=== PATIENT | male | born 1950 | race Caucasian/White ===

== ENCOUNTER → 2017-04-08 | Outpatient (CLI) | payer BC ==
[2017-04-08 08:18] LABS: BASOPHILS ABSOLUTE AUTO 0.04 K/mm3 (0.00-0.23); BASOPHILS PERCENT AUTO 0 % (0-2); EOSINOPHILS ABSOLUTE AUTO 0.07 K/mm3 (0.00-0.68); EOSINOPHILS PERCENT AUTO 1 % (0-6); Hemoglobin 13.7 g/dL (13.5-17.5); IMMATURE GRAN ABSOLUTE AUTO 0.04 K/mm3 (0.00-0.10); IMMATURE GRAN PERCENT AUTO 0 % (0-1); LYMPHOCYTES ABSOLUTE AUTO 0.78 K/mm3 (0.84-5.20); LYMPHOCYTES PERCENT AUTO 8 % (21-46); MONOCYTES ABSOLUTE AUTO 0.72 K/mm3 (0.16-1.47); MONOCYTES PERCENT AUTO 7 % (4-13); Mean Corpuscular HGB 30.7 pg (26.0-34.0); Mean Corpuscular HGB Conc 34.3 g/dL (31.5-36.5); Mean Corpuscular Volume 90 fL (80-100); NEUTROPHILS PERCENT AUTO 84 % (41-73); Platelet Count 211 K/mm3 (150-400); RDW Standard Deviation 39.1 fL (35.1-46.3); Red Blood Cell Count 4.46 M/mm3 (4.30-5.90); White Blood Cell Count 10.45 K/mm3 (4.00-11.30)
[2017-04-08 11:11] LABS: Alanine Aminotransfer (ALT/SGP 20 U/L (12-78); Albumin, Blood 3.8 g/dL (3.4-5.0); Alk Phos 73 U/L (50-136); Anion Gap 6 mmol/L (6-16); Aspartate Aminotrans (AST/SGOT 14 U/L (12-37); Bilirubin, Total 0.6 mg/dL (0.1-1.0); Blood Urea Nitrogen 22 mg/dL (8-24); Bun/Creatinine Ratio 24.7 (12.0-20.0); CO2, Blood 28 mmol/L (21-32); Calcium, Blood 9.4 mg/dL (8.5-10.1); Chloride, Blood 103 mmol/L (98-108); Creatinine, Blood 0.89 mg/dL (0.60-1.20); Globulin, Blood 3.7 g/dL (2.2-4.0); Glomerular Filtration Rate >60 (60-); Glucose, Blood 306 mg/dL (70-99); Potassium, Blood 4.4 mmol/L (3.5-5.5); Sodium, Blood 137 mmol/L (136-145); Total Protein, Blood 7.5 g/dL (6.4-8.2)
== END | disposition home or self-care (01) ==
LOC: LAB EV 08:13
PROVIDERS: Physician Assistant
DX: E11.9 Type 2 diabetes mellitus without complications (principal); M19.90 Unspecified osteoarthritis, unspecified site; R53.83 Other fatigue
CPT/HCPCS: 80053; 83036; 84443; 85025; 85651

== ENCOUNTER → 2017-10-16 | Outpatient (CLI) | payer BC ==
[2017-10-16 09:35] LABS: Microalb/Creat Ratio UR, Rand 3.681 mg/g (0.000-30.000); Microalbumin, Random Urine 6.7 mg/L (0.000-20.000)
== END | disposition home or self-care (01) ==
LOC: LAB EV 05:30
PROVIDERS: Internal Medicine Endocrinology, Diabetes & Metabolism
DX: E10.65 Type 1 diabetes mellitus with hyperglycemia (principal)
CPT/HCPCS: 82043; 82570

== ENCOUNTER → 2018-10-13 | Outpatient (CLI) | payer BC ==
[2018-10-13 11:19] LABS: Microalb/Creat Ratio UR, Rand 4.906 mg/g (0.000-30.000); Microalbumin, Random Urine 10.4 mg/L (0.000-20.000)
== END | disposition home or self-care (01) ==
LOC: LAB EV 05:15
PROVIDERS: Internal Medicine Endocrinology, Diabetes & Metabolism
DX: E10.65 Type 1 diabetes mellitus with hyperglycemia (principal)
CPT/HCPCS: 82043; 82570

== ENCOUNTER 2021-02-20 18:03 | Inpatient (IN) | payer BC, MEDICARE ==
[~2021-02-20] VITALS: Ht 175.3 cm; Wt 91.5 kg
[2021-02-20] MEDS ORDERED: ASPI81CH PO (18:45)
[2021-02-20] MEDS ORDERED: ATOR20 PO (18:46)
[2021-02-20] MEDS ORDERED: DICL75ER PO (18:46)
[2021-02-20] MEDS ORDERED: HUMALOG KW100 UNIT/1 SC (18:47)
[2021-02-20] MEDS ORDERED: GVOKE HYPO0.5 MG/0.2 SQ (18:47)
[2021-02-20] MEDS ORDERED: EUTHYROX50 MCG PO (18:48)
[2021-02-20] MEDS ORDERED: TOUJEO SOL300 UNIT/2 SC (18:49)
[2021-02-20 19:26] LABS: BASOPHILS ABSOLUTE AUTO 0.04 K/mm3 (0.00-0.23); BASOPHILS PERCENT AUTO 0 % (0-2); EOSINOPHILS ABSOLUTE AUTO 0.03 K/mm3 (0.00-0.68); EOSINOPHILS PERCENT AUTO 0 % (0-6); Hematocrit 45.4 % (37.0-53.0); Hemoglobin 15.1 g/dL (13.5-17.5); IMMATURE GRAN ABSOLUTE AUTO 0.03 K/mm3 (0.00-0.10); IMMATURE GRAN PERCENT AUTO 0 % (0-1); LYMPHOCYTES ABSOLUTE AUTO 0.59 K/mm3 (0.84-5.20); LYMPHOCYTES PERCENT AUTO 6 % (21-46); MONOCYTES ABSOLUTE AUTO 0.36 K/mm3 (0.16-1.47); MONOCYTES PERCENT AUTO 4 % (4-13); Mean Corpuscular HGB 31.1 pg (26.0-34.0); Mean Corpuscular HGB Conc 33.3 g/dL (31.5-36.5); Mean Corpuscular Volume 94 fL (80-100); Mean Platelet Volume 9.1 fL (9.1-12.4); NEUTROPHILS ABSOLUTE AUTO 9.08 K/mm3 (1.96-9.15); NEUTROPHILS PERCENT AUTO 90 % (41-73); Platelet Count 261 K/mm3 (150-400); RDW Coefficient Variation 12.7 % (11.7-14.2); RDW Standard Deviation 43.9 fL (35.1-46.3); Red Blood Cell Count 4.85 M/mm3 (4.30-5.90); White Blood Cell Count 10.13 K/mm3 (4.00-11.30)
[2021-02-20 19:48] LABS: Troponin I <0.015 ng/mL (0.000-0.040)
[2021-02-20 20:01] LABS: Alanine Aminotransfer (ALT/SGP 21 U/L (12-78); Albumin, Blood 1.1 g/dL (3.4-5.0); Albumin/Globulin Ratio 0.3 (0.8-1.8); Alk Phos 87 U/L (50-136); Anion Gap 11 mmol/L (6-16); Aspartate Aminotrans (AST/SGOT 26 U/L (12-37); Bilirubin, Total 0.3 mg/dL (0.1-1.0); Blood Urea Nitrogen 142 mg/dL (8-24); Bun/Creatinine Ratio 26.4 (12.0-20.0); CO2, Blood 14 mmol/L (21-32); Calcium, Blood 7.9 mg/dL (8.5-10.1); Chloride, Blood 111 mmol/L (98-108); Creatinine, Blood 5.37 mg/dL (0.60-1.20); Globulin, Blood 3.4 g/dL (2.2-4.0); Glomerular Filtration Rate 11 (60-); Glucose, Blood 275 mg/dL (70-99); Sodium, Blood 136 mmol/L (136-145); Total Protein, Blood 4.5 g/dL (6.4-8.2)
[2021-02-20 21:55] LABS: Influenza A, PCR NEGATIVE (NEGATIVE); Influenza B, PCR NEGATIVE (NEGATIVE); Resp Syncytial Virus, PCR NEGATIVE (NEGATIVE); SARS-Cov-2 (COVID-19) PCR, MMC NEGATIVE (NEGATIVE)
[2021-02-20 22:18] LABS: Magnesium, Blood 3.1 mg/dL (1.6-2.4)
[2021-02-20 22:19] LABS: Albumin, Blood 1.2 g/dL (3.4-5.0); Albumin/Globulin Ratio 0.3 (0.8-1.8); Bilirubin, Total 0.2 mg/dL (0.1-1.0); Bun/Creatinine Ratio 26.6 (12.0-20.0); Calcium, Blood 8.6 mg/dL (8.5-10.1); Creatinine, Blood 5.34 mg/dL (0.60-1.20); Potassium, Blood 5.5 mmol/L (3.5-5.5); Total Protein, Blood 5.2 g/dL (6.4-8.2)
[2021-02-20 23:35] LABS: Source, Urine Clean Catch
[2021-02-20 23:37] LABS: Bilirubin, Urine Neg (Neg); Blood, Urine 3+ (Neg); Glucose Qualitative, Urine 3+ (Neg); Ketones, Urine 1+ (Neg); Leukocyte Esterase, Urine Neg (Neg); Nitrite, Urine Pos (Neg); Protein, Urine 4+ (Neg); Specific Gravity, Urine 1.015 (1.003-1.022); Urobilinogen, Urine NORM (Normal)
[2021-02-20 23:46] LABS: Appearance, Urine Hazy (Clear); Color, Urine Yellow (P-Yellow)
[2021-02-20 23:47] LABS: Amorphous Heavy (0-Heavy); Bacteria Mod /hpf; Red Blood Cells, Urine 0-2 /hpf (0-2); Squamous Epithelial Cells Few /hpf (Few); Transitional Epithelial Cells Few /hpf (0-Rare)
[2021-02-20 23:52] LABS: Albumin, Blood 1.2 g/dL (3.4-5.0); Anion Gap 10 mmol/L (6-16); Blood Urea Nitrogen 144 mg/dL (8-24); Bun/Creatinine Ratio 26.8 (12.0-20.0); CO2, Blood 18 mmol/L (21-32); Calcium, Blood 8.3 mg/dL (8.5-10.1); Chloride, Blood 110 mmol/L (98-108); Creatinine, Blood 5.37 mg/dL (0.60-1.20); Glomerular Filtration Rate 11 (60-); Glucose, Blood 292 mg/dL (70-99); Phosphorus, Blood 6.7 mg/dL (2.5-4.9); Potassium, Blood 5.4 mmol/L (3.5-5.5); Sodium, Blood 138 mmol/L (136-145)
[2021-02-21 05:27] LABS: BASOPHILS ABSOLUTE AUTO 0.04 K/mm3 (0.00-0.23); BASOPHILS PERCENT AUTO 1 % (0-2); EOSINOPHILS ABSOLUTE AUTO 0.26 K/mm3 (0.00-0.68); EOSINOPHILS PERCENT AUTO 3 % (0-6); Hematocrit 41.2 % (37.0-53.0); Hemoglobin 13.9 g/dL (13.5-17.5); IMMATURE GRAN ABSOLUTE AUTO 0.02 K/mm3 (0.00-0.10); IMMATURE GRAN PERCENT AUTO 0 % (0-1); LYMPHOCYTES ABSOLUTE AUTO 1.06 K/mm3 (0.84-5.20); LYMPHOCYTES PERCENT AUTO 12 % (21-46); MONOCYTES ABSOLUTE AUTO 0.58 K/mm3 (0.16-1.47); MONOCYTES PERCENT AUTO 7 % (4-13); Mean Corpuscular HGB 31.1 pg (26.0-34.0); Mean Corpuscular HGB Conc 33.7 g/dL (31.5-36.5); Mean Corpuscular Volume 92 fL (80-100); Mean Platelet Volume 9.3 fL (9.1-12.4); NEUTROPHILS ABSOLUTE AUTO 6.56 K/mm3 (1.96-9.15); NEUTROPHILS PERCENT AUTO 77 % (41-73); Platelet Count 281 K/mm3 (150-400); RDW Coefficient Variation 12.5 % (11.7-14.2); RDW Standard Deviation 42.4 fL (35.1-46.3); Red Blood Cell Count 4.47 M/mm3 (4.30-5.90); White Blood Cell Count 8.52 K/mm3 (4.00-11.30)
[2021-02-21 06:44] LABS: Albumin, Blood 1.1 g/dL (3.4-5.0); Albumin/Globulin Ratio 0.4 (0.8-1.8); Bilirubin, Total 0.2 mg/dL (0.1-1.0); Bun/Creatinine Ratio 26.3 (12.0-20.0); Calcium, Blood 7.8 mg/dL (8.5-10.1); Creatinine, Blood 5.66 mg/dL (0.60-1.20); Potassium, Blood 6.4 mmol/L (3.5-5.5); Total Protein, Blood 4.1 g/dL (6.4-8.2)
--- NOTE | 2021-02-21 07:09 | NUR ---
0700 CRITICAL K+ CALLED TO DR UMANZOR, STATES SHE WILL ORDER A NEPHROLOGY CONSULT AND TO CALL TEACHER OF THE HANDICAPPED WITH LAB RESULTS. PER ERROL BRONSON, SHE WILL CALL CONSULT IN TODAY WELL CRITICAL AND OTHER LAB RESULTS. JENNA MARSHALL
[2021-02-21 07:53] LABS: Uric Acid, Blood 8.2 mg/dL (3.5-7.2)
[2021-02-21 07:54] LABS: CPK Creatine Kinase 218 U/L (39-308)
[2021-02-21 07:55] LABS: Alanine Aminotransfer (ALT/SGP 24 U/L (12-78); Albumin, Blood 1.1 g/dL (3.4-5.0); Albumin/Globulin Ratio 0.4 (0.8-1.8); Alk Phos 83 U/L (50-136); Aspartate Aminotrans (AST/SGOT 19 U/L (12-37); Bilirubin, Direct <0.1 mg/dL (0.0-0.3); Bilirubin, Indirect Unable to Calculate mg/dL (0.1-0.7); Bilirubin, Total 0.2 mg/dL (0.1-1.0); Globulin, Blood 2.9 g/dL (2.2-4.0)
--- NOTE | 2021-02-21 09:30 | NUR ---
Primary RN attempting to place 16 wolof sanders and resistance met. I attempted with a 14 Sierra [place]an [place], but too much resistance and noted miniscule spot of blood on tip after removal. Pt reports surgery 40 years ago after falling while walking on a fence. Third attempt was made with 10 Sierra Leonean, and no resistance was felt, pt said it was much less painful, and easily made access and clear yellow urine evacuated, draining into collection bag. Reported to primary RN Meaghan.
--- NOTE | 2021-02-21 10:02 | NUR ---
K WAS 6.4 THIS AM RIGHT AT CHANGE OF SHIFT. NEW CONSULT FOR NEPHROLOGY WAS PLACED AND DR. JAY ROUNDED ON PT. ADDED SODIUM BICARB AND PO MED FOR HIGH POTASSIUM. BUMEX ALSO ORDERED AND GIVEN THIS AM. PT WAS UNABLE TO VOID THIS AM, BLADDER SCAN >500. DR. JAY NOTIFIED, AND ORDERED NOEL, PSA AND FLOMAX. WE HAD A DIFFICULT TIME PLACING NOEL AND ENDED UP HAVING TO PLACE PEDIATRIC NOEL CATH DUE TO RESISTANCE. NOEL IS NOW DRAINING WELL.
[2021-02-21 10:10] LABS: Source, Urine Catheter
[2021-02-21 10:18] LABS: Appearance, Urine Clear (Clear); Bilirubin, Urine Neg (Neg); Blood, Urine 2+ (Neg); Color, Urine Yellow (P-Yellow); Glucose Qualitative, Urine 3+ (Neg); Ketones, Urine Neg (Neg); Leukocyte Esterase, Urine Neg (Neg); Nitrite, Urine Neg (Neg); Protein, Urine 4+ (Neg); Specific Gravity, Urine 1.015 (1.003-1.022); Urobilinogen, Urine NORM (Normal)
[2021-02-21 10:32] LABS: White Blood Cells, Urine 0-2 /hpf (0-5)
[2021-02-21 10:33] LABS: Squamous Epithelial Cells Few /hpf (Few)
[2021-02-21 10:34] LABS: Bacteria Few /hpf
[2021-02-21 10:35] LABS: Amorphous Mod (0-Heavy)
--- NOTE | 2021-02-21 16:19 | NUR ---
I went to visit patient in his [facility] room PCU 12. His , Rosamaria Lala was there with him. Patient was alert and pleasant. Vipul is primarily independent in the home, still drives, manages his own medications and does not need very much help or if any with his ADLs. If home health is ordered, patient does not have a preference and has never received home health services before. Patient and his prefer he does not go to a SNF, if recommended. They live in a single story home. Patient is not a and does not receive benefits. Patient uses a CPAP at home and DM supplies.
--- NOTE | 2021-02-21 18:41 | NUR ---
Pt A&Ox4, pleasant with cares and can be forgetful at times. VSS on RA, BP was slighly elevated in AM, but trending down. PRN bp medication parameters were not met. Sodium bicarb running 50ml/hr throughout the day. Lokelma given in AM. K 6.4 in AM and was 5.8 at 1100 recheck. CBG 200-300s, sliding scale used as well as 10units lispro with each meal. Dixon was placed in AM and was difficult to place, a 10 japanese catheter was placed and draining well.
--- NOTE | 2021-02-21 21:46 | NUR ---
ASSUMED CARE OF PATIENT AT [facility] 1900 FROM IONA Matrinez RN. PATIENT ALERT AND ORIENTED X4; FORGETFUL AT TIMES. PATIENT LOOKED AT WATCH FOR DATE. PATIENT DENIES NUMBNESS, TINGLING, DIZZINESS AND NAUSEA. NSR ON TELE; OXYGEN SATURATION ABOVE 90% ON ROOM AIR. BICARB GTT. URINARY CATH DRAINING TO GRAVITY; FLUID RESTRICTION.
[2021-02-22 06:04] LABS: Hematocrit 38.2 % (37.0-53.0); Hemoglobin 13.1 g/dL (13.5-17.5)
--- NOTE | 2021-02-22 06:14 | NUR ---
PATIENT SLEPT ABOUT SEVEN HOURS; NO ACUTE CHANGES TO REPORT.
[2021-02-22 06:29] LABS: Anion Gap 9 mmol/L (6-16); Blood Urea Nitrogen 144 mg/dL (8-24); Bun/Creatinine Ratio 25.6 (12.0-20.0); CO2, Blood 19 mmol/L (21-32); Calcium, Blood 8.1 mg/dL (8.5-10.1); Chloride, Blood 111 mmol/L (98-108); Creatinine, Blood 5.62 mg/dL (0.60-1.20); Glomerular Filtration Rate 10 (60-); Glucose, Blood 199 mg/dL (70-99); Magnesium, Blood 3.1 mg/dL (1.6-2.4); PSA, %Free 37.7 %; PSA, Free 0.221 ng/mL; Phosphorus, Blood 6.6 mg/dL (2.5-4.9); Potassium, Blood 4.6 mmol/L (3.5-5.5); Prostate Specific Antigen 0.586 ng/mL (0.000-4.000); Sodium, Blood 139 mmol/L (136-145)
--- NOTE | 2021-02-22 18:13 | NUR ---
SHIFT SUMMARY PT HAS BEEN SLEEPING OFF AND ON IN BED. PT EXPRESSED A DESIRE FOR THE DOCTOR TO ROUND ONCE A FAMILY MEMBER WAS PRESENT, THE DOCTOR AGREED. PT HAD SOME QUESTIONS ABOUT CARE AND LAB RESULTS WHICH WERE DISCUSSED WITH THE PT. VSS, NO CHANGES TO CURRENT CONDITION.
[2021-02-23 04:41] LABS: Hematocrit 38.5 % (37.0-53.0); Hemoglobin 13.2 g/dL (13.5-17.5)
[2021-02-23 05:25] LABS: Anion Gap 7 mmol/L (6-16); Blood Urea Nitrogen 144 mg/dL (8-24); Bun/Creatinine Ratio 26.5 (12.0-20.0); CO2, Blood 23 mmol/L (21-32); Calcium, Blood 7.6 mg/dL (8.5-10.1); Chloride, Blood 112 mmol/L (98-108); Creatinine, Blood 5.44 mg/dL (0.60-1.20); Glomerular Filtration Rate 11 (60-); Glucose, Blood 119 mg/dL (70-99); Magnesium, Blood 3.1 mg/dL (1.6-2.4); Phosphorus, Blood 7.2 mg/dL (2.5-4.9); Potassium, Blood 4.8 mmol/L (3.5-5.5); Sodium, Blood 142 mmol/L (136-145)
--- NOTE | 2021-02-23 05:26 | NUR ---
SHIFT SUMMARY PT A&OX4. SP02>90% ON RA. TELEMETRY READS NSR, HR 60S. RADIOLOGY CALLED TO NOTIFY OF THROMBUS SURROUNDING PT'S CURRENT IV. IV THEN REMOVED AND POWERGLIDE PLACED IN OPPOSITE (RIGHT) UPPER ARM. INFUSING BICARB PER EMAR. PT HAS OWN GLUCOSE MONTIOR. AT APPROX 2100, MONITOR READ GLUCOSE LEVEL OF 60. PT GIVEN JUICE, CHEESE, AND CRACKERS. SUGAR RECHECKED W/ CBG MACHINE TO READ 100. PT ADHERED TO CURRENT FLUID RESTRICTION. NOEL CATHETER DRAINING YELLOW URINE TO GRAVITY. NO BM THIS SHIFT. PT SLEPT OFF AND ON DURING NIGHT. CALL LIGHT IN REACH. WILL GIVE REPORT TO ONCOMING NURSE.
--- NOTE | 2021-02-23 17:01 | NUR ---
SHIFT SUMMARY PT HAS BEEN RESTING IN BED TODAY, THEY TOOK A MIDDAY NAP. PT HAS VOICED NO C/O PAIN OR DISCOMFORT AND HAS REPOSITIONED SELF FREQUENTLY FOR COMFORT. PT AND FAMILY MEMBER HAD QUESTIONS ABOUT CURRENT CONDITION AND PLAN OF CARE. PT STATED THAT ALL QUESTIONS WERE ANSWERED SATISFACTORILY. VSS, NO ACUTE CHANGES.
[2021-02-24 04:30] LABS: Hematocrit 39.5 % (37.0-53.0); Hemoglobin 13.6 g/dL (13.5-17.5)
--- NOTE | 2021-02-24 05:08 | NUR ---
SHIFT SUMMARY PT A+OX4. ON RA WHILE AWAKE AND HOME CPAP WHILE ASLEEP. 1L FLUID RESTRICTION. NOEL IN PLACE DRAINING YELOW URINE TO GRAVITY. HR SR 70'S-90'S. BP ELEVATED. RELIEVED WITH LABATELOL. HYDRALAZINE INEFFECTIVE. IN BED SLEEPING WITH CALL ALARM AT SIDE. WILL CONTINUE TO MONITOR UNTIL REPORT GIVEN
[2021-02-24 05:29] LABS: Anion Gap 11 mmol/L (6-16); Blood Urea Nitrogen 137 mg/dL (8-24); Bun/Creatinine Ratio 23.8 (12.0-20.0); CO2, Blood 22 mmol/L (21-32); Calcium, Blood 7.7 mg/dL (8.5-10.1); Chloride, Blood 110 mmol/L (98-108); Creatinine, Blood 5.75 mg/dL (0.60-1.20); Glomerular Filtration Rate 10 (60-); Glucose, Blood 111 mg/dL (70-99); Magnesium, Blood 2.9 mg/dL (1.6-2.4); Sodium, Blood 143 mmol/L (136-145)
--- NOTE | 2021-02-24 15:40 | NUR ---
THIS RN CONTACTED DR JAY AT 1540 TO INFORM HIM THAT THE PT NOEL HAS PUT OUT ROUGHLY 250ML OF URINE AND THAT THE PT PHOSPHORUS LEVEL WAS AT 7.0. DR JAY INSTRUCTED THIS RN TO MAINTAIN THE BUMEX DOSE OF 4MG BID.
--- NOTE | 2021-02-24 17:58 | NUR ---
SHIFT SUMMARY PT A/O X4 AND COOPERATIVE OF CARE. PT SBP REMAINED IN THE 150'S T/O SHIFT, OTHER VSS T/O SHIFT WITH O2 SATS >94 ON RA. PT HAS BUE AND BLE EDEMA, DR JAY INCREASED BUMEX TO 4MG BID. PT HAS NOEL DRAINING TO GRAVITY, CLOUDY YELLOW URINE. NO REPORTS OF SHEST PAIN/PRESSURE T/O SHIFT. NO REPORTS OF DYSPNEA T/O SHIFT. PT WAS UP IN ROOM AND AMBULATED TO TOILET FOR BOWEL MOVEMENT TODAY WITH SBA OF STAFF, TOLERATED WELL. PT HAS BICARB RUNNING PER EMAR.
--- NOTE | 2021-02-24 21:45 | NUR ---
NADIA NOEL CHARGE ATTENDANTWINDOW TRIMMER APPRENTICE ORIENTATION RN AND I CHECKED CBG FOR HS INSULIN ORDER, PATIENT WAS 47 LAST RECIEVING INSULIN AT 1536 WHERE CBG WAS 75, APPLE JUICE WAS AT BEDSIDE AND PATIENT ONLY POSSIBLE SYMPTOM WAS HAVING DIFFICULTY WITH COMPLEX DECISIONS. 2 X APPLE JUICE GIVEN AND INCREASING BLOOD GLUCOSE FROM CBGS OF 67 AT 2125, AND 87 AT 2145. CALL WAS PLACED TO NIGHT , DR BOWEN CONTACTED CONTINUE TO MONITOR AND PRN CBGS FOR S/S OF HYPOGLYCEMIA. WILL CHECK AGAIN WITH 0000 VITALS.
[2021-02-25 04:35] LABS: Hematocrit 37.7 % (37.0-53.0); Hemoglobin 12.5 g/dL (13.5-17.5)
[2021-02-25 04:41] LABS: Anion Gap 8 mmol/L (6-16); Blood Urea Nitrogen 139 mg/dL (8-24); Bun/Creatinine Ratio 23.4 (12.0-20.0); CO2, Blood 24 mmol/L (21-32); Chloride, Blood 110 mmol/L (98-108); Creatinine, Blood 5.93 mg/dL (0.60-1.20); Glomerular Filtration Rate 10 (60-); Glucose, Blood 79 mg/dL (70-99); Magnesium, Blood 2.9 mg/dL (1.6-2.4); Phosphorus, Blood 7.1 mg/dL (2.5-4.9); Potassium, Blood 4.9 mmol/L (3.5-5.5); Sodium, Blood 142 mmol/L (136-145)
--- NOTE | 2021-02-25 06:30 | NUR ---
END OF SHIFT SUMMARY: PATIENT HAS BEEN RESTING THROUGHOUT THE NIGHT ON HOME CPAP, SPO2 96%, RA WHEN AWAKE. OF NOTE HAS BEEN HYPOGLYCEMIC ON HS CHECK WHICH WAS 49, GAVE JUICE AND HAS BEEN TRANDING UPWARD, MORNING LABS SHOWED 79 HELD LONG ACTING INSULIN. MORE JUICE GIVEN. ELECTROLYTE K+5 PHOS 7.0 Mg 2.9. PATIENT CAN HAVE DIFFICULTY WITH COMPLEX DECISION MAKING, BUT WITH RETEACHING HAS UNDERSTANDING OF SITUATION. IS HARD OF HEARING AT TIMES. SR 60-80'S HOWEVER ONCOMING TO SHIFT WAS HYPERTENSIVE SYS >160 PRN LOBATOLOL GIVEN. HAS BEEN 140-150'S. BICARB RUNNING AT 50. NOEL THAT IS DRAINING TO GRAVITY ONLY HAD ~ 375 OUTPUT THAT WAS YELLOW CLEAR AND FREE OF ODOR. DENIES CHEST PAIN WILL CONTINUE TO MONITOR AT THIS TIME.
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
--- NOTE | 2021-02-26 04:13 | NUR ---
SHIFT SUMMARY PT IS A 70 Y/O MALE, ADMITTED FOR HYPERKALEMIA. HE IS A&O X 3, FORGETFUL AT TIMES. SBA TO THE BATHROOM. NO C/O ACUTE PAIN, NAUSEA OR SOB. VITAL SIGNS STABLE. NOEL IN PLACE, PATENT AND DRAINING. NO OTHER ACUTE CHANGES IN PT CONDITION NOTED DURING THE NIGHT. WILL CONTINUE TO MONITOR AND TREAT PER EMAR UNTIL HAND OFF TO DAY SHIFT RN.
[2021-02-26 05:31] LABS: Hematocrit 35.5 % (37.0-53.0); Hemoglobin 12.1 g/dL (13.5-17.5)
[2021-02-26 05:52] LABS: Albumin, Blood 0.8 g/dL (3.4-5.0); Anion Gap 7 mmol/L (6-16); Blood Urea Nitrogen 140 mg/dL (8-24); Bun/Creatinine Ratio 24.6 (12.0-20.0); CO2, Blood 22 mmol/L (21-32); Calcium, Blood 7.3 mg/dL (8.5-10.1); Chloride, Blood 111 mmol/L (98-108); Glomerular Filtration Rate 10 (60-); Glucose, Blood 211 mg/dL (70-99); Magnesium, Blood 2.6 mg/dL (1.6-2.4); Phosphorus, Blood 6.5 mg/dL (2.5-4.9); Potassium, Blood 5.3 mmol/L (3.5-5.5); Sodium, Blood 140 mmol/L (136-145)
--- NOTE | 2021-02-26 13:15 | NUR ---
echocardiogram complete
--- NOTE | 2021-02-26 18:20 | NUR ---
SHIFT SUMMARY: PT CONTINUES A&Ox3, FORGETFUL AT TIMES, [place] W/HEARING AIDS PRESENT. PT DENIES CHEST PAIN/SOB T/OUT SHIFT. PT DOES COMPLAIN OF DISCOMFORT AT HEAD OF PENIS, CATHETER APPEARS TO BE TOO SHORT AND PUSHING INTO HEAD OF PENIS. DR HOSKINS NOTIFIED, CATHETER DC'D W/OUT DIFFICULTY, PT ABLE TO VOID 460 ML SINCE REMOVAL. FLUID RESTRICTION AND DIURESIS CONTINUES PER ORDERS. BICARB INFUSION AT 50 ML/HR. ECHO COMPLETED TODAY. AT THIS TIME, PT IS RESTING QUIETLY IN ROOM WITH TV ON AND CALL LIGHT WITHIN REACH. WILL CONTINUE TO MONITOR AND TREAT ACCORDINGLY UNTIL CHANGE OF SHIFT.
--- NOTE | 2021-02-26 23:12 | NUR ---
REVIEWEING CHART SEEN TAHT PATIENT ALMBUMIN HAS DECREASED FROM 1.0 TO .8 WHICH IS THE LOWERST IS HAS BEEN SINCE BEING ADMITTED. SPOKE TO CARRIAGE DOGGER PROVIDER, SHE ORDERED ALBUMIN INTERFACED INTO CHART WILL AWAIT MED FROM PHARMACY TO ADMINISTER.
[2021-02-27 04:38] LABS: Hematocrit 32.8 % (37.0-53.0)
[2021-02-27 05:07] LABS: Albumin, Blood 1.3 g/dL (3.4-5.0); Anion Gap 11 mmol/L (6-16); Blood Urea Nitrogen 144 mg/dL (8-24); Bun/Creatinine Ratio 24.1 (12.0-20.0); CO2, Blood 24 mmol/L (21-32); Calcium, Blood 7.5 mg/dL (8.5-10.1); Chloride, Blood 105 mmol/L (98-108); Creatinine, Blood 5.98 mg/dL (0.60-1.20); Glomerular Filtration Rate 9 (60-); Glucose, Blood 262 mg/dL (70-99); Magnesium, Blood 2.6 mg/dL (1.6-2.4); Phosphorus, Blood 6.9 mg/dL (2.5-4.9); Potassium, Blood 4.8 mmol/L (3.5-5.5); Sodium, Blood 140 mmol/L (136-145)
--- NOTE | 2021-02-27 06:14 | NUR ---
END OF SHIFT SUMMARY: PATIENT RECIEVED ALBUMIN DURING SHIFT. BICARB STILL RUNNING LABS HAVE SLIGHTLY DECLINED, MENTATION HAS IMPROVED, AND SWELLING IS DOWN, ESPECIALLY IN REGAURDS TO THE SCROTAL SWELLING. PATIENT DENIES SCROTAL OR CHEST PAIN, BLOOD PRESSURE HAS BEEN BORDERLINE ELEVATED, RESTING FOR MOST OF THE NIGHT HELD HS INSULIN AND GAVE AB LANTUS. PIERRE FOLLOWING PATIENT. PATIENT HAS BEEN VOIDING EVEN AFTER DC'D OF THE NOEL DURING DAY SHIFT. PATIENT USING HOME CPAP WITH NO ISSUES, SWELLING IN BUE AND BLE AND SCROTUM DECREASED MINIMALLY FROM BEGGING OF SHIFT TO NOW. WILL CONTINUE TO MONITOR
--- NOTE | 2021-02-27 18:26 | NUR ---
SHIFT SUMMARY: NO ACUTE CHANGES T/OUT SHIFT. PT ALERT T/OUT SHIFT, MILD CONFUSION, COOPERATIVE WITH CARE. PT MAINTAINS O2 SATS >92% ON RA, USES CPAP AT NOC. EDEMA TO BUE AND SCROTUM HAVE IMPROVED SLIGHTLY, PT DENIES PAIN TO SCROTUM/PENIS. PT CONTINUES TO VOID T/OUT THE DAY W/OUT DIFFICULTY. ACHS BLOOD SUGAR CHECKS AND COVERAGE CONTINUE T/OUT SHIFT. NO SIGNIFICANT IMPROVEMENT TO LABS TODAY. DR JAY CONTINUES TO FOLLOW PT. AT THIS TIME, PT RESTING QUIETLY IN ROOM WITH CALL LIGHT WITHIN REACH. WILL CONTINUE TO MONITOR AND TREAT ACCORDINGLY UNTIL CHANGE OF SHIFT.
--- NOTE | 2021-02-27 22:52 | NUR ---
ASSUMED CARE OF PATIENT AT 1900. PLEASANTLY CONFUSED, WITH A/O TO SELF, PLACE, AND SITUATION, BUT UNABLE TO REMEMBER BIRTHDATE AND OTHER HAPPENINGS. MAINTAINS ABOVE 95% USING CPAP (HS), DENIES SOB. LS CLEAR ON TOP AND DIM AT BASES. SR ON MONITOR. STRONG +2 RADIAL PULSES AND +1 PEDALS. BUE AND BLE 2+ PITTING EDEMA WITH DEPENDENT SCROTAL EDEMA. PATIENT IS DIURESING, WILL CONTINUE TO MONITOR FOR RETENTION. WILL UPDATE CHANGES OCCUR.
[2021-02-28 05:20] LABS: BASOPHILS ABSOLUTE AUTO 0.03 K/mm3 (0.00-0.23); BASOPHILS PERCENT AUTO 0 % (0-2); EOSINOPHILS ABSOLUTE AUTO 0.37 K/mm3 (0.00-0.68); EOSINOPHILS PERCENT AUTO 4 % (0-6); Hematocrit 32.8 % (37.0-53.0); Hemoglobin 11.1 g/dL (13.5-17.5); IMMATURE GRAN ABSOLUTE AUTO 0.01 K/mm3 (0.00-0.10); IMMATURE GRAN PERCENT AUTO 0 % (0-1); LYMPHOCYTES ABSOLUTE AUTO 0.87 K/mm3 (0.84-5.20); LYMPHOCYTES PERCENT AUTO 9 % (21-46); MONOCYTES ABSOLUTE AUTO 0.77 K/mm3 (0.16-1.47); MONOCYTES PERCENT AUTO 8 % (4-13); Mean Corpuscular HGB 31.4 pg (26.0-34.0); Mean Corpuscular HGB Conc 33.8 g/dL (31.5-36.5); Mean Corpuscular Volume 93 fL (80-100); Mean Platelet Volume 9.8 fL (9.1-12.4); NEUTROPHILS ABSOLUTE AUTO 7.68 K/mm3 (1.96-9.15); NEUTROPHILS PERCENT AUTO 79 % (41-73); Platelet Count 163 K/mm3 (150-400); RDW Coefficient Variation 12.4 % (11.7-14.2); RDW Standard Deviation 42.4 fL (35.1-46.3); Red Blood Cell Count 3.53 M/mm3 (4.30-5.90); White Blood Cell Count 9.73 K/mm3 (4.00-11.30)
[2021-02-28 06:15] LABS: Alanine Aminotransfer (ALT/SGP 17 U/L (12-78); Albumin, Blood 1.4 g/dL (3.4-5.0); Albumin/Globulin Ratio 0.6 (0.8-1.8); Alk Phos 59 U/L (50-136); Anion Gap 11 mmol/L (6-16); Aspartate Aminotrans (AST/SGOT 19 U/L (12-37); Bilirubin, Total 0.3 mg/dL (0.1-1.0); Blood Urea Nitrogen 143 mg/dL (8-24); Bun/Creatinine Ratio 24.4 (12.0-20.0); CO2, Blood 25 mmol/L (21-32); Calcium, Blood 7.5 mg/dL (8.5-10.1); Chloride, Blood 105 mmol/L (98-108); Creatinine, Blood 5.87 mg/dL (0.60-1.20); Globulin, Blood 2.3 g/dL (2.2-4.0); Glomerular Filtration Rate 10 (60-); Glucose, Blood 238 mg/dL (70-99); Magnesium, Blood 2.7 mg/dL (1.6-2.4); Phosphorus, Blood 6.9 mg/dL (2.5-4.9); Potassium, Blood 4.3 mmol/L (3.5-5.5); Sodium, Blood 141 mmol/L (136-145); Total Protein, Blood 3.7 g/dL (6.4-8.2)
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
--- NOTE | 2021-02-28 18:28 | NUR ---
SHIFT SUMMARY PT CONTINUES TO BE MEDICAL NO TELE STATUS IN PCU. PT A&O X4. [place]. VSS. SPO2 > 92% ON RA. PT ANSHUL SWOLLEN & RED, PT REPORTS ARM RED FOR SOME TIME. ARM MEASURED & MARKED FOR MONITORING. PT W/ EDEMA TO BUE, BLE & SCROTUM. PT REPORTS VOIDING T/O DAY, NOT USING URINAL FOR MEASUREMENTS. NO EVENTS OVER DAY. WILL CONTINUE TO MONITOR UNTIL REPORT OFF TO DEATH CLAIM EXAMINER RN.
[2021-03-01 05:00] LABS: Hematocrit 32.4 % (37.0-53.0); Hemoglobin 11.1 g/dL (13.5-17.5)
[2021-03-01 05:18] LABS: Albumin, Blood 1.7 g/dL (3.4-5.0); Anion Gap 10 mmol/L (6-16); Blood Urea Nitrogen 149 mg/dL (8-24); Bun/Creatinine Ratio 26.7 (12.0-20.0); CO2, Blood 26 mmol/L (21-32); Calcium, Blood 8.2 mg/dL (8.5-10.1); Chloride, Blood 106 mmol/L (98-108); Creatinine, Blood 5.59 mg/dL (0.60-1.20); Glomerular Filtration Rate 10 (60-); Glucose, Blood 157 mg/dL (70-99); Magnesium, Blood 2.7 mg/dL (1.6-2.4); Phosphorus, Blood 7.4 mg/dL (2.5-4.9); Sodium, Blood 142 mmol/L (136-145)
--- NOTE | 2021-03-01 05:50 | NUR ---
SHIFT SUMMARY PT ALERT AND ORIENTED X3. BP STABLE. ON RA WHILE AWAKE AND CPAP WHILE ASLEEP MAINTAINING SATS OVER 95%. LUNG SOUNDS CLEAR. BLE SWELLING +1. VOIDING INDEPENDENTLY WITH URINAL. ANSHUL PG SALINE LOCKED, DRAWS BLOOD. NO C/O PAIN THIS EVENING. PT SLEEPING WITH CALL ALARM AT SIDE. WILL CONTINUE TO MONITOR UNTIL REPORT GIVEN
--- NOTE | 2021-03-01 15:59 | NUR ---
TRANSFER SURGICAL PT MEDICAL NO TELE STATUS, TRANSFERED TO RM 208 BY WHEELCHAIR @ APPROX 1600. PT A&O X4. VSS. SPO2 > 92% ON RA. CPAP FOR NOC USE. PT DENIES DIFFICULTY URINATING. PT SCROTUM SWELLING IMPROVING. ANSHUL REDNESS/SWELLING IMPROVED. NO EVENTS T/O DAY. REPORT GIVEN TO ACCEPTING RN PRIOR TO PT TRANSFER.
--- NOTE | 2021-03-01 18:17 | NUR ---
Pt transferred from PCU around 1600. VSS on RA, BP elevated and scheduled bp meds given. Albumin given per orders. Powerglide flushing well in right arm. Swelling present in all extremeties.
--- NOTE | 2021-03-01 21:40 | NUR ---
PT IN BED AND IS RESTING WELL, CONDITION IS STABLE. AAO, NO PAIN. EDEMA NOTED IN THE ANKLES, MEDICATED WIT DIURETIC INDICATED, ENCOURAGED LEG ELEVATION FOR COMFORT / RELIEF. OTHER ASSISTANCE WITH CARE AND ADL PROVIDED, ASSISTED WITH BATHROOM AND TOILETING NEEDS. HIS CALL LIGHT WAS GIVEN TO HIM AND WAS ENCOURAGED TO CALL FOR HELP WHEN ASSISTANCE IS NEEDED.
[2021-03-02 06:05] LABS: Hematocrit 35.4 % (37.0-53.0); Hemoglobin 11.8 g/dL (13.5-17.5)
[2021-03-02 06:56] LABS: Albumin, Blood 1.9 g/dL (3.4-5.0); Anion Gap 15 mmol/L (6-16); Blood Urea Nitrogen 145 mg/dL (8-24); Bun/Creatinine Ratio 26.3 (12.0-20.0); CO2, Blood 21 mmol/L (21-32); Calcium, Blood 7.9 mg/dL (8.5-10.1); Chloride, Blood 104 mmol/L (98-108); Creatinine, Blood 5.51 mg/dL (0.60-1.20); Glomerular Filtration Rate 10 (60-); Glucose, Blood 317 mg/dL (70-99); Magnesium, Blood 2.9 mg/dL (1.6-2.4); Phosphorus, Blood 7.4 mg/dL (2.5-4.9); Potassium, Blood 4.6 mmol/L (3.5-5.5); Sodium, Blood 140 mmol/L (136-145)
--- NOTE | 2021-03-02 15:20 | NUR ---
Brief supportive visit this afternoon. Pt resting in bed upon arrival. Pt is A&O and denies pain at this time. Pt denies dyspnea and anxiety. Engaged in therapeutic listening as Pt reports be and has 2 adult children. Pt reports family is supportive of any needs he may have. 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 Discussed considering completing an advanced directive with Pt expressing no interest at this time. Pt reports his family knows his wishes. Continued therapeutic listening then ended visit to allow Pt to rest. Pt reports no concerns at this time. Palliative Care will remain available.
--- NOTE | 2021-03-03 05:23 | NUR ---
Pt in bed at this time where he remains much of the night and is resting comfortably in stable condition. AAO, denies pain and discomfort. Assisted with care and adls, medicated as ordered. Assisted with toileting and bathroom needs, assistaing with position change in efforts to enhance comfort. His call light was placed near him and was encouraged to call for help when assistance is needed as he is monitored.
[2021-03-03 08:03] LABS: Albumin, Blood 2.4 g/dL (3.4-5.0); Anion Gap 15 mmol/L (6-16); Blood Urea Nitrogen 144 mg/dL (8-24); CO2, Blood 22 mmol/L (21-32); Calcium, Blood 8.2 mg/dL (8.5-10.1); Chloride, Blood 104 mmol/L (98-108); Creatinine, Blood 6.01 mg/dL (0.60-1.20); Glomerular Filtration Rate 9 (60-); Glucose, Blood 169 mg/dL (70-99); Magnesium, Blood 2.7 mg/dL (1.6-2.4); Phosphorus, Blood 6.9 mg/dL (2.5-4.9); Potassium, Blood 3.8 mmol/L (3.5-5.5); Sodium, Blood 141 mmol/L (136-145)
--- NOTE | 2021-03-03 15:00 | NUR ---
ASSUMPTION OF CARE. NO CHANGES NOTED FROM AM ASSESSMENT. PT IN NO APPARENT DISTRESS AT THIS TIME. WILL CONTINUE TO MONITOR.
--- NOTE | 2021-03-03 15:11 | NUR ---
PATIENT SUMMARY; PATIENT UP AND SHOWER TODAY. IN ROOM AT THIS TIME. NEW ORDERS RECIEVED FOR NPO P MN, DID TALK WITH DR. JAY, PLAN: PERMACATH PLACEMENT 03/04. PATIENT WITH NO COMPLAINTS, REMAINS ON FLUID RESTRICTION.
--- NOTE | 2021-03-04 01:18 | NUR ---
PTS BED ALARM GOING OFF WHEN I ENTERED ROOM I FOUND PT SITTING ON EDGE OF BED CONFUSED.RAMBLING ABOUT WORK AND STATES HE KNOWS WHERE HE IS AT, BUT IS POINTING TO CEILING AND TALKING OF WELDING A PIPE ONTO THE FIRE SPRINKLER AND WAS TALKING OF SOMETHING COMING THROUGH CEILING PT CALLED AND CONTINUED CONFUSED.DROP HAMMER MECHANIC DANNY HERNANDEZ SPOKE WITH ON PHONE AND STATED THAT PT HAS HAD ISSUES AT HOME UPON WAKING WITH CONFUSION AND VISUAL HALLUCINATIONS.ON ADMIT REPORTED EARLY ONSET DEMENTIA,I CALLED DR MORRISSEY AND RECEIVED ORDERS.
--- NOTE | 2021-03-04 03:39 | NUR ---
PT HAD HALDOL PER ORDER AND IS CALM AND RETING WITH CPAP IN PLACE AT THIS TIME.
[2021-03-04 04:42] LABS: Hematocrit 31.8 % (37.0-53.0); Hemoglobin 10.7 g/dL (13.5-17.5)
[2021-03-04 05:12] LABS: Albumin, Blood 2.3 g/dL (3.4-5.0); Anion Gap 16 mmol/L (6-16); Blood Urea Nitrogen 147 mg/dL (8-24); Bun/Creatinine Ratio 23.9 (12.0-20.0); CO2, Blood 21 mmol/L (21-32); Chloride, Blood 102 mmol/L (98-108); Creatinine, Blood 6.14 mg/dL (0.60-1.20); Glomerular Filtration Rate 9 (60-); Glucose, Blood 302 mg/dL (70-99); Magnesium, Blood 2.7 mg/dL (1.6-2.4); Phosphorus, Blood 6.8 mg/dL (2.5-4.9); Potassium, Blood 4.2 mmol/L (3.5-5.5); Sodium, Blood 139 mmol/L (136-145)
--- NOTE | 2021-03-04 08:07 | NUR ---
SUMMARY PT RESTING QUIETLY AT SHIFT CHANGE. NPO PENDING POSSIBLE PLACEMENT OF DIALYSIS CATH TODAY.
--- NOTE | 2021-03-04 08:33 | NUR ---
0800 PRIMARY RN NOTIFIED OF PATIENT'S V/S ESPECIALLY HR & TEMP.
--- NOTE | 2021-03-04 09:01 | NUR ---
0800 NOTIFIED PRIMARY RN OF CBG RESULT OF 340.
[2021-03-04 10:49] LABS: Influenza A, PCR NEGATIVE (NEGATIVE); Influenza B, PCR NEGATIVE (NEGATIVE); Resp Syncytial Virus, PCR NEGATIVE (NEGATIVE); SARS-Cov-2 (COVID-19) PCR, MMC NEGATIVE (NEGATIVE)
--- NOTE | 2021-03-04 10:55 | NUR ---
SPOKE WITH DR. LATIF AND BLANK, NURSING SUPERVISIOR AT THIS TIME. PT WILL BE GOING TO SURGERY FOR DIALYSIS CATH PLACEMENT. PT , TRISH NOTIFIED. PT NPO
--- NOTE | 2021-03-04 12:22 | NUR ---
PT TO OR AT 1200
--- NOTE | 2021-03-04 15:26 | NUR ---
POST OP: REPORT RECEIVED FROM YARD JOCKEY. PT TO UNIT AT 1345. UPON ASSESSMENT PT IS IN NO VISABLE DISTRESS, A/O, VSS, SURGICAL SITE WNL, DRESSING AT R CHEST CDI. PT BLADDER SCANED WITH 372ML OF URINE FOUND. PT ENCOURAGED TO VOID AND PT ABLE TO VOID 100ML AFTER SOME TIME OF TRYING. POST VOID RESIDUAL SHOWED 301ML. WILL CTM
--- NOTE | 2021-03-04 18:39 | NUR ---
SUMMARY: PT UNABLE TO VOID TONIGHT, BLADDER SCAN SHOWED OVER 390ML. PT STRAIGHT CATHED AND 390ML DRAINED. WILL CTM. OTHERWISE NO CHANGE, VSS, R CHEST DRESSING CDI. PT A/O, A LITTLE FORGETFUL BUT APPROPRIATE. WILL REPORT TO [facility].
[2021-03-05 04:57] LABS: Hematocrit 28.9 % (37.0-53.0); Hemoglobin 9.8 g/dL (13.5-17.5)
[2021-03-05 05:32] LABS: Magnesium, Blood 2.8 mg/dL (1.6-2.4)
[2021-03-05 05:37] LABS: Albumin, Blood 2.6 g/dL (3.4-5.0); Anion Gap 20 mmol/L (6-16); Blood Urea Nitrogen 156 mg/dL (8-24); Bun/Creatinine Ratio 20.9 (12.0-20.0); CO2, Blood 18 mmol/L (21-32); Calcium, Blood 8.1 mg/dL (8.5-10.1); Chloride, Blood 100 mmol/L (98-108); Creatinine, Blood 7.46 mg/dL (0.60-1.20); Glomerular Filtration Rate 7 (60-); Glucose, Blood 350 mg/dL (70-99); Phosphorus, Blood 7.9 mg/dL (2.5-4.9); Potassium, Blood 4.4 mmol/L (3.5-5.5); Sodium, Blood 138 mmol/L (136-145)
--- NOTE | 2021-03-05 06:14 | NUR ---
UPON WAKING THIS AM,PT UNABLE TO VOID AND HAS NO URGE TO VOID.PT HAS BEEN CATHED X1 PER DAYSHIFT AND HAS PENILE SWELLING AND HAS NEW PERMACATH PLACED PENDING DIALYSIS NEED.BLADDER SCAN [address] MORRISSEY AND RECEIVED ORDERS FOR NOEL.
--- NOTE | 2021-03-05 07:15 | NUR ---
SUMMARY DURING TIME I CALLED REGARDING NOEL,PT WAS ABLE TO VOID [address] AVILA HERE AND AWARE AND TEMPORARILY HOLDING NOEL TO DETERMINE IF VOIDING WILL CONTINUE. U/A ONLY FORDERED PER POLICY IF NOEL PLACED.
--- NOTE | 2021-03-05 10:14 | NUR ---
PT TO DIALYSIS AT ABOUT 0945
[2021-03-05 15:36] LABS: Source, Urine Catheter
[2021-03-05 15:46] LABS: Appearance, Urine Hazy (Clear); Bilirubin, Urine Neg (Neg); Blood, Urine 4+ (Neg); Color, Urine Yellow (P-Yellow); Glucose Qualitative, Urine 4+ (Neg); Ketones, Urine 2+ (Neg); Leukocyte Esterase, Urine 1+ (Neg); Nitrite, Urine Neg (Neg); Protein, Urine 4+ (Neg); Specific Gravity, Urine 1.015 (1.003-1.022); Urobilinogen, Urine NORM (Normal)
[2021-03-05 16:04] LABS: Amorphous Light (0-Heavy); Bacteria Mod /hpf; Squamous Epithelial Cells Not Seen /hpf (Few)
[2021-03-05 16:05] LABS: Renal Epithelial Few /hpf (0-Rare)
--- NOTE | 2021-03-05 16:10 | NUR ---
PT CBG [address] HOSKINS ASKED IF 7 UNITS OF HUMALOG SHOULD STILL BE GIVEN WITH MEAL..NO CHANGE IN ORDER. WILL CTM
[2021-03-06 05:33] LABS: Hematocrit 27.5 % (37.0-53.0); Hemoglobin 9.2 g/dL (13.5-17.5)
[2021-03-06 06:02] LABS: Albumin, Blood 2.4 g/dL (3.4-5.0); Anion Gap 15 mmol/L (6-16); Blood Urea Nitrogen 110 mg/dL (8-24); Bun/Creatinine Ratio 18.5 (12.0-20.0); CO2, Blood 24 mmol/L (21-32); Calcium, Blood 7.9 mg/dL (8.5-10.1); Chloride, Blood 102 mmol/L (98-108); Creatinine, Blood 5.95 mg/dL (0.60-1.20); Glomerular Filtration Rate 9 (60-); Glucose, Blood 226 mg/dL (70-99); Magnesium, Blood 2.4 mg/dL (1.6-2.4); Phosphorus, Blood 5.7 mg/dL (2.5-4.9); Potassium, Blood 3.7 mmol/L (3.5-5.5); Sodium, Blood 141 mmol/L (136-145)
[2021-03-06 07:07] LABS: HBSAG SCREEN Negative (Negative); HEP A AB, IGM Negative (Negative); HEP B CORE AB, IGM Negative (Negative); HEP C VIRUS AB <0.1 (0.0-0.9)
--- NOTE | 2021-03-06 07:07 | NUR ---
SUMMARY CBG AT HS 77 Gave juice and snack.later bianka and was 88. gave complex carbs and juice. f/u cbgs stable
--- NOTE | 2021-03-06 11:55 | NUR ---
[address] Otis HOSKINS RE: PT'S CBG OF 412, TELEPHONE ORDER RECEIVED TO GIVE LONG ACTING INSULIN/LANTUS 10 U NOW, 10 U OF REGULAR INSULIN COVERAGE & 5 U OF QUICK PEN/SHORT ACTING INSULIN, TORB.
--- NOTE | 2021-03-06 12:22 | NUR ---
0800 PT. HAS A DOUBLE LUMEN PICC LINE TO RIGHT ARM,INFUSING WELL,NO INFORMATION ENTERED ABOUT THIS ACCESS IN THE VASCULAR AREA.
--- NOTE | 2021-03-06 13:38 | NUR ---
NOTICED THAT THE KWIL PEN 10 U, REGULAR INSULIN 5 U & SEMGLEE /LONG ACTING INSULIN 10 U DID NOT GO THROUGH I SIGNED THEM AT 1150 WHEN I GAVE THEM, PHARMACY DEPT. NOTIFIED THROUGH PHONE.
--- NOTE | 2021-03-06 14:25 | NUR ---
PT ASKED THIS RN TO ASSESS PT DUE TO CHANGE IN MENTATION AND ELEVATED BLOOD GLUCOSE. PT IS A/O TO SELF/HOSPITAL/PRESIDENT, UNABLE TO VERBALIZE WHY HE IS HERE. DOES REPORT SEEING "PEOPLE BRINGING GROCERYS IN TO OTHERS". BLOOD GLUCOSE DOWN FROM PREVIOUS READING. MD NOTIFIED, HE WILL COME AND ASSESS.
--- NOTE | 2021-03-06 18:17 | NUR ---
1700 DR. Otis HOSKINS NOTIFIED OF PATIENT'S CBG OF 375, PHONE ORDER RECEIVED TO GIVE 10 U OF INSULIN COVERAGE, 5 U OF REGULAR INSULIN & 10 U OF LONG ACTING INSULIN ORDERED.
--- NOTE | 2021-03-07 00:15 | NUR ---
PT IN BED AT THIS TIME WHERE HE REMAINS MUCH OF THE NIGHT AND IS RESTING COMFORTABLY WITH EYES CLOSED, CONDITION IS STABLE. HE DENIES PAIN AND DISCOMFORT, MEDICATED ORDERED. HE IS ASSISTED WITH HIS CARE AND ADLS, ASSISTED BATHROOM AND TOILETING NEEDS, ASSISTED WITH POSITION CHANGE TO PROMOTE COMFORT. HIS CALL LIGHT PLACED NEAR HIM AND REMINDED TO CALL FOR HELP WHEN ASSISTANCE IS NEEDED HE IS MONITORED.
--- NOTE | 2021-03-07 08:52 | NUR ---
03/07/21 0852 Roselyn Larson VERIFICATIONS: EDIT CHART.
--- NOTE | 2021-03-07 10:23 | NUR ---
[address] Otis HOSKINS ON PT'S CBG RESULT, VERBAL ORDER RECEIVED TO GIVE INSULIN ORDERED IN EMAR.
--- NOTE | 2021-03-07 10:24 | NUR ---
0930 TAKEN PT. TO DIALYSIS VIS THE BED.
--- NOTE | 2021-03-07 12:23 | NUR ---
I called both [facility] and [facility] in [place] to start referral for HD placement and request patient be added to [facility]'s waiting list. I gave [facility] the patient's name, , Provider names and HD start date. I gave [facility] the patient's information via phone call and have faxed over the [facility] Referral form, patient face sheet, patient summary, patient demographcs, H&P, Heb B labs (antigen, surface, core antibody) dating 03/05/2021, negative covid history dating 03/04/2021, abd nist recebt chest xray dating 03/04/2021, operative report for permacath placement, Dr. Ricardo Nieves progress notes and eval, and HD flowsheets and evaluations from 03/05/2021 and 03/07/2021.
--- NOTE | 2021-03-07 15:54 | NUR ---
1215 PICKED UP PT. FROM HD & BROUGHT BACK TO HIS ROOM, 2 L OF FLUID REMOVED, NO NEW UNSUALITIES NOTED.
--- NOTE | 2021-03-07 16:03 | NUR ---
1530 HD ACCESS DRESSING CHANGED IT WAS NOTED WITH MINIMAL AMOUNT OF CLOTTED BLOOD AROUND THE AREA.
--- NOTE | 2021-03-07 16:10 | NUR ---
SHIFT SUMMARY: RECEIVED PT. TODAY CONFUSED RELATED TO HX OF EARLY DIMENTIA, AMBULATED TO THE BATHROOM A LOT, ADVISED TO CALL FOR ANYTHING HE NEEDS & NOT FALL, CLWR,PT. FORGETS INFORMATION GIVEN TO HIM & GOES TO THE BATHROOM BY HIMSELF WITHOUT CALLING.HD ACCESS DRESSING CHANGED RELATED TO MINIMAL AMOUNT OF CLOTTED BLOOD AROUND IT, SECURED WELL WITH STERILE TEGADERM & WINDOW DRESSING, PORTS COVERED WITH COBAN WRAP. PT'S SPOUSE CAME AT 2 PM & STAYED WITH PT. THIS AFTERNOON. NO NEW UNUSUALITIES NOTED.WILL CONTINUE TO MONITOR.
--- NOTE | 2021-03-07 17:32 | NUR ---
SHIFT SUMMARY SURGICAL TRANSFER AT DINNER TIME. AT BEDSIDE. PATIENT SETTLED INTO ROOM. DENIES PAIN, NAUSEA, AND SHORTNESS OF BREATH. BED ALARAM ON FOR SAFETY. PATIENT ADVISED TO CALL BEFORE GETTING UP.
--- NOTE | 2021-03-07 18:14 | NUR ---
1715 TRANSFERRED PT. TO RM. 324, RECEIVED BY ROSAURA WEST, THOROUGH REPORT GIVEN, MEDICATIONS FROM THE PT'S DRAWER & CHART WERE HANDED TO TO ROSAURA WEST.
[2021-03-08 05:13] LABS: Hematocrit 28.5 % (37.0-53.0); Hemoglobin 9.7 g/dL (13.5-17.5)
[2021-03-08 05:51] LABS: Albumin, Blood 2.5 g/dL (3.4-5.0); Anion Gap 8 mmol/L (6-16); Blood Urea Nitrogen 76 mg/dL (8-24); Bun/Creatinine Ratio 13.8 (12.0-20.0); CO2, Blood 29 mmol/L (21-32); Calcium, Blood 8.1 mg/dL (8.5-10.1); Chloride, Blood 106 mmol/L (98-108); Glomerular Filtration Rate 10 (60-); Glucose, Blood 100 mg/dL (70-99); Magnesium, Blood 2.2 mg/dL (1.6-2.4); Phosphorus, Blood 4.5 mg/dL (2.5-4.9); Potassium, Blood 3.1 mmol/L (3.5-5.5); Sodium, Blood 143 mmol/L (136-145)
--- NOTE | 2021-03-08 06:52 | NUR ---
SHIFT SUMMARY ASSUMED CARE TO 1900. PT WAS VERY CONFUSED LAST NIGHT, AAOX1-2, TO SELF BUT WAS PLEASANT AND COOPERATIVE WITH CARE. PT WAS UNABLE TO ANSWER QUESTIONS APPROPRIATELY, WAS UNABLE TO STATE HIS DATE OF . THIS MORNING, HOWEVER, PT IS AAOX2-3 BUT REMAINS WITH PERIODS OF CONFUSION ESPECIALLY REGARDING NOEL CATHETER. PT USED CPAP LAST NIGHT. RUE POWERGLIDE SITE BENIGN. NOEL CATHETER PATENT, DRAINING URINE VIA GRAVITY. PT REMAINS WITH PENILE/SCROTAL AND BLE EDEMA. CBG LAST NIGHT WAS 124 MG/DL. R PERMACATH SITE UNCHANGED. BILATERAL HEARING AIDS AT BEDSIDE. NO ACUTE EVENTS OVERNMIGHT. BED REMAINS IN LOW POSITION WITH THE CALL LIGHT WITHIN EASY REACH. BED ALARM REMAINS ACTIVATED. WILL CONTINUE TO MONITOR.
--- NOTE | 2021-03-08 16:53 | NUR ---
SHIFT SUMMARY PT UP TO CHAIR FOR MEALS. MINIMAL ASSIST. NOEL CATH STILL IN PLACE AT THIS TIME. DRAINING WELL. PT MAINTAINING HIS FLUID RESTRICTION WELL SO FAR THIS SHIFT. PG DRESSING CHANGED TODAY. PT IN TO VISIT AT THIS TIME. BOWEL CARE ADDED TO EMAR AFTER RELAYING TO DR. HOSKINS THAT THE PT IS FEELING CONSTIPATED. NO OTHER ACURE CHANGES IN ASSESSMENT AT THIS TIME. VS REVIEWED. LYING IN BED AT THIS TIME.
[2021-03-09 05:37] LABS: Hematocrit 29.7 % (37.0-53.0); Hemoglobin 9.8 g/dL (13.5-17.5)
--- NOTE | 2021-03-09 06:32 | NUR ---
SHIFT SUMMARY ASSUMED CARE AT 1900. NO ACUTE EVENTS OVERNIGHT. PT WAS MORE CONFUSED LAST NIGHT IN COMPARISON TO THIS MORNING. LAST NIGHT PT COULD NOT RECITE HIS BIRTHDAY BUT KNEW HE WAS 70 YEARS OLD. PT'S CBG LAST NIGHT WAS 75MG/DL; BEDTIME SNACK WAS PROVIDED. SCHEDULED MEDICATIONS ADMINISTERED. RUE POWERGLIDE BENIGN, HAS +BLOOD RETURN. NOEL CATHETER PATENT, URINE DRAINING VIA GRAVITY. RIGHT CHEST PERMACATH DRESSING INTACT. ECCHYMOTIC AREA NEAR SUTURE LINE REMAINS. PT WITH GENERALIZED EDEMA BUT MORE NOTED TO BLEs AND RUE. PULSES PALPABLE. USED CPAP LAST NIGHT WITH CONTINUOUS PULSE OXIMETER SHOWING O2 SATS 98-100%. BED IN LOWEST POSITION WITH THE CALL LIGHT WITHIN EASY REACH AND BED ALARM ACTIVATED. FLUID RESTRICTION EDUCATION REINFORCED. WILL CONTINUE TO MONITOR.
[2021-03-09 06:33] LABS: Albumin, Blood 2.3 g/dL (3.4-5.0); Anion Gap 11 mmol/L (6-16); Blood Urea Nitrogen 79 mg/dL (8-24); Bun/Creatinine Ratio 12.5 (12.0-20.0); CO2, Blood 28 mmol/L (21-32); Calcium, Blood 7.7 mg/dL (8.5-10.1); Chloride, Blood 104 mmol/L (98-108); Creatinine, Blood 6.32 mg/dL (0.60-1.20); Glomerular Filtration Rate 9 (60-); Glucose, Blood 123 mg/dL (70-99); Magnesium, Blood 2.3 mg/dL (1.6-2.4); Phosphorus, Blood 4.7 mg/dL (2.5-4.9); Potassium, Blood 3.3 mmol/L (3.5-5.5); Sodium, Blood 143 mmol/L (136-145)
--- NOTE | 2021-03-09 18:45 | NUR ---
pt had dialysis today, removed 1600mls fluid, doing well, no complaints. call light in reach.
[2021-03-10 05:01] LABS: Hematocrit 29.1 % (37.0-53.0); Hemoglobin 9.5 g/dL (13.5-17.5)
--- NOTE | 2021-03-10 05:57 | NUR ---
SHIFT SUMMARY ASSUMED CARE AT 1900. PT AAOX2 WITH PERIODS OF INCREASED CONFUSION AND FORGETFULNESS. PT REMAINS IMPULSIVE. PT ON CPAP OVERNIGHT WITH CONTINUOUS PULSE OXIMETRY, SATS 95% AND ABOVE. CBG LAST NIGHT WAS 58, PT ASYMPTOMATIC. PT GIVEN SNACK. RUE POWERGLIDE DRESSING INTACT, SITE BENIGN. NOEL CATHETER REMAINS IN PLACE, DRAINING URINE VIA GRAVITY. BED IN LOW POSITION WITH CALL LIGHT WITHIN EASY REACH. BED ALARM ACTIVATED.
[2021-03-10 06:22] LABS: Albumin, Blood 2.2 g/dL (3.4-5.0); Anion Gap 7 mmol/L (6-16); Blood Urea Nitrogen 60 mg/dL (8-24); Bun/Creatinine Ratio 10.5 (12.0-20.0); CO2, Blood 31 mmol/L (21-32); Calcium, Blood 8.5 mg/dL (8.5-10.1); Chloride, Blood 108 mmol/L (98-108); Creatinine, Blood 5.73 mg/dL (0.60-1.20); Glomerular Filtration Rate 10 (60-); Glucose, Blood 64 mg/dL (70-99); Magnesium, Blood 2.3 mg/dL (1.6-2.4); Phosphorus, Blood 4.1 mg/dL (2.5-4.9); Potassium, Blood 3.6 mmol/L (3.5-5.5); Sodium, Blood 146 mmol/L (136-145)
--- NOTE | 2021-03-10 07:17 | NUR ---
ONCOMING NURSE UPDATED REGARDING THE NEED FOR 24 HR URINE COLLECTION TO BE STARTED, NOEL CATHETER DRAINAGE BAG WAS EMPTIED AT 0610. EMPTY BAG PLACED IN ICE-FILLED BASIN AND RED 24 HOUR URINE COLLECTION CONTAINER ASLO PLACED IN AN ICE-FILLED BASIN.
--- NOTE | 2021-03-10 17:19 | NUR ---
SHIFT SUMMARY 70 Y MALE ADMITTED WITH HYPERKALEMIA AND HEMODIALYSIS. PT IS A&O AT TIMES BUT HAS MOMENTS OF CONFUSION. PT HAS BEEN PLEASANT AND COOPERATIVE WITH CARE. 24 HOUR URINE COLLECTION IN PROCESS. PTS IN AT BEDSIDE DURING VISITING HOURS, NO OTHER CHANGES TO REPROT THIS SHIFT.
[2021-03-11 05:57] LABS: Hematocrit 30.2 % (37.0-53.0)
[2021-03-11 06:10] LABS: COMPLEMENT C3, SERUM 105 mg/dL (82-167); COMPLEMENT C4, SERUM 25 mg/dL (12-38)
--- NOTE | 2021-03-11 06:43 | NUR ---
SHIFT SUMMARY ASSUMED CARE TO 1900. PT MOSTLY AAOX1 LAST NIGHT. PT DID NOT GET MUCH SLEEP DUE TO BEING CONFUSED AND RESTLESS. PT REPEATEDLY GETTING OUT OF BED, TUGGING AT NOEL CATHETER AND FRUSTRATED BECAUSE HE WAS SO CONFUSED. PT CALLED TO SEE IF SHE COULD EXPLAIN WHERE HE WAS AND WHY HE WAS NOT HOME BUT IT PROVIDED NO SOLICE. PT RESTED FOR ABOUT 2 HOURS WITH CPAP IN PLACE. RIGHT CHEST PERMACATH AND RUE POWERGLIDE REMAIN IN PLACE WITH DRESSINGS INTACT. NOEL CATHETER STAT LOCK REPLACED. 24 HOUR URINE COLLECTION WAS RESTARTED AT 1900 DUE TO NO URINE BEING COLLECTED, OUTPUT DOCUMENTED ACCORDINGLY AND NOEL BAG/RED URINE CONTAINER IS SITTING IN CONTAINER WITH ICE. BED ALARM ACTIVATED, BED IS IN LOW POSITION WITH THE CALL LIGHT WITHIN REACH. PT IS A RISK FOR FALLS AND A RISK FOR INJURY.
[2021-03-11 06:53] LABS: Magnesium, Blood 2.4 mg/dL (1.6-2.4)
[2021-03-11 06:54] LABS: Albumin, Blood 2.1 g/dL (3.4-5.0); Anion Gap 9 mmol/L (6-16); Blood Urea Nitrogen 69 mg/dL (8-24); CO2, Blood 28 mmol/L (21-32); Calcium, Blood 8.3 mg/dL (8.5-10.1); Chloride, Blood 107 mmol/L (98-108); Glomerular Filtration Rate 8 (60-); Glucose, Blood 142 mg/dL (70-99); Phosphorus, Blood 4.1 mg/dL (2.5-4.9); Potassium, Blood 3.9 mmol/L (3.5-5.5); Sodium, Blood 144 mmol/L (136-145)
[2021-03-11 14:10] LABS: ANTI-DSDNA ANTIBODIES <1 IU/mL (0-9)
--- NOTE | 2021-03-11 17:57 | NUR ---
SHIFT SUMMARY 70 Y MALE ADMITTED FOR HYPERKALEMIA AND HEMODIALYSIS. PT IS ALERT, PLEASANT AND COOPERATIVE WITH CARE BUT DOES HAVE MOMENTS OF CONFUSION. PT IS REPORTED TO HAVE INCREASED CONFUSION AND AGGITATION AT NIGHT TIME, DISCUSSED THIS WITH MD AND NEW ORDERS FOR PRN TRAZADONE OBTAINED FOR HS USE. PT IS SCHEDULED FOR HD IN AM. NO OTHER CHANGES TO REPORT THIS SHIFT.
[2021-03-11 20:00] LABS: Protein, Urine Quantitative >2500.0 mg/dL (0.0-11.9)
--- NOTE | 2021-03-12 06:41 | NUR ---
SHIFT SUMMARY ASSUMED CARE AT 1900. NO ACUTE EVENTS OVERNIGHT. PT RESTED WELL MOST OF THE NIGHT WITH ONLY A FEW EPISODES OF AWAKENING CONFUSED AND WAS EASILY REDIRECTED. SCHEDULED MEDICATIONS ADMINISTERED. CBG LAST NIGHT WAS 96 MG/DL. RUE POWERGLIDE FLUSHES WITH EASE, + BLOOD RETURN AND DRESSING REMAINS INTACT. RIGHT CHEST PERMACATH DRESSING INTACT. THE PLAN IS FOR THE PT TO HAVE HD TODAY, PER SHIFT REPORT LAST NIGHT. NOEL CATHETER PATENT, DRAINING URINE VIA GRAVITY. BED IS IN LOW POSITION WITH THE CALL LIGHT WITHIN EASY REACH AND BED ALARM ACTIVATED. WILL CONTINUE TO MONITOR.
--- NOTE | 2021-03-12 16:05 | NUR ---
70 YEAR OLD MALE, COOPERATIVE WITH CARE. SON VISITED WITH PT AT BEDSIDE TODAY. BILATERAL HEARING AIDS WORN. NOEL IN PLACE, PATENT AND DRAINING BY GRAVITY. PT WAS ABLE TO GET A SHOWER TODAY WITH STANDBY ASSIST. [facility]. WAITING PLACEMENT FOR DIALYSIS CHAIR OUTPATIENT. CALL LIGHT WITHIN REACH OF PT.
--- NOTE | 2021-03-13 04:22 | NUR ---
SHIFT SUMMARY: PATIENT A&OX2-3, FORGETFUL, NO [facility] HEART SOUNDS, TRACE EDEMA BLE, LCTA, CPAP AT HS. NOEL CATH WITH CLEAR YELLOW OUTPUT, REDNESS TO SCROTUM. RIGHT CHEST PERMACATH.
[2021-03-13 05:26] LABS: Hemoglobin 9.3 g/dL (13.5-17.5)
[2021-03-13 06:11] LABS: Magnesium, Blood 2.3 mg/dL (1.6-2.4)
[2021-03-13 06:14] LABS: Albumin, Blood 1.7 g/dL (3.4-5.0); Anion Gap 10 mmol/L (6-16); Blood Urea Nitrogen 84 mg/dL (8-24); Bun/Creatinine Ratio 9.7 (12.0-20.0); CO2, Blood 27 mmol/L (21-32); Calcium, Blood 7.6 mg/dL (8.5-10.1); Chloride, Blood 107 mmol/L (98-108); Creatinine, Blood 8.65 mg/dL (0.60-1.20); Glomerular Filtration Rate 6 (60-); Glucose, Blood 161 mg/dL (70-99); Phosphorus, Blood 4.6 mg/dL (2.5-4.9); Potassium, Blood 4.1 mmol/L (3.5-5.5); Sodium, Blood 144 mmol/L (136-145)
[2021-03-13 14:10] LABS: A/G RATIO 1.4 (0.7-1.7); ALBUMIN 2.4 g/dL (2.9-4.4); ALPHA-1-GLOBULIN 0.2 g/dL (0.0-0.4); ALPHA-2-GLOBULIN 0.7 g/dL (0.4-1.0); BETA GLOBULIN 0.5 g/dL (0.7-1.3); GAMMA GLOBULIN 0.4 g/dL (0.4-1.8); GLOBULIN, TOTAL 1.8 g/dL (2.2-3.9); IMMUNOGLOBULIN A, QN, SERUM 56 mg/dL (61-437); IMMUNOGLOBULIN G, QN, SERUM 364 mg/dL (603-1613); IMMUNOGLOBULIN M, QN, SERUM 25 mg/dL (20-172); M-SPIKE Not Observed g/dL (Not Observed); PROTEIN, TOTAL, SERUM 4.2 g/dL (6.0-8.5)
--- NOTE | 2021-03-13 18:42 | NUR ---
SHIFT SUMMARY: PT HAD DIALYSIS TODAY AND TOLERATED WELL. PT EATING WELL, BUT MAKING HEALTHY CHOICES. HELD SS AND SCHED NOVOLOG AT LUNCH AND DINNER TIME. PT STEADY ON FEET, PLEASANT AND COOPERATIVE. CONFUSED AT TIMES.
--- NOTE | 2021-03-14 03:25 | NUR ---
SHIFT SUMMARY: STARTED THE NIGHT A&OX3, WOKE UP APPROX 2300 CONFUSED, MULTIPLE BED EXITS, TUGGING ON NOEL. PRN TRAZODONE GIVEN. +1 PITTING EDEMA BLE. LCTA, E/U RESP, CPAP HS. NOEL IN PLACE CLEAR YELLOW OUTPUT. REDNESS TO SCROTUM. SCATTERED ECCYMOSIS T/O BODY. FREQUENT REORIENTATION, AND REASSURANCE ON NOC.
[2021-03-14 05:43] LABS: BASOPHILS ABSOLUTE AUTO 0.04 K/mm3 (0.00-0.23); BASOPHILS PERCENT AUTO 1 % (0-2); EOSINOPHILS ABSOLUTE AUTO 0.17 K/mm3 (0.00-0.68); EOSINOPHILS PERCENT AUTO 3 % (0-6); Hematocrit 27.5 % (37.0-53.0); Hemoglobin 9.1 g/dL (13.5-17.5); IMMATURE GRAN ABSOLUTE AUTO 0.02 K/mm3 (0.00-0.10); IMMATURE GRAN PERCENT AUTO 0 % (0-1); LYMPHOCYTES ABSOLUTE AUTO 0.83 K/mm3 (0.84-5.20); LYMPHOCYTES PERCENT AUTO 14 % (21-46); MONOCYTES ABSOLUTE AUTO 0.92 K/mm3 (0.16-1.47); MONOCYTES PERCENT AUTO 15 % (4-13); Mean Corpuscular HGB 31.5 pg (26.0-34.0); Mean Corpuscular HGB Conc 33.1 g/dL (31.5-36.5); Mean Corpuscular Volume 95 fL (80-100); Mean Platelet Volume 9.4 fL (9.1-12.4); NEUTROPHILS ABSOLUTE AUTO 4.11 K/mm3 (1.96-9.15); NEUTROPHILS PERCENT AUTO 68 % (41-73); Platelet Count 151 K/mm3 (150-400); RDW Standard Deviation 41.9 fL (35.1-46.3); Red Blood Cell Count 2.89 M/mm3 (4.30-5.90); White Blood Cell Count 6.09 K/mm3 (4.00-11.30)
[2021-03-14 06:29] LABS: Albumin, Blood 1.7 g/dL (3.4-5.0); Anion Gap 9 mmol/L (6-16); Blood Urea Nitrogen 59 mg/dL (8-24); CO2, Blood 27 mmol/L (21-32); Calcium, Blood 8.5 mg/dL (8.5-10.1); Chloride, Blood 108 mmol/L (98-108); Creatinine, Blood 7.35 mg/dL (0.60-1.20); Glomerular Filtration Rate 7 (60-); Glucose, Blood 209 mg/dL (70-99); Magnesium, Blood 2.1 mg/dL (1.6-2.4); Phosphorus, Blood 3.9 mg/dL (2.5-4.9); Sodium, Blood 144 mmol/L (136-145)
--- NOTE | 2021-03-14 17:32 | NUR ---
SHIFT SUMMARY PT AxOx2-3. PLEASANT AND COOPERATIVE WITH CARE. REDIRECTABLE WHEN CONFUSED. DC'D NOEL CATHETER TODAY. CAPRI RESTRAINT DC'D TODAY. BED ALARM ON. PT ON FLUID RESTRICTION 1000ML. PT IN FOR VISIT, UPDATED ON PLAN OF CARE. NO DIALYSIS TODAY. PATIENT GOT CXR TODAY. PATIENT CURRENTLY RESTING IN BED WITH CALL LIGHT IN REACH. DENIES ANY NEEDS AT THIS TIME.
--- NOTE | 2021-03-14 22:12 | NUR ---
PER COY, IRENE, PT VOIDED 175ML DURING SHIFT CHANGE WHILE SHE AND THE DAYSHIFT DARREL BONILLA WERE ASSISTING HIM TO THE BATHROOM (POST NOEL CATHETER REMOVAL).
--- NOTE | 2021-03-15 06:01 | NUR ---
SHIFT SUMMARY ASSUMED CARE AT 1900. PT WAS VERY CONFUSED, RESTLESS, DELIRIOUS AND AGITATED IN THE BEGINNING OF THE SHIFT. HE WAS VERY FRUSTRATED AND VERY DIFFICULT TO REDIRECT. PT WAS MEDICATED WITH PRN TRAZODONE INITIALLY AND THEN GIVEN PRN DOSE OF SEROQUEL. PT FINALLY FELL ASLEEP AFTER MIDNIGHT W/ CPAP, SLEPT FOR 4 HOURS. HE WAS AWAKENED FOR LAB DRAW AT ABOUT 0430 AND WAS RESTLESS, CONFUSED AND DELIRIOUS. PT WAS UP IN HIS ROOM ANXIOUSLY SEARCHING THROUGH HIS DUFFLE BAG AND CHANGING CLOTHES. PT FINALLY WAS REMINDED THAT HIS DISCHARGE WAS ON HOLD DUE TO NO OUTPATIENT DIALYSIS CHAIR AVAILABILITY AND HE SEEMED TO REMEMBER AND CALM DOWN. HE REMAINS ON ROOM AIR. RIGHT CHEST PERMACATH DRESSING INTACT BUT PT HAS TO BE REMINDED NOT TO PICK AT IT. RUE POWERGLIDE DRESSING INTACT, FLUSHES EASILY BUT NO BLOOD RETURN. PT VOIDED AT THE BEGINNING OF THE SHIFT AT 1910 S/P NOEL CATHETER REMOVAL AT 1000. PT IS LAYING IN BED QUIETLY. BED IS IN LOW POSITION WITH THE CALL LIGHT WITHIN EASY REACH. WILL CONTINUE TO MONITOR.
[2021-03-15 06:02] LABS: Magnesium, Blood 2.3 mg/dL (1.6-2.4)
[2021-03-15 06:09] LABS: Albumin, Blood 1.8 g/dL (3.4-5.0); Anion Gap 8 mmol/L (6-16); Blood Urea Nitrogen 71 mg/dL (8-24); Bun/Creatinine Ratio 8.4 (12.0-20.0); CO2, Blood 29 mmol/L (21-32); Calcium, Blood 8.4 mg/dL (8.5-10.1); Chloride, Blood 109 mmol/L (98-108); Creatinine, Blood 8.49 mg/dL (0.60-1.20); Glomerular Filtration Rate 6 (60-); Glucose, Blood 65 mg/dL (70-99); Phosphorus, Blood 4.2 mg/dL (2.5-4.9); Potassium, Blood 3.6 mmol/L (3.5-5.5); Sodium, Blood 146 mmol/L (136-145)
--- NOTE | 2021-03-15 06:37 | NUR ---
DR. JAY ON FLOOR, ROUNDING. NOTIFIED OF PT'S CRITICAL CREATININE LEVEL OF 8.490. NO NEW ORDERS.
[2021-03-15 07:09] LABS: ANTIGLOMERULAR BM AB 3 units (0-20)
[2021-03-15 11:09] LABS: M-SPIKE, % Not Observed % (Not Observed); PROTEIN,TOTAL,URINE 4140.6 mg/dL (Not Estab.)
[2021-03-15 13:09] LABS: ANA DIRECT Negative (Negative); ANTIMYELOPEROXIDASE (MPO) ABS <9.0 U/mL (0.0-9.0); ANTIPROTEINASE 3 (PR-3) ABS <3.5 U/mL (0.0-3.5); ATYPICAL PANCA <1:20 titer (Neg:<1:20); CYTOPLASMIC (C-ANCA) <1:20 titer (Neg:<1:20); PERINUCLEAR (P-ANCA) <1:20 titer (Neg:<1:20)
--- NOTE | 2021-03-15 20:05 | NUR ---
SUMMARY- PT UP IN THE CHAIR MOST OF THE DAY. VERY DISORIENTED THIS AM, ALERT TO SELF ONLY. CLEARED UP IN THE AFTERNOON AFTER DIALYSIS. ABLE TO STATE THE MONTH AND YEAR, STATES THAT HE IS IN A "[place]ISON", ASKED OF PRESIDENT AND STATED "OH, I WISH I DIDN'T KNOW". TOLERATING ALL FOOD AND FOLLOWING FLUID RESIRICTION. VOIDED ONCE TODAY AROUND 1500 200ML. DIALYSIS TOOK OFF 2L TODAY. CAME IN TO VISIT AT 1500, STATES PT IS VERY DISORIENTED. BECAME MORE DISORIENTED TOWARDS EVENING. REPORTED TO NOC RN.
--- NOTE | 2021-03-16 05:49 | NUR ---
SHIFT SUMMARY ASSUMED CARE AT 1900. AT THE BEGINNING OF SHIFT, PT VERY CONFUSED, RESTLESS, AGITATED AND DIFFICULT TO REDIRECT. PT MEDICATED WITH SCHEDULED MEDICATIONS, ALONG WITH PRN SEROQUEL AND TRAZODONE. PT BEHAVIOR REMAINED UNCHANGED UNTIL AFTER MIDNIGHT WHEN HE FINALLY WENT TO SLEEP. PT DID REFUSE TO WEAR CPAP LAST NIGHT. THIS MORNING PT OS CALM BUT REMAINS CONFUSED AND IS EASILY REDIRECTED. RIGHT CHEST PERMACATH DRESSING INTACT. RUE POWERGLIDE. NO COMPLAINTS VOICED THIS MORNING. PT IN BED, AWAKE AND QUIET, WATCHING TELEVISION. BED IN LOW POSITION WITH THE CALL LIGHT WITHIN EASY REACH, BED ALARM ACTIVATED. WILL CONTINUE TO MONITOR.
[2021-03-16 09:52] LABS: BASOPHILS ABSOLUTE AUTO 0.04 K/mm3 (0.00-0.23); BASOPHILS PERCENT AUTO 1 % (0-2); EOSINOPHILS PERCENT AUTO 2 % (0-6); Hematocrit 28.6 % (37.0-53.0); Hemoglobin 9.3 g/dL (13.5-17.5); IMMATURE GRAN ABSOLUTE AUTO 0.03 K/mm3 (0.00-0.10); IMMATURE GRAN PERCENT AUTO 1 % (0-1); LYMPHOCYTES ABSOLUTE AUTO 0.82 K/mm3 (0.84-5.20); LYMPHOCYTES PERCENT AUTO 13 % (21-46); MONOCYTES ABSOLUTE AUTO 0.53 K/mm3 (0.16-1.47); MONOCYTES PERCENT AUTO 9 % (4-13); Mean Corpuscular HGB 31.1 pg (26.0-34.0); Mean Corpuscular HGB Conc 32.5 g/dL (31.5-36.5); Mean Corpuscular Volume 96 fL (80-100); Mean Platelet Volume 9.8 fL (9.1-12.4); NEUTROPHILS ABSOLUTE AUTO 4.73 K/mm3 (1.96-9.15); NEUTROPHILS PERCENT AUTO 76 % (41-73); Platelet Count 111 K/mm3 (150-400); RDW Coefficient Variation 11.9 % (11.7-14.2); RDW Standard Deviation 41.4 fL (35.1-46.3); Red Blood Cell Count 2.99 M/mm3 (4.30-5.90); White Blood Cell Count 6.25 K/mm3 (4.00-11.30)
[2021-03-16 10:38] LABS: Albumin, Blood 1.7 g/dL (3.4-5.0); Anion Gap 12 mmol/L (6-16); Blood Urea Nitrogen 56 mg/dL (8-24); Bun/Creatinine Ratio 7.9 (12.0-20.0); CO2, Blood 27 mmol/L (21-32); Chloride, Blood 104 mmol/L (98-108); Creatinine, Blood 7.07 mg/dL (0.60-1.20); Glomerular Filtration Rate 8 (60-); Glucose, Blood 267 mg/dL (70-99); Phosphorus, Blood 3.6 mg/dL (2.5-4.9); Potassium, Blood 3.9 mmol/L (3.5-5.5); Sodium, Blood 143 mmol/L (136-145)
--- NOTE | 2021-03-16 16:52 | NUR ---
DAY SHIFT SUMMARY PLEASANTLY CONFUSED PT. FORGETFUL, EXPERIENCES CONFUSION WITH FINDING WORDS. PT IS ABLE TO AMBULATE SELF IN ROOM WITH SUPERVISION. BLE EDEMA PRESENT. DIALYSIS WAS PROVIDED TODAY WITHOUT REPORTED ISSUE. SON AT BEDSIDE TO VISIT DURING VISITING HOURS. PT IS AWAITING PLACEMENT FOR DIALYSIS CHAIR TIME OUTPATIENT. CALL LIGHT WITHIN REACH OF PT WITH FREQUENT ROUNDIND DUE TO CONFUSION.
--- NOTE | 2021-03-16 20:48 | NUR ---
BLOOD GLUCOSE 47MG/DL, 52 MG/DL ON RECHECK. PT GIVEN SNACK. PT ASYMPTOMATIC. CONTINUE TO MONITOR.
--- NOTE | 2021-03-17 02:00 | NUR ---
PT WOKE UP CONFUSED AND AGGRESSIVE, DIFFICULT TO REDIRECT AND REORIENT. PT YANKED CALL LIGHT FROM ITS CONNECTION TO THE WALL AND WAS DELIRIOUS. PT REFUSED TO LISTEN TO ANY DIRECTIONS OR REORIENTATION ATTEMPTS. I WAS FINALLY ABLE TO CALM THE PT DOWN AND NOTED BLOOD ON HIS BRIGHT NEON YELLOW RIGHT UPPER SLEEVE. PT HAD PULLED OUT HIS RUE POWERGLIDE W/ CATH TIP INTACT. RIGHT CHEST PERMACATH STILL INTACT AND TAPED DOWN AN EFFORT TO DETER PT FROM PULLING IT OUT WELL. I CALMLY AND SLOWLY EXPLAINED TO THE PT WHY HE IS IN THE HOSPITAL, WHY HE SHOULD NOT TOUCH THE PERMACATH AND WHAT IT WAS USED FOR. PT REMAINS CONFUSED BUT VOICED HIS UNDERSTANDING ABOUT NOT TOUCHING OR PULLING OUT THE PERMACATH. PT ASSISTED BACK TO BED. BED IN LOW POSITION WITH THE CALL LIGHT WITHIN EASY REACH. BED ALARM ACTIVATED. DRY DRESSING IN PLACE TO RUE WHERE POWERGLIDE INSERTION SITE WAS. HOSPITALIST WILL BE MADE AWARE OF EVENTS, WELL CHARGE NURSE. WILL CONTINUE TO MONITOR.
--- NOTE | 2021-03-17 06:50 | NUR ---
SHIFT SUMMARY ASSUMED CARE AT 1900. PT WAS CONFUSED, RESTLESS AND AGITATED. MEDICATED WITH SCHEDULED AND PRN MEDICATIONS ACCORDINGLY. PT HAD AN EPISODE OF DELIRIUM THIS MORNING WHERE HE PULLED OUT HIS RUE POWERGLIDE. CHARGE NURSE AND HOSPITALIST NOTIFIED. R CHEST PERMACATH IN PLACE. EMPHASIZED TO PT NOT TO TOUCH OR PULL OUT PERMACATH. PT HAD AN EPISODE OF ASYMPTOMATIC HYPOGLYCEMIA, GIVEN A SNACK AND BLOOD GLUCOSE IMPROVED TO 92 MG/DL. BED IS IN LOW POSITION WITH THE CALL LIGHT WITHIN EASY REACH. BED ALARM ACTIVATED. WILL CONTINUE TO MONITOR.
[2021-03-17 08:23] LABS: BASOPHILS ABSOLUTE AUTO 0.06 K/mm3 (0.00-0.23); BASOPHILS PERCENT AUTO 1 % (0-2); EOSINOPHILS ABSOLUTE AUTO 0.18 K/mm3 (0.00-0.68); EOSINOPHILS PERCENT AUTO 3 % (0-6); IMMATURE GRAN ABSOLUTE AUTO 0.02 K/mm3 (0.00-0.10); IMMATURE GRAN PERCENT AUTO 0 % (0-1); LYMPHOCYTES ABSOLUTE AUTO 1.25 K/mm3 (0.84-5.20); LYMPHOCYTES PERCENT AUTO 18 % (21-46); MONOCYTES ABSOLUTE AUTO 0.64 K/mm3 (0.16-1.47); MONOCYTES PERCENT AUTO 9 % (4-13); Mean Corpuscular HGB 31.2 pg (26.0-34.0); Mean Corpuscular HGB Conc 33.3 g/dL (31.5-36.5); Mean Corpuscular Volume 94 fL (80-100); Mean Platelet Volume 9.2 fL (9.1-12.4); NEUTROPHILS ABSOLUTE AUTO 4.73 K/mm3 (1.96-9.15); NEUTROPHILS PERCENT AUTO 69 % (41-73); Platelet Count 125 K/mm3 (150-400); RDW Coefficient Variation 11.8 % (11.7-14.2); RDW Standard Deviation 40.4 fL (35.1-46.3); Red Blood Cell Count 3.21 M/mm3 (4.30-5.90); White Blood Cell Count 6.88 K/mm3 (4.00-11.30)
[2021-03-17 09:05] LABS: Albumin, Blood 1.9 g/dL (3.4-5.0); Anion Gap 12 mmol/L (6-16); Blood Urea Nitrogen 45 mg/dL (8-24); Bun/Creatinine Ratio 6.7 (12.0-20.0); CO2, Blood 27 mmol/L (21-32); Calcium, Blood 7.7 mg/dL (8.5-10.1); Chloride, Blood 102 mmol/L (98-108); Creatinine, Blood 6.69 mg/dL (0.60-1.20); Glomerular Filtration Rate 8 (60-); Glucose, Blood 262 mg/dL (70-99); Magnesium, Blood 2.2 mg/dL (1.6-2.4); Phosphorus, Blood 3.4 mg/dL (2.5-4.9); Sodium, Blood 141 mmol/L (136-145)
--- NOTE | 2021-03-17 17:20 | NUR ---
DAY SHIFT SUMMARY PLEASANT, CONFUSED 70 YR OLD MALE. WAITING FOR PLACEMENT WITH OUTPATIENT DIALYSIS. PT ON RA. CBG HAS BEEN HIGH TODAY. DR JOSEPH OF [place] HAS BEEN NOTIFIED AND HAD ROUNDED ON PT TODAY. CHANGES ARE BEING MADE TO THE INSULIN COVERAGE ORDERES BY DR JOSEPH. PT WAS ABLE TO GET A SHOWER, VISITING TODAY DURING VISITING HOURS. PT HAS BEEN MORE CONFUSED TODAY THAN PREVIOUSLY SEEN ON THE DAY SHIFT. TALKING/MUMBLING TO SELF, PACKING BAGS TO LEAVE, TALKING ABOUT THINGS WITH THAT SHE STATES MAKE NO SENSE TO HER. CALL LIGHT IS WITHIN REACH OF PT AND HE DOES CALL APPROPRIATLY. PT CAN BE DIFFICULT TO REDIRECT BUT IS ABLE TO FOLLOW SIMPLE INSTRUCTIONS.
--- NOTE | 2021-03-18 06:24 | NUR ---
SHIFT SUMMARY ASSUMED CARE AT 1900. PT WITH PROGRESSIVELY INCREASING CONFUSION, AGITATION AND RESTLESS. VERY DIFFICULT TO REDIRECT, ON [place] VERY OF GETTING AGGRESSIVE WITH STAFF. BY THIS TIME PT ALREADY RECEIVED SCHEDULED MEDICATIONS AND PRN TRAZODONE. PT TOO AGITATED TO TAKE PRN SEROQUEL 50MG PO. HOSPITALIST WAS NOTIFIED, NEW ORDERS RECEIVED FOR RESTRAINTS AND PRN HALDOL IM. CONCERN FOR PT SAFTEY, STAFF SAFETY AND RISK FOR PT PULLING OUT RIGHT CHEST PERMACATH-LIKE HE DID THE RUE POWERGLIDE THE PREVIOUS NIGHT. PT FINALLY DID TAKE THE PRN SEROQUEL PO, THEREFORE DID NOT RECEIVE ANY PRN IM HALDOL. BED IS IN LOW POSITION WITH THE CALL LIGHT WITHIN EASY REACH.
--- NOTE | 2021-03-18 06:31 | NUR ---
CALL RECEIVED FROM ALIREZA BOWEN FROM CT DEPT STATING THAT RENAL BIOPSIES ARE NOT ROUTINELY DONE ON THE WEEKENDS AND WOULD BE DONE ON SATURDAY. DR. JAY NOTIFIED WHILE HE WAS ROUNDING, VERBALIZED HIS UNDERSTANDING.
--- NOTE | 2021-03-18 08:00 | NUR ---
pt sitting up in chair for breakfast, restraints were removed so he could eat, did not seem as aggitated as he was last night, he is definately confused, and talking to himself, picking at the air, but is redirectable, he was assisted back to bed after he ate as we will be taking him to dialysis, lungs are clear, dim in bases, on r/a, resp even and unlabored, no cough noted, hrr, edema noted to b/l le, ppp+1, cap refill <3sec, vs stable, afebrile, no iv site, btx4, abd round soft nontender, voids small amounts, skin c/w/d, maew, anselmo, call light in reach.
[2021-03-18 10:08] LABS: Hematocrit 25.6 % (37.0-53.0); Hemoglobin 8.6 g/dL (13.5-17.5); Mean Corpuscular HGB 31.3 pg (26.0-34.0); Mean Corpuscular HGB Conc 33.6 g/dL (31.5-36.5); Mean Corpuscular Volume 93 fL (80-100); Mean Platelet Volume 9.6 fL (9.1-12.4); Platelet Count 126 K/mm3 (150-400); RDW Coefficient Variation 11.6 % (11.7-14.2); RDW Standard Deviation 39.6 fL (35.1-46.3); Red Blood Cell Count 2.75 M/mm3 (4.30-5.90); White Blood Cell Count 5.79 K/mm3 (4.00-11.30)
[2021-03-18 10:24] LABS: Prothrombin Time Results 10.5 Sec (9.7-11.5)
[2021-03-18 10:29] LABS: BAND PERCENT MAN 1 % (0-8); BASOPHILS ABSOLUTE MAN 0.11 K/mm3 (0.00-0.23); BASOPHILS PERCENT MAN 2 % (0-2); EOSINOPHILS ABSOLUTE MAN 0.11 K/mm3 (0.00-0.68); EOSINOPHILS PERCENT MAN 2 % (0-6); LYMPHOCYTES ABSOLUTE MAN 0.92 K/mm3 (0.84-5.20); LYMPHOCYTES PERCENT MAN 16 % (21-46); MONOCYTES ABSOLUTE MAN 0.34 K/mm3 (0.16-1.47); MONOCYTES PERCENT MAN 6 % (4-13); NEUTROPHILS ABSOLUTE MAN 4.28 K/mm3 (1.96-9.15); SEG NEUTROPHILS PERCENT MAN 73 % (41-73); TOTAL CELLS COUNTED 100
[2021-03-18 10:36] LABS: Magnesium, Blood 2.3 mg/dL (1.6-2.4)
[2021-03-18 10:41] LABS: Albumin, Blood 1.7 g/dL (3.4-5.0); Anion Gap 10 mmol/L (6-16); Blood Urea Nitrogen 61 mg/dL (8-24); Bun/Creatinine Ratio 7.5 (12.0-20.0); CO2, Blood 28 mmol/L (21-32); Calcium, Blood 7.6 mg/dL (8.5-10.1); Chloride, Blood 100 mmol/L (98-108); Creatinine, Blood 8.17 mg/dL (0.60-1.20); Glomerular Filtration Rate 7 (60-); Glucose, Blood 404 mg/dL (70-99); Phosphorus, Blood 4.2 mg/dL (2.5-4.9); Potassium, Blood 3.9 mmol/L (3.5-5.5); Sodium, Blood 138 mmol/L (136-145)
--- NOTE | 2021-03-18 18:30 | NUR ---
pt had dialysis today, removed 600mls, he got a bit agitated this late afternoon, but was redirectable, his in to visit, Dr. Vann came to speak to her, ordered a ct of head, he is down having that done now, glucose was 82 at 1600 check, but spouce checked via phone, was in the 50's, got him a snack as it was 45 mins before dinner, she checked regularly and went to 42, then came back up, checked with out monitor after dinner, was at 82 again. no further changes this shift. call light remains in reach when in room.
--- NOTE | 2021-03-18 20:40 | NUR ---
PT OFF THE FLOOR FROM [phone] HEAD W/O CONTRAST DONE.
--- NOTE | 2021-03-19 05:54 | NUR ---
SHIFT SUMMARY ASSUMED CARE AT 1900. PT WAS CONFUSED SINCE THE SHIFT STARTED BUT WAS REDIRECTABLE AFTER SEVERAL MINUTES. PT PROGRESSIVELY BECAME MORE RESTLESS AND AGITATED. PT WAS PHYSICALLY AGGRESSIVE WITH ME, WAS VERBALLY ABUSIVE AND MADE THREATENED TO HIT ME WITH THE CALL LIGHT. SECURITY WAS CALLED FOR ASSISTANCE. HOSPITALIST WAS NOTIFIED AND RESTRAINT ORDERS RECEIVED. PT RECEIVED IM ZYREXA 10MG AT THAT TIME WELL. HE HAD ALREADY RECEIVED HIS SCHEDULED MEDICATIONS WELL A PRN DOSE OF SEROQUEL. PT REMAINED AGITATED AND RESTLESS; HE TRIED UNTYING THE CAPRI VEST WHEN IT WAS INITIALLY APPLIED SO HOSPITALIST WAS CALLED AGAIN FOR BILATERAL SOFT WRIST RESTRAINT ORDERS. PT REMAINED RESTLESS AND AGITATED FOR MAJORITY OF THE NIGHT, SOMEHOW GETTING OUT OF THE BILATERAL SOFT WRIST RESTRAINTS MULTIPLE TIMES. AT ABOUT 0200, PT APPEARED TO BE EXPERIENCING AUDITORY HALLUCINATIONS AND DELUSIONS. BY ABOUT 0400, PT HAD A FEW MOMENTS WHEN HE WAS QUIET AND WOULD FALL ASLEEP. AT 0500, PT APPEARED A BIT CALMER, ACCEPTED PO HYDRATION WHEN OFFERED AND TOOK HIS SYNTHROID. AT THIS TIME, THE PT IS BACK TO BEING RESTLESS AND AGITATED. BED IS IN LOW POSITION WITH THE CALL LIGHT WITHIN EASY REACH. BED ALARM IS ACTIVATED. WILL CONTINUE TO MONITOR.
--- NOTE | 2021-03-19 18:19 | NUR ---
SHIFT SUMMARY 70 Y MALE ADMITTED WITH HYPERKALEMIA AND NEED FOR HEMODIALYSIS. PT REMAINED VERY CONFUSED, RESTLESS AND AGGITATED MOST OF THE DAY. PT IN CAPRI VEST RESTRAINT AND SOFT WRIST RESTRAINTS FOR SAFETY. PT CONT TO GET OUT OF HIS WRIST RESTAINTS T/O THE DAY. IN FOR VISITING HOURS AND TRIALED PT OUT OF RESTRAINTS BUT AGREED THAT HE WAS TO UNPREDICTABLE AND CONFUSED AND VERY DIFFICULT TO DIRECT AND RESTRAINTS WERE REAPPLIED. PT MEDICATED PER EMAR FOR AGGITATION T/O DAY. RENAL BIOPSY SCHEDULED FOR TOMORROW. DR. TOURE INCREASED PT'S HS SEROQUEL DOSE. NO OTHER CHANGES THIS SHIFT.
[2021-03-20 04:57] LABS: Hematocrit 26.6 % (37.0-53.0); Hemoglobin 8.8 g/dL (13.5-17.5)
[2021-03-20 06:17] LABS: Albumin, Blood 1.7 g/dL (3.4-5.0); Anion Gap 9 mmol/L (6-16); Blood Urea Nitrogen 50 mg/dL (8-24); Bun/Creatinine Ratio 6.8 (12.0-20.0); CHOL/HDL RATIO 2.2; CO2, Blood 30 mmol/L (21-32); Calcium, Blood 7.7 mg/dL (8.5-10.1); Chloride, Blood 104 mmol/L (98-108); Cholesterol 177 mg/dL (50-200); Glomerular Filtration Rate 7 (60-); Glucose, Blood 128 mg/dL (70-99); HDL Cholesterol 80 mg/dL (>39); LDL/HDL RATIO 0.9; Low Density Lipoprotein Chol 72 mg/dL (0-110); Magnesium, Blood 2.2 mg/dL (1.6-2.4); Phosphorus, Blood 4.1 mg/dL (2.5-4.9); Potassium, Blood 3.8 mmol/L (3.5-5.5); Sodium, Blood 143 mmol/L (136-145); Triglycerides 124 mg/dL (30-160); Very Low Density Lipoprot Chol 24 mg/dL (6-32)
--- NOTE | 2021-03-20 08:22 | NUR ---
PT CONTINUED SAFE, SLIPPING WRISTS OUT. CATEGORY MANAGER PLACED CALL WITH NEW ORDERS OBTAINED
[2021-03-20 11:23] LABS: International Normalized Ratio 0.99; Prothrombin Time Results 10.4 Sec (9.7-11.5)
--- NOTE | 2021-03-20 16:52 | NUR ---
TRANSFER TO RM 347 PT TRANSFERED TO RM 347. REPORT GIVEN TO TAYLER WEST. PT @ BEDSIDE. PT CONFUSED, AGITATED, AND AGRESSIVE @ TIMES. TUFF CUFF, VEST, AND 4 GAURD RAILS UP @ TIME OF TRANSFER FOR PT SAFETY. NOEL IN PLACE AND DRAINING FERNANDO URINE TO GRAVITY. FEVER OF 101.0 MEDICATED PER EMAR. CALL LIGHT W/IN REACH IN NEW ROOM.
--- NOTE | 2021-03-20 18:22 | NUR ---
PT TRANSFERED FROM MAIN ISSA TO BACK ISSA, SAME FLOOR. REPORT TAKEN. PT CONFUSED AND IN RESTRAINTS UPON ARRIVAL. RESTRAINTS ASSESSED DINNER OFFERED, DRINK OFFERED, NOEL INTACT/PATENT AND DRAINING BY GRAVITY. PER REPORT DIALYSIS TX RECEIVED TODAY. RT CHEST PERMACATH INTACT. EDEMA TO BLE, KIDNEY BIOPSY SCHEDULED FOR TOMORROW, BLOOD THINNERS TO BE HELD PER MD ORDER. FREQUENT ROUNDING, D/T RESTRAINTS. AT BEDSIDE.
[2021-03-20 23:22] LABS: Source, Urine Foley catheter
[2021-03-20 23:24] LABS: Bilirubin, Urine Neg (Neg); Blood, Urine 5+ (Neg); Glucose Qualitative, Urine 4+ (Neg); Ketones, Urine 1+ (Neg); Leukocyte Esterase, Urine 1+ (Neg); Nitrite, Urine Neg (Neg); Protein, Urine 4+ (Neg); Urobilinogen, Urine NORM (Normal)
[2021-03-20 23:29] LABS: Appearance, Urine Clear (Clear); Color, Urine Amber (P-Yellow)
[2021-03-20 23:31] LABS: Amorphous Light (0-Heavy); Bacteria Few /hpf; Granular Casts 0-2 /lpf (0); Red Blood Cells, Urine TNTC /hpf (0-2); Squamous Epithelial Cells Not Seen /hpf (Few)
[2021-03-21 05:20] LABS: BASOPHILS ABSOLUTE AUTO 0.07 K/mm3 (0.00-0.23); BASOPHILS PERCENT AUTO 1 % (0-2); EOSINOPHILS ABSOLUTE AUTO 0.18 K/mm3 (0.00-0.68); EOSINOPHILS PERCENT AUTO 3 % (0-6); Hemoglobin 8.8 g/dL (13.5-17.5); IMMATURE GRAN ABSOLUTE AUTO 0.02 K/mm3 (0.00-0.10); IMMATURE GRAN PERCENT AUTO 0 % (0-1); LYMPHOCYTES ABSOLUTE AUTO 1.22 K/mm3 (0.84-5.20); LYMPHOCYTES PERCENT AUTO 20 % (21-46); MONOCYTES ABSOLUTE AUTO 0.73 K/mm3 (0.16-1.47); MONOCYTES PERCENT AUTO 12 % (4-13); Mean Corpuscular HGB 30.8 pg (26.0-34.0); Mean Corpuscular HGB Conc 32.6 g/dL (31.5-36.5); Mean Corpuscular Volume 94 fL (80-100); Mean Platelet Volume 9.5 fL (9.1-12.4); NEUTROPHILS ABSOLUTE AUTO 3.93 K/mm3 (1.96-9.15); NEUTROPHILS PERCENT AUTO 64 % (41-73); Platelet Count 146 K/mm3 (150-400); RDW Coefficient Variation 11.8 % (11.7-14.2); RDW Standard Deviation 40.3 fL (35.1-46.3); Red Blood Cell Count 2.86 M/mm3 (4.30-5.90); White Blood Cell Count 6.15 K/mm3 (4.00-11.30)
[2021-03-21 05:36] LABS: Albumin, Blood 1.6 g/dL (3.4-5.0); Anion Gap 5 mmol/L (6-16); Blood Urea Nitrogen 37 mg/dL (8-24); Bun/Creatinine Ratio 5.9 (12.0-20.0); CO2, Blood 33 mmol/L (21-32); Calcium, Blood 7.7 mg/dL (8.5-10.1); Chloride, Blood 105 mmol/L (98-108); Creatinine, Blood 6.31 mg/dL (0.60-1.20); Glomerular Filtration Rate 9 (60-); Glucose, Blood 69 mg/dL (70-99); Magnesium, Blood 2.1 mg/dL (1.6-2.4); Phosphorus, Blood 3.4 mg/dL (2.5-4.9); Potassium, Blood 3.4 mmol/L (3.5-5.5); Sodium, Blood 143 mmol/L (136-145)
--- NOTE | 2021-03-21 05:47 | NUR ---
SHIFT SUMMARY: THE PT IS A/O XSELF. HIS SPEECH IS UNINTELLIGIBLE; HE DOES FOLLOW SOME BASIC COMMANDS. A UA WAS SENT TO LAB DURING NOC SHIFT. TUFF CUFF/CAPRI REMAIN IN PLACE. NEW ORDER NEEDS TO BE PUT IN BY 2104. NOEL CATH IS PATENT, BUT HE DOES HAVE SOME HEMATURIA. BED IS IN LOWEST POSITION AND ALARM IS SET.
--- NOTE | 2021-03-21 14:09 | NUR ---
PT ADMITTED TO ICU AT 1317 FROM MED FLOOR FOR AMS. PT ARRIVED IN 4 PT TOUGH CUFFS. PT PULLING HARD ON ALL 4 RESTRAINTS, PT DOES NOT OPEN EYES OR FOLLOW COMMANDS. PT ON NRB MASK AT 10L, RESP LABORED, PT DIAPHORETIC. PRECEDEX STARTED AT 0.2MCG. CPAP AT BEDSIDE PLACED. WITHIN 30MIN OF ADMITM, PT CALM AND SLEEPING. RESP EVEN AND UNLABORED. VSS. DR MEYER STOPPED BY TO CHECK ON PT, CRITICAL CARE CONSULT TO BE DC'D. RT NOTIFIED THAT BIPAP ORDERED, PT STABLE AT THIS TIME.
--- NOTE | 2021-03-21 14:35 | NUR ---
PT BECAME INCREASINGLY MORE AGITATED MORNING WENT ON. BEGAN TO BREATHE IRREGULARLY/IRRATICALLY. CALLED CHARGE NURSE IN TO CONSULT. PT THRASHING AROUND IN BED. TOUGH CUFFS ON WRIST, 4 RAILS UP, CAPRI VEST ON. PT KICKING LEGS OUT, SWEATING, WHEEZING, HEAVY BREATHING. UNABLE TO GET VITALS DUE TO THRASHING, ALSO UNABLE TO GET MANUAL PULSE COUNT. DR MEYER CONTACTED, SHE STATED SHE WAS UNABLE TO COME IN TO SEE PT AT THE MOMENT SHE WAS IN CLINIC. DR VALENZUELA WAS BROUGHT IN TO SEE PT. 2 MG IM ATIVAN GIVEN PER DR ORDER AT BEDSIDE. ONCE PT BEGAN TO CALM SOME, AN IV WAS ABLE TO BE PLACED. 5 MG DIAZAPAM GIVEN THROUGH IV LINE PER MD ORDER AT BEDSIDE. PT AT THIS TIME HAD AN ELEVATED TEMP. PT TRANSFERED TO ICU VIA BED ALONG WITH PERSONAL BELONGINGS. DR MEYER ABLE TO COME SEE PT AT BEDSIDE AND OKAYED ORDER TO TRANSFER PT TO ICU. REPORT GIVEN VIA PHONE PRIOR TO TRANSFER. PT'S CALLED AND NOTIFIED OF TRANSFER.
--- NOTE | 2021-03-21 18:22 | NUR ---
PRECEDEX REMAINS AT 0.2MCG. PT HAS SLEPT CALMLY SINCE ADMIT TO ICU. MRI ORDERED FOR TOMORROW, PT MAY BE ABLE TO TOLERATE TEST WITH PRECEDEX. PT'S SON IN TO VISIT TODAY, GIVEN FULL UPDATE. VS REMAIN STABLE.
[2021-03-22 03:29] LABS: BASOPHILS ABSOLUTE AUTO 0.05 K/mm3 (0.00-0.23); BASOPHILS PERCENT AUTO 1 % (0-2); EOSINOPHILS ABSOLUTE AUTO 0.18 K/mm3 (0.00-0.68); EOSINOPHILS PERCENT AUTO 2 % (0-6); Hematocrit 25.8 % (37.0-53.0); Hemoglobin 8.5 g/dL (13.5-17.5); IMMATURE GRAN ABSOLUTE AUTO 0.02 K/mm3 (0.00-0.10); IMMATURE GRAN PERCENT AUTO 0 % (0-1); LYMPHOCYTES ABSOLUTE AUTO 1.23 K/mm3 (0.84-5.20); LYMPHOCYTES PERCENT AUTO 17 % (21-46); MONOCYTES ABSOLUTE AUTO 0.56 K/mm3 (0.16-1.47); MONOCYTES PERCENT AUTO 8 % (4-13); Mean Corpuscular HGB 31.5 pg (26.0-34.0); Mean Corpuscular HGB Conc 32.9 g/dL (31.5-36.5); Mean Corpuscular Volume 96 fL (80-100); Mean Platelet Volume 9.8 fL (9.1-12.4); NEUTROPHILS ABSOLUTE AUTO 5.42 K/mm3 (1.96-9.15); NEUTROPHILS PERCENT AUTO 73 % (41-73); Platelet Count 137 K/mm3 (150-400); RDW Coefficient Variation 11.9 % (11.7-14.2); RDW Standard Deviation 41.2 fL (35.1-46.3); White Blood Cell Count 7.46 K/mm3 (4.00-11.30)
[2021-03-22 03:57] LABS: Albumin, Blood 1.4 g/dL (3.4-5.0); Albumin/Globulin Ratio 0.5 (0.8-1.8); Bilirubin, Total 0.2 mg/dL (0.1-1.0); Bun/Creatinine Ratio 6.3 (12.0-20.0); C-REACTIVE PROTEIN, EXT RANGE 3.55 mg/dL (0.000-0.300); Calcium, Blood 7.6 mg/dL (8.5-10.1); Creatinine, Blood 7.33 mg/dL (0.60-1.20); Free Thyroxine 0.77 ng/dL (0.70-1.60); Globulin, Blood 2.9 g/dL (2.2-4.0); Magnesium, Blood 2.3 mg/dL (1.6-2.4); Potassium, Blood 4.1 mmol/L (3.5-5.5); Thyroid Stimulating Hormone 4.29 uIU/mL (0.360-4.800); Total Protein, Blood 4.3 g/dL (6.4-8.2); Triiodothyronine, Free 0.77 pg/mL (2.18-3.98)
--- NOTE | 2021-03-22 06:47 | NUR ---
PT RESTED QUIETLY THROUGHOUT SHIFT WHEN UNDISTURBED, WAKENS SUDDENLY WITH CARE AND PULLS HARD AGAINST BILAT WRIST RESTRAINTS. UNDERSTANDABLE WORDS ARE NOTED THIS AM, PT DOES NOT REMEMBER THAT HE IS IN THE HOSPITAL AND ASKS WHY WITH 0600 REPOSITIONING. PRECEDEX WAS INCREASED TO 0.4 MCG/KG/HR FOR A DURATION THIS SHIFT, SEE ICU FLOWSHEET, HAS BEEN DECREASED TO 0.2 MCG/KG/HR WITHOUT NOTEABLE CHANGES IN SEDATION OR MENTATION. CONTINUES BRADYCARDIC THROUGHOUT SHIFT WHEN RESTING, INCREASES TO 60-80S WHEN AWAKE AND PULLING AGAINST RESTRAINTS. PRESSURES MAINTAIN STABLE THROUGHOUT SHIFT. ATTEMPTED TO CHANGE MONITOR ELECTRODES AND REPOSITION, RELEARN RESPIRATIONS, INCREASE SENSITIVITY, MONITOR CONTINUES TO READ APNEA THROUGHOUT NOC HOWEVER MANUAL RESPIRATION COUNTS ARE MID TEENS TO 20, SATS MAINTAIN HIGH 90S WITH CPAP AND ROOM AIR. NOEL OUTPUT OF 100 ML THIS SHIFT.
--- NOTE | 2021-03-22 12:53 | NUR ---
1005 TO RENAL BIOPSY, BACK TO ROOM AT 1055, DIALYSIS WITHOUT HEPARIN OKAYED BY DR ESCALONA AND DR JAY, PATIENT STILL TO HAVE A MRI TODAY, CHECKLIST FAXED. SB PRECIDEX DUE TO HEART RATE 38-58, STILL HAVING DIALYSIS TODAY. HEART RATE AT 55 NOW, WCTM
--- NOTE | 2021-03-22 14:07 | NUR ---
patient back from renal ct, no bleeding from biopsy site, to still go down for MRI
[2021-03-22 14:18] LABS: Vancomycin, Random 7.2 ug/mL
--- NOTE | 2021-03-22 15:54 | NUR ---
PATIENT INCREASING AGITATION STRAINING AGAINST RESTRAINTS, PULLED STAT LOOK FOR NOEL OFF, MUMBLING "IM GONNA KICK YOUR ASS", UNABLE TO RE-ORIENT, PRECIDEX INFUSING, YONNYO INFUSIONG, NS TKO, WCTM
--- NOTE | 2021-03-22 18:36 | NUR ---
PATIENT CONFUSED, AGITATED, UNABLE TO RE-ORIENTED, "I WANT TO GET THE FUCK OUT OF HERE, I WILL KICK YOUR ASS" PATIENT EDUCATED NOT TO TALK TO STAFF THIS WAY, PATIENT VISUALLY HALLUCINATING- GRABBING AT AIR, BASELINE DEMETIA, RESP 8-22, HEART RATE 38, STOPPED PRECIDEX, PAITENTS AGITATION INCREASED HEART RATE INCREASED TO 90, RESTARTED PRECIDEX AT 0.3, HEART RATE NOW 86, SBP WNL 100-160, NOEL TO GRAVITY, REFUSED TO EAT, SWALLOW WATER, OR ORAL CARE, LAST DOCUMENTED BM WAS ON 03/14/2021, UPDATED TRISH, PATIENT HAD A RENAL BIOPSY TODAY, DIALYSIS 1000 OFF, HEAD MRI, NO CONTRAST CREATINE 7.33. HOME CPAP AT BEDSIDE- PATIENT USES MAJORITY OF THE DAY AND NIGHT. WILL RELAY TO PM RNRAMIREZ
--- NOTE | 2021-03-22 23:43 | NUR ---
SHIFT START PT WITH HTN 170'S UP 180 SBP, MEDICATED WITH IV HYDRALZINE TO EFFECT, BP BEGINNING TO TREND UPWARD AGAIN HOWEVER. PT PRESENTS MEUMBLING INCOHERENTLY WITH STAFF AND NOT REALLY FOLLOWING DIRECTION. ON PRECEDEX 0.3,THIS HAS BEEN TITRATED SLOWLY UP TO 0.7 PT HAS BECOME INCREASINGLY AGITATED. TUFF CUFFS REMAIN IN PLACE. HR STABLE WITH PRECEDEX GTT. PT HAS HAD 1 VERY LARGE BM. ORAL CARE PROVIDED. PT CONTINUES TO WEAR HOME CPAP. BED ALARM ON.
[2021-03-23 03:36] LABS: Albumin, Blood 1.2 g/dL (3.4-5.0); Anion Gap 9 mmol/L (6-16); Blood Urea Nitrogen 37 mg/dL (8-24); Bun/Creatinine Ratio 6.1 (12.0-20.0); CO2, Blood 28 mmol/L (21-32); Calcium, Blood 7.5 mg/dL (8.5-10.1); Chloride, Blood 106 mmol/L (98-108); Creatinine, Blood 6.03 mg/dL (0.60-1.20); Glomerular Filtration Rate 9 (60-); Glucose, Blood 201 mg/dL (70-99); Magnesium, Blood 2.2 mg/dL (1.6-2.4); Phosphorus, Blood 4.6 mg/dL (2.5-4.9); Potassium, Blood 4.2 mmol/L (3.5-5.5); Sodium, Blood 143 mmol/L (136-145)
[2021-03-23 04:06] LABS: Hematocrit 28.7 % (37.0-53.0); Hemoglobin 9.6 g/dL (13.5-17.5)
--- NOTE | 2021-03-23 05:15 | NUR ---
END OF SHIFT PT MENTATION LESS AGITATED BUT HAS HAD SOME YELLING/CUSSING AT STAFF WELL PULLING AT RESTRAINTS. TITRATING PRECEDEX TO ACHEIVE THIS WHILE MAINTAINING HR >50. CPAP REMAINS UNCHANGED. PT REMAINS IN BILAT WRIST TATS. HTN HAS DECREASED AND IS WNL FOR THE TIME BEING. OTHEWISE, PT REMAINS NPO, PRESENTS AN ASPIRATION RISK CURRENTLY. NOEL PATENT AND SECURE. OTHERWISE, BED ALARM IN PLACE, BED IN LOW POSITION.
[2021-03-23 07:38] LABS: BASOPHILS ABSOLUTE AUTO 0.06 K/mm3 (0.00-0.23); BASOPHILS PERCENT AUTO 1 % (0-2); EOSINOPHILS PERCENT AUTO 1 % (0-6); Hematocrit 28.7 % (37.0-53.0); Hemoglobin 9.5 g/dL (13.5-17.5); IMMATURE GRAN ABSOLUTE AUTO 0.02 K/mm3 (0.00-0.10); IMMATURE GRAN PERCENT AUTO 0 % (0-1); LYMPHOCYTES ABSOLUTE AUTO 0.86 K/mm3 (0.84-5.20); LYMPHOCYTES PERCENT AUTO 12 % (21-46); MONOCYTES ABSOLUTE AUTO 0.66 K/mm3 (0.16-1.47); MONOCYTES PERCENT AUTO 9 % (4-13); Mean Corpuscular HGB 31.7 pg (26.0-34.0); Mean Corpuscular HGB Conc 33.1 g/dL (31.5-36.5); Mean Corpuscular Volume 96 fL (80-100); NEUTROPHILS ABSOLUTE AUTO 5.52 K/mm3 (1.96-9.15); NEUTROPHILS PERCENT AUTO 77 % (41-73); Platelet Count 166 K/mm3 (150-400); RDW Coefficient Variation 11.9 % (11.7-14.2); RDW Standard Deviation 41.5 fL (35.1-46.3); White Blood Cell Count 7.22 K/mm3 (4.00-11.30)
[2021-03-23 07:48] LABS: Albumin, Blood 1.3 g/dL (3.4-5.0); Anion Gap 7 mmol/L (6-16); Blood Urea Nitrogen 39 mg/dL (8-24); Bun/Creatinine Ratio 6.4 (12.0-20.0); CO2, Blood 30 mmol/L (21-32); Calcium, Blood 8.1 mg/dL (8.5-10.1); Chloride, Blood 106 mmol/L (98-108); Creatinine, Blood 6.09 mg/dL (0.60-1.20); Glomerular Filtration Rate 9 (60-); Glucose, Blood 203 mg/dL (70-99); Phosphorus, Blood 4.8 mg/dL (2.5-4.9); Potassium, Blood 4.4 mmol/L (3.5-5.5); Sodium, Blood 143 mmol/L (136-145)
--- NOTE | 2021-03-23 08:54 | NUR ---
DR JAY AND DR ESCALONA ROUNDED, PATIENT HAS CONTINUED TO BE AGITATED, SWEARING AND UNDIRECTABLE, UNABLE TO RE-ORIENT, PRECIDEX GTT INFUSING,HEART RATE 80, NO DIALYSIS TODAY, REPORTED AGITATION TO DR ESCALONA, NO NEW ORDERS YET, RESTRAINTS LOCKED
--- NOTE | 2021-03-23 11:27 | NUR ---
REPORTED TO DR ESCALONA AT 1027 THE EEG WILL BE HINDERED ORCAN HIDE THINGS WITH ATIVAN GIVEN TO THE PATIENT, PATIENT ALREADY RECIEVED A DOSE OF ATIVAN, DR ESCALONA SAID TO PROCEED WITH THE EEG AND USE MORE ATIVAN IF NEEDED BUT TRY TO STAY WITH JUST THE PRECEDEX. KENNEL STAFF MEMBER IN ROOM NOW ATTACHING LEADS, PRECEDEX AT 0.4. SPEECH ORDERED DUE TO PATIENT FAILING BEDSIDE SWALLOW, HELD PO MEDICATIONS, CLARIFIED LOVENOX WITH DR ESCALONA, ADMINISTERED TO PATIENT. [facility]
--- NOTE | 2021-03-23 13:10 | NUR ---
EEG DONE, PATIENT HELD STILL FOR ATLEAST HALF OF THE EEG, RESTING NOW, NO DISTRESS, NO THRASHING OR PULLING AT RESTRAINT LINES TM
--- NOTE | 2021-03-23 15:19 | NUR ---
lori dallas at bedside
--- NOTE | 2021-03-23 15:50 | NUR ---
SPEECH AT BEDSIDE WITH PATIENT AND , PATIENT FAILED SWALLOW EVAL
--- NOTE | 2021-03-23 18:20 | NUR ---
PATIENT NON COOPERATIVE, YELLING, CRYING OUT FOR HELP, UNABLE TO RE-ORIENT, UNABLE TO CLEARLY MAKE NEEDS KNOWN, HALF OF SPEECH IS CLEAR BUT THEN BECOMES VERY MUMBLED. HOME CPAP ON, APNEA 8-20, LINETTE CARDIA 44, WAKES STARTLED PULLING AT RESTRAINTS AND CUSSING, CSM CHECKED, RESTRAINTS MOVED ON ARM, SBP WNL 90-120S, OUTPUT 80 ML, SKIN INTACT AND DRY. NO DIAYSIS TODAY, EEG DONE TODAY, WAITING FOR RESULTS FROM EEG AND RENAL BIOPSY. NPO, FAILED BEDSIDE SWALLOW EVAL, ST EVALUATED AND WILL RE-EVAL TOMORROW. WILL RELAY TO PM RN, PRECEDEX INFUSING 0.6 MCG, WCTM
--- NOTE | 2021-03-23 19:45 | NUR ---
ASSESSMENT/ASSUMED CARE PT RESTING QUIETLY. MUMBLES TO VERBAL STIMULI, BUT NOT FOLLOWING INSTRUCTIONS. RESTING QUIETLY WHEN UNDISTURBED. LUNGS CLEAR BUT DECREASED WITH HOME CPAP ON. HEART RATE WHILE SLEEPING 50-60'S BUT UP TO 80'S WITH STIMULI. BP STABLE. GENERAL EDEMA NOTED TO BILAT ARMS AND TRUNK. BT+HYPOACTIVE. ABD SOFT AND NONTENDER. PT NPO DUE TO DECREASED LOC. IV RIGHT WRIST SALINE LOCKED. SITE CLEAR, FLUSHED WITHOUT DIFFICULTY. IV LEFT FOREARM WITH NS AT 10 ML/HR AND PRECEDEX AT 0.6 MCQ/KG/HR. SITE CLEAR, ABLE TO DRAW BLOOD AND FLUSH WITHOUT DIFFICULTY. NOEL CATH PATENT DRAINING YELLOW URINE. HD CATH TO RIGHT CHEST WALL, DRSG INTACT AND SITE CLEAR. PORTS CLAMPED AND WRAPPED WITH COBAN. BILAT TAT RESTRAINTS ON DUE TO PT STRENGTH. SKIN INTACT.
[2021-03-24 03:40] LABS: Hematocrit 27.1 % (37.0-53.0); Hemoglobin 9.1 g/dL (13.5-17.5)
[2021-03-24 03:48] LABS: Albumin, Blood 1.3 g/dL (3.4-5.0); Anion Gap 10 mmol/L (6-16); Blood Urea Nitrogen 46 mg/dL (8-24); Bun/Creatinine Ratio 6.5 (12.0-20.0); CO2, Blood 28 mmol/L (21-32); Calcium, Blood 7.3 mg/dL (8.5-10.1); Chloride, Blood 108 mmol/L (98-108); Creatinine, Blood 7.05 mg/dL (0.60-1.20); Glomerular Filtration Rate 8 (60-); Glucose, Blood 138 mg/dL (70-99); Magnesium, Blood 2.2 mg/dL (1.6-2.4); Phosphorus, Blood 4.6 mg/dL (2.5-4.9); Potassium, Blood 3.8 mmol/L (3.5-5.5); Sodium, Blood 146 mmol/L (136-145)
--- NOTE | 2021-03-24 06:09 | NUR ---
SHIFT SUMMARY PT RESTING QUIELTY AT THIS TIME. YELLS OUT AND PULLS AGAINST RESTRAINTS WITH KD CARE. NOT FOLLOWING INSTRUCTIONS. PT MOVING AND TURNING SELF IN BED WITH BILAT TAT RESTRAINTS ON. REMOVED RESTRAINTS SEVERAL TIMES DURING THE NIGHT TO CHECK SKIN AND MOVE EXT. PT RESISANT TO MOVING OF EXT AND CARE. CONT ON HOME CPAP DURING THE NIGHT. HEART RATE CONT IN THE 50-60'S WHEN UNDISTURBED WITH STABLE BP'S. ELEVATED BP WITH CARE. NOEL CATH PATENT DRAINING SMALL AMT OF URINE, 62 ML FOR THE NIGHT. POSSIBLE DIALYSIS TODAY. CONT PRECEDEX AT 0.6 MCQ/KG/HR AND NS AT 10 ML/HR. REPORT TO ON COMING NURSE
--- NOTE | 2021-03-24 13:44 | NUR ---
ASSUMED CARE OF PT IN THE AM. PT CALM AND RESTING COMFORTABLE. PT IN UL RESTRAINTS AND TOLL WELL.. VITAL WNL AND PT IN NO DISTRESS. CPAP REMOVED IN AM, PT IN NO DISTRESS AND SATS REMAIN NORMAL ON RA. WILL CONTINUE TO MONITOR. SPEECH AND DIATARY BY TO SEE PT. CONCERNS FOR LONG NPO STATUS AND INABILITY TO FEED OR MEDICATE PT. WILL CONSULT DR HOSKINS ON HOW TO PROCEED.
[2021-03-24 17:52] LABS: Vancomycin, Trough 14.3 ug/mL (5.0-10.0)
--- NOTE | 2021-03-24 19:15 | NUR ---
ASSUMPTION OF CARE PT REMAINS ON PRECEDEX 0.7MCG/KG/HR AND NS TKO. PT ON RA. PT OPENS EYES SPONTANEOUSLY AND LOOKS AROUND ROOM BUT DOES NOT FOLLOW ANY COMMANDS. PT FIGITS IN BED, LIGHTLY PULLS AGAINST RESTAINTS, MUMBLING TO SELF. PT OCCASIONALLY REPLIES "YES MA'AM" TO QUESTIONS BUT DOES NOT FIT CONVERSATION AND DOES NOT FOLLOW ANY COMMANDS AT THIS TIME. HR 90S-100S, SBP 120S. SEE SHIFT ASSESSMENT.
[2021-03-24 20:06] LABS: THYROGLOBULIN ANTIBODY <1.0 IU/mL (0.0-0.9); THYROID PEROXIDASE (TPO) AB 13 IU/mL (0-34)
[2021-03-25 03:37] LABS: Hematocrit 28.7 % (37.0-53.0); Hemoglobin 9.3 g/dL (13.5-17.5)
[2021-03-25 04:02] LABS: Albumin, Blood 1.4 g/dL (3.4-5.0); Anion Gap 13 mmol/L (6-16); Blood Urea Nitrogen 37 mg/dL (8-24); Bun/Creatinine Ratio 5.9 (12.0-20.0); CO2, Blood 23 mmol/L (21-32); Calcium, Blood 7.5 mg/dL (8.5-10.1); Chloride, Blood 108 mmol/L (98-108); Creatinine, Blood 6.31 mg/dL (0.60-1.20); Glomerular Filtration Rate 9 (60-); Glucose, Blood 228 mg/dL (70-99); Magnesium, Blood 2.3 mg/dL (1.6-2.4); Potassium, Blood 4.3 mmol/L (3.5-5.5); Sodium, Blood 144 mmol/L (136-145)
--- NOTE | 2021-03-25 05:23 | NUR ---
SHIFT SUMMARY PT CONTINUES TO RECEIVE PRECEDEX. TITRATED DOWN TO 0.4MCG/KG/HR. PT REMAINS ON RA WITH SPO2 >95%. PT SLEPT THROUGH MOST OF NIGHT. DURING CARE, PT WAKENS AND LIGHTLY PULLS AGAINST TAT WRIST RESTRAINTS. PT DOES NOT MAKE EYE CONTACT, DOES NOT FOLLOW ANY COMMANDS. MOSTLY COMPLIANT WITH CARE, NO AGGRESSIVE BEHAVIOR. PT NO LONGER MUMBLING TO SELF, ONLY SPEAKS MOSTLY INCOMPREHENSIBLE SHORT PHRASES DURING CARE THEN FALLS ASLEEP. HR FLUCTUATING BETWEEN 40S-80S. SBP 90S-120S. DR JAY ROUNDED ON PT, UPDATED ON AM LAB VALUES. NO ADDITIONAL ORDERS AT THIS TIME.
[2021-03-25 12:29] LABS: Vancomycin, Random 22.3 ug/mL
--- NOTE | 2021-03-25 19:30 | NUR ---
ASSUMPTION OF CARE PT RECEIVING PRECEDEX 0.6MCG/KG/HR. PT CURRENTLY SLEEPING, AROUSABLE DURING CARE BUT DOES NOT FOLLOW ANY COMMANDS AND QUICKLY GOES BACK TO SLEEP. PT REMAINS IN TAT BILAT WRIST RESTRAINTS. NOEL IN PLACE DRAINING SMALL AMOUNT OF FERNANDO URINE. SEE SHIFT ASSESSMENT.
[2021-03-26 02:56] LABS: Hematocrit 31.3 % (37.0-53.0)
[2021-03-26 03:12] LABS: Albumin, Blood 1.6 g/dL (3.4-5.0); Anion Gap 15 mmol/L (6-16); Blood Urea Nitrogen 45 mg/dL (8-24); CO2, Blood 22 mmol/L (21-32); Calcium, Blood 7.9 mg/dL (8.5-10.1); Chloride, Blood 108 mmol/L (98-108); Creatinine, Blood 7.56 mg/dL (0.60-1.20); Glomerular Filtration Rate 7 (60-); Glucose, Blood 250 mg/dL (70-99); Magnesium, Blood 2.3 mg/dL (1.6-2.4); Phosphorus, Blood 4.9 mg/dL (2.5-4.9); Potassium, Blood 4.1 mmol/L (3.5-5.5); Sodium, Blood 145 mmol/L (136-145)
--- NOTE | 2021-03-26 05:55 | NUR ---
SHIFT SUMMARY RECEIVING PRECEDEX 0.2MCG/KG/HR AND NS TKO. PRECEDEX HAS BEEN TITRATED DOWN FROM 0.6MCG/KG/HR THROUGHOUT SHIFT. PT HAS BECOME MORE AWAKE THROUGHOUT SHIFT. PT NOW MAKES EYE CONTACT AND ANSWERS SOME QUESTIONS. PT IS ABLE TO STATE HIS FIRST NAME. WHEN ASKED IF PT HAS PAIN HE STS "MAYBE". SMALL AMOUNTS OF TALKING TO SELF, CONVERSATIONS OFTEN DO NOT MAKE SENSE. HR 80S-90S, SBP 150S-170S. PT REMAINS ON RA WITH SPO2 >96%. NOEL REMAINS IN PLACE DRAINING SMALL AMOUNTS OF FERNANDO URINE. IRRIGATED DURING THIS SHIFT TO ENSURE PATENCY. WILL REPORT TO ONCOMING RN.
[2021-03-26 07:25] LABS: BASOPHILS ABSOLUTE AUTO 0.05 K/mm3 (0.00-0.23); BASOPHILS PERCENT AUTO 1 % (0-2); EOSINOPHILS ABSOLUTE AUTO 0.15 K/mm3 (0.00-0.68); EOSINOPHILS PERCENT AUTO 2 % (0-6); Hematocrit 31.7 % (37.0-53.0); Hemoglobin 9.9 g/dL (13.5-17.5); IMMATURE GRAN ABSOLUTE AUTO 0.02 K/mm3 (0.00-0.10); IMMATURE GRAN PERCENT AUTO 0 % (0-1); LYMPHOCYTES ABSOLUTE AUTO 1.32 K/mm3 (0.84-5.20); LYMPHOCYTES PERCENT AUTO 15 % (21-46); MONOCYTES ABSOLUTE AUTO 0.81 K/mm3 (0.16-1.47); MONOCYTES PERCENT AUTO 9 % (4-13); Mean Corpuscular HGB 30.7 pg (26.0-34.0); Mean Corpuscular HGB Conc 31.2 g/dL (31.5-36.5); Mean Corpuscular Volume 98 fL (80-100); Mean Platelet Volume 11.3 fL (9.1-12.4); NEUTROPHILS ABSOLUTE AUTO 6.23 K/mm3 (1.96-9.15); NEUTROPHILS PERCENT AUTO 73 % (41-73); Platelet Count 206 K/mm3 (150-400); RDW Coefficient Variation 12.3 % (11.7-14.2); RDW Standard Deviation 44.5 fL (35.1-46.3); Red Blood Cell Count 3.22 M/mm3 (4.30-5.90); White Blood Cell Count 8.58 K/mm3 (4.00-11.30)
--- NOTE | 2021-03-26 11:43 | NUR ---
0700: SBAR from [facility]. Precedex at 0.2mcg/kg/hr w/ 103kg. Bed in low/locked position, emergency equipment at bedside and functional. Pt demonstrates restless leg movements with intermittent grimacing and garbled words. 0800: Discussed pt situation with Dr. Hunt. Recommended consideration for longer-acting PO medication to control pain/agitation. Requested consideration for DHT feeding and relayed Dr. Nieves's recommendation to review infectious disease risk factors. Requested review of flonase & lidocaine patch for potential D/C. 0900: Dialysis started. Pt tolerating well. Even hour q2hr repositioning with full passive ROM for upper extremeties that are restrained. Pt tolerating well. 1000: Pt appears to have less grimacing and demonstrates less restless movement. Sleeping. Tolerating dialysis. 1100: Approximately 1.6L removed via dialysis, pt tolerated well. Pt sleeping. Reqeusted Dr. Hunt change colace to form compatible with DHT; additional request to consider DHT feeds order. Promoting patient rest at this time, Dr. Hunt aware that precedex will be weaned further later this afternoon. Pt appears somewhat calmer with words more distinguishable; makes independent position changes in bed despite q2hr turning using pillows.
--- NOTE | 2021-03-26 14:34 | NUR ---
1430: PT HAS BEEN MUCH MORE ACTIVE X 1-2 HRS, WITH FREQUENT POSITION CHANGES REQUIRING SIGNIFICANT RN INTERVENTION FOR REDIRECTION. ACTIVE ROM APPLIED FOR EXTREMETIES AND PT COMFORT PROMOTED. SPOUSE OF PT AT BEDSIDE. 30MIN OF COURSE OF ILLNESS DISCUSSION PROVIDED, ANSWERED HER QUESTIONS AT THIS TIME. PER DISCUSSION W/ DR. HOSKINS, SCHEDULED HYDRALAZINE WAS DISCONTINUED DUE TO ADDITION OF AMLODIPINE THIS AM AND STABLE BP.
--- NOTE | 2021-03-26 16:27 | NUR ---
SHIFT SUMMARY NEURO: PT SLEPT APPROXIMATELY 6 HOURS. MUCH MORE AWAKE AFTERWARDS. NO COHERENT COMMUNICATION OR FOLLOWING COMMANDS, OCCASIONAL WORD STATED. OPENING EYES. CPOT USED TO MONITOR FOR PAIN AND OPTIMIZE PAIN CONTROL. AFTERNOON REQUIRED FREQUENT REDIRECTION AND MITIGATION FOR RISK OF PULLING AT LINES/TUBES/ATTEMPTING TO GET OUT OF BED. INCREASED PAIN CONTROL TO Q4HR PRN HYDROCODONE/APAP, NEXT DOSE AT APPROX 1999. CARDIAC: SR NO ECTOPY NOTED DURING SHIFT. ADDED AMLODIPINE, D/C'D SCHEDULED HYDRALAZINE. PRN HYDRALAZINE REMAINS FOR BREAKTHROUGH HTN. SEVERE EDEMA PERSISTENT TO ALL EXTREMETIES. ATTEMPTED IV X 2 W/O SUCCESS; ABORTED [address] MIDLINE DUE TO EXCESSIVE PATIENT MOVEMENT AND AGITATION. RESP: CONTINUES ON RA, SPO2 >96% THROUGHOUT SHIFT. WILL USE CPAP AT NIGHT IF TOLERATING. INTERMITTENT NONPRODUCTIVE COUGH CONTINUES. GI: STARTED TUBE FEEDS. MAY INCREASE 10ML/HR EVERY 8 HRS, NEXT CHANGE IS 1999 TODAY TO 40ML. GOAL IS 50ML/HR WITH [id number] FLUSHES. : OLIGURIC, UOP 140ML. DIALYZED 1.6L REMOVAL TODAY, PT TOLERATED WELL. INTEG: WHILE SLEEPIGN THIS AM, TURNED PT Q2 HR. DURING AFTERNOON, PT MAKING CONSTANT MAJOR ADJUSTMENTS BY SELF IN BED, FREQUENTLY REQUIRING INTERVENTION FROM RN FOR SAFETY. REMOVED LIDOCAINE PATCH FROM BACK. MK: TRANSITIONED TO SOFT UPPER EXTREMETY RESTRAINTS FROM TAT. PT HAS TOLERATED. Q2HR FULL ROM TO UE'S APPEARS TO ASSIST PT. SUSPECTED BACK PAIN PER SPOUSE OF PATIENT AND CPOT. PSYCH: SPOUSE OF PT VISITED TODAY FOR A FEW HOURS.
--- NOTE | 2021-03-26 18:16 | NUR ---
ADDENDUM TO SHIFT SUMMARY PT STATED HIS NAME WAS SANDY AND ASKED "WHERE...AM I?" MADE EYE CONTACT. SQUEEZED HAND TO COMMAND. ALLOWED/PARTICIPATED IN ORAL CARE. SUBSEQUENT RETURN TO CONFUSED STATE W/O FOLLOWING COMMANDS, RESTLESS MOVEMENT.
--- NOTE | 2021-03-26 19:00 | NUR ---
ASSUMPTION OF CARE PRECEDEX CONTINUES AT 0.2MCG/KG/HR. PT RESTLESS AND ATTEMPTING TO REPOSITION SELF IN BED. PT MAKES EYE CONTACT, STS HIS FIRST NAME, AND SQUEEZES BOTH HANDS. OTHERWISE MUTTERS WORDS AND PHRASES THAT ARE INCOMPREHENSIBLE OR NONSENSICLE. PT REMAINS IN BILAT SOFT WRIST RESTRAINTS. NEPRO TUBE FEEDING INFUSING AT 30ML/HR, SETTINGS INCREASED AT 2000 TO 40ML/HR WITH 50ML FLUSH Q4HRS. NOEL PATENT DRAINING SMALL AMOUNTS OF FERNANDO URINE. PT MEDICATED FOR PAIN PER EMAR AND REPOSITIONED. PT NO LONGER RESTLESS, CURRENTLY SLEEPING. VSS. SEE SHIFT ASSESSMENT.
--- NOTE | 2021-03-26 22:19 | NUR ---
UPDATE PT MORE ALERT THAN PREVIOUSLY. PT RESTLESS IN BED. WHEN ENTERING ROOM, PT MAKES EYE CONTACT AND TRACKS MOVEMENT. PT IS ABLE TO STATE FIRST AND LAST NAME. SPEECH HAS BECOME MORE CLEAR, WORDS AND PHRASES ARE AUDIBLE. PT ANSWERS QUESTIONS APPROPRIATELY. DOES NOT KNOW THE YEAR OR THE PRESIDENT. 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 OCCASIONALLY STS "I DON'T KNOW WHAT IS GOING ON". WHEN TOLD HIS IS IN THE HOSPITAL HE STS "OH YEAH". PT C/O BACK PAIN, PT REPOSITIONED, PILLOWS REMOVED AND PT APPEARS MORE COMFORTABLE.
[2021-03-27 03:26] LABS: Hemoglobin 9.8 g/dL (13.5-17.5)
[2021-03-27 03:41] LABS: Albumin, Blood 1.8 g/dL (3.4-5.0); Anion Gap 10 mmol/L (6-16); Blood Urea Nitrogen 33 mg/dL (8-24); Bun/Creatinine Ratio 5.2 (12.0-20.0); CO2, Blood 27 mmol/L (21-32); Calcium, Blood 7.9 mg/dL (8.5-10.1); Chloride, Blood 109 mmol/L (98-108); Glomerular Filtration Rate 9 (60-); Glucose, Blood 312 mg/dL (70-99); Magnesium, Blood 2.4 mg/dL (1.6-2.4); Phosphorus, Blood 4.3 mg/dL (2.5-4.9); Potassium, Blood 3.9 mmol/L (3.5-5.5); Sodium, Blood 146 mmol/L (136-145)
--- NOTE | 2021-03-27 06:33 | NUR ---
SHIFT SUMMARY & BEHAVIOR/RESTRAINTS PT HAS SLEPT THROUGH MOST OF NIGHT. THROUGH PART OF THE SHIFT PT WAS ABLE TO STATE HIS NAME, FOLLOWED CONVERSATION, WAS REDIRECTABLE AND FOLLOWED COMMANDS. PT VERY RESTLESS, PULLING LIGHTLY AGAINST RESTRAINTS AND C/O BACK PAIN. BILAT SOFT WRIST RESTRAINTS REMOVED AT 0215. PT TOLERATED WELL, REPOSITIONED SELF INDEPENDENTLY, REDIRECTABLE, NOT REACHING FOR TUBING/LINES. AT APPROX 0600, PT BECAME RESTLESS, ROLLING AND CONTINUOUSLY MOVING IN BED. TUBING AND LINES AT RISK, PT REACHING FOR DOBHOFF. PT IS NOT REDIRECTABLE, BEHAVIOR IS NOT AGGRESSIVE BUT HIGH RISK OF LOSING IV AND TUBES. MULTIPLE STAFF MEMBERS NEEDED TO ASSIST PT TO SUPINE POSITION SAFELY WHILE PROTECTING LINES. RESTRAINTS REAPPLIED AT 0615. PRECEDEX TITRATED TO 0.6MCG/KG/HR. PT REMAINS ON RA WITH SPO2 >94%. NOEL PATENT DRAINING FERNANDO/CLOUDY URINE. SHIFT OUTPUT 225ML. VSS. DR JAY AT BEDSIDE FOR EVAL, POSSIBLE PLAN TO CHANGE MEDICATIONS TODAY. WILL REPORT TO ONCOMING RN.
--- NOTE | 2021-03-27 07:31 | NUR ---
PATIENT RESTING, AROUSES TO VOICE AND THEN BACK TO SLEEP. NOT MUMBLING OR TALKING THIS AM, DR HOSKINS ROUNDED, NO NEW CHANGES TO CARE. PATIENT CONTINUALLY REPOSITIONING HIS SELF, REPORTED HX OF BACK PAIN TO DR HOSKINS, PATIENT BEING MEDICATED WITH LIQUID HYDROCODONE, PRECEDEX STILL INFUSING, HEART RATE 73
--- NOTE | 2021-03-27 10:56 | NUR ---
PATIENT RESTING, NO DISTRESS, EYES OPEN TO VOICE, CPAP ON, SATS %, WCTM
[2021-03-27 12:45] LABS: Vancomycin, Random 16.7 ug/mL
--- NOTE | 2021-03-27 18:37 | NUR ---
PATIENT CONFUSED, MUMBLED WORDS, AGGRESSIVE AT TIMES, RESTLESS MOVEMENT IN BED, PULLING AT RESTRAINTS. SLEEP APNEA, HOME CPAP ON, LS DIM, SATS 91% ON CPAP. PRECEDEX INFUSING AT 0.4 MCG, HEART RATE 40-70, SBP 120-160S. DOPHOFF INPLACE, TF INFUSING AT 50 ML/HR, NO DIALYSIS TODAY. ATTEMPTED A PICC LINE PLACEMENT UNSUCCESSFUL. WILL RELAY TO PM RN, RAMIREZ
--- NOTE | 2021-03-27 19:45 | NUR ---
ASSESSMENT/ASSUMED CARE PT LYING IN BED WITH EYES CLOSED. OPENS TO VERBAL STIMULI, BUT NOT FOLLOWING INSTRUCTIONS. SPEECH GARBLED AND UNABLE TO UNDERSTAND. BACK TO SLEEP WHEN UNDISTURBED. LUNGS CLEAR BUT DECREASED IN THE BASES ON ROOMAIR VIA HOME CPAP. RESP EVEN AND NONLABORED. HEART RATE REGULAR IN THE 70-80'S. BP ELEVATED WITH STIMULI. GENERAL EDEMA NOTED. BT+ HYPOACTIVE. DOBHOFF TO LEFT NARE. 65 CM AT NARE. TUBE FEED INFUSING NEPRO AT GOAL RATE 50 ML/HR WITH WATHER 50 ML Q4HR. IV OT LEFT FOREARM WITH NS AT 10 ML/HR AND PRECEDEX AT 0.2 MCQ/KG/HR. NOEL CATH PATENT DRAINING DARK YELLOW URINE, SMALL AMT, DIALYSIS PT. DIALYSIS CATH TO RIGHT IJ, DRSG INTACT, PORTS CLAMPED AND WRAPPED IN [place]. BILAT SOFT WRIST RESTRAINTS ON. PT MOVING SELF IN BED.
--- NOTE | 2021-03-27 23:43 | NUR ---
CALL TO MD CALL TO DR BOWEN REGARDING BLOOD GLUCOSE OF 390, PT RECEIVED 5 UNITS HUMALOG. ORDER RECEIVED TO INCREASED SLIDING SCALE TO MEDIUM, GIVE GLARGINE 15 UNITS NOW AND CHANGE CLARGINE TO 15 UNITS BID.
[2021-03-28 03:31] LABS: Hematocrit 29.1 % (37.0-53.0); Hemoglobin 9.3 g/dL (13.5-17.5)
[2021-03-28 03:46] LABS: Albumin, Blood 1.5 g/dL (3.4-5.0); Anion Gap 7 mmol/L (6-16); Blood Urea Nitrogen 39 mg/dL (8-24); Bun/Creatinine Ratio 5.2 (12.0-20.0); CO2, Blood 30 mmol/L (21-32); Calcium, Blood 7.9 mg/dL (8.5-10.1); Chloride, Blood 110 mmol/L (98-108); Creatinine, Blood 7.48 mg/dL (0.60-1.20); Glomerular Filtration Rate 7 (60-); Glucose, Blood 275 mg/dL (70-99); Magnesium, Blood 2.3 mg/dL (1.6-2.4); Potassium, Blood 3.5 mmol/L (3.5-5.5); Sodium, Blood 147 mmol/L (136-145)
--- NOTE | 2021-03-28 04:05 | NUR ---
PT VERY RESTLESS. PULLING ON RESTRAINTS, YELLING. TRIED TO REORIENT. PT TRYING TO PULL OUT LINES RESTARTED PRECEDEX
--- NOTE | 2021-03-28 05:59 | NUR ---
SHIFT SUMMARY PT RESTING QUIELTY. AWAKENS TO VERBAL STIMULI. NOT FOLLOWING INSTRUCTIONS. TRIES TO PULL OUT LINES WHEN RESTRAINTS OFF. MOVING SELF AROUND IN BED. PRECEDEX CURRENTLY AT 0.2 MCQ/KG/HR. OFF FOR ONE HOUR, BUT PT STARTED YELLING OUT, TRYING TO CLIMB OUT OF BED, PULLING ON RESTRAINTS AND LINES. AGITATED AND PUSHING AT STAFF. ON PRECEDEX AT 0.2 PT SLEEPING, BUT AWAKENS TO STIMULI. LUNGS CLEAR BUT DECREASED ON ROOMAIR WITH HOME CPAP. HEART RATE 70-80'S, BP STABLE. BP ELEVATED WHEN DISTURBED. DIALYSIS CATH TO RIGHT CHEST CLAMPED AND DRSG INTACT. NEW IV PLACED TO RIGHT AC. NOEL CATH PATENT DRAINING SMALL AMT YELLOW URINE. DIALYSIS TODAY. UNABLE TO PLACE POWER GLIDE. REPORT TO ON COMING NURSE
--- NOTE | 2021-03-28 09:07 | NUR ---
ASSUMED CARE REPORT FROM J[facility] AT 0700. PT RESTING IN BED. WAKES c VERBAL STIMULI. DOES NOT FOLLOW COMMANDS. MOANING AND INCOHERANT SPEECH. AGITATED c CARE. RESTS WHEN UNDISTURBED. PRECEDEX GTT AT 0.2 MCG/KG/HR, WILL DISCUSS ANTIPSYCHOTICS c EFM AND ATTEMPT TO TITRATE PRECEDEX DOWN/OFF. MAEW. CPAP IN PLACE. LUNGS DIM IN BASES, SHALLOW RESP. ABD ROUND, SOFT, NON TENDER. BT X 4. BOWEL CARE GIVEN. DOBHOFF AT 65 CM, TUBE FEEDS AT GOAL. PIV X 2. PERMACATH TO RIGHT CHEST WALL. NOEL PATENT, DRAINING CLOUDY YELLOW URINE TO GRAVITY. PLAN FOR DIALYSIS THIS SHIFT. VSS. WILL CONTINUE TO MONITOR.
--- NOTE | 2021-03-28 16:12 | NUR ---
Spoke with Dr Hunt, Primary RN Alba, and discussed case. Pt resting in bed with his eyes closed and is in soft restraints. Pt's spouse Rashi is at bedside. Offered therapeutic listening and answered questions. Reviewed plan of care with Rashi. Gentle education regarding dementia including progressin and tajectory. Continued supportive visit. Rashi expresses appreciation and reports no other concerns at this time. Palliative Care will remain available.
[2021-03-28 17:19] LABS: Vancomycin, Random 10.9 ug/mL
--- NOTE | 2021-03-28 18:13 | NUR ---
SHIFT SUMMARY PRECEDEX TITRATED OFF THIS SHIFT. PT OPENS EYES TO VERBAL STIMULI. OCCASIONALLY APPEARS TO MAKE EYE CONTACT. DOES NOT TRACK, DOES NOT FOLLOW COMMANDS. ATTEMPTS TO ANSWER QUESTIONS. KNOWS NAME ONLY. STATES "I HAVE TO TAKE A SHIT" SEVERAL TIMES. PLACED ON BEDPAN c NO SUCCESS. MAEW. NO LONGER AGGRESSIVE TOWARDS STAFF. DIALYSIS COMPLETE THIS SHIFT, 2L OFF. TUBE FEEDS AT GOAL, NO BM. NOEL PATENT, DRAINING CLEAR YELLOW URINE TO GRAVITY. 300 ML OUT THIS SHIFT. DR HOSKINS UPDATED . RESTRAINTS REMAIN ON TO PROTECT LINES AND TUBES. WILL CONTINUE TO MONITOR UNTIL REPORT TO ONCOMING NURSE.
--- NOTE | 2021-03-28 19:30 | NUR ---
ASSUMPTION OF CARE RECEIVED REPORT FROM JARETT [facility] AT 1910. ASSUMED CARE OF PATIENT. PATIENT IN BED, VERBALIZING INCOHERENT SENTENCES. TRACKED RN IN ROOM, RESPONDED TO NAME AND STATED "I DON'T KNOW WHERE I AM" RN ORIENTED PATIENT TO PLACE AND SITUATION. PATIENT BEGAN MUMBLING INCOHERENT SENTENCES AGAIN. SARAH TO RIGHT ALMANZA WITH TF OF NEPRO AT 50ML/HR. PERMACATH TO RIGHT UPPER CHEST WALL, NO INFUSIONS, USED FOR DIALYSIS ONLY. PRECEDEX REMAINS ON STANDBY AND NS AT 10ML/HR INFUSING VIA LEFT PERIPHERAL LINE. NOEL CATHETER IN PLACE WITH CLEAR, YELLOW URINE. VITALS NOTED ST OF 100-110, AND SBP>170. O2 OF 98% ON RA. WILL REVIEW ORDERS AND TREAT PRESCRIBED.
--- NOTE | 2021-03-28 21:26 | NUR ---
CONFUSION PATIENT BEGAN CALLING OUT FOR . ATTEMPTING TO GET UP AND PULLING AGAINST RESTRANTS. KICKING LEGS AGGRESSIVELY. VERBALLY REDIRECTED PATIENT BUT WAS UNSUCCESSFUL. PRN ATIVAN GIVEN CHARTED. PATIENT NOW CALM AND COOPERATIVE WITH CARE. VITALS STABLE.
[2021-03-29 04:00] LABS: Hematocrit 27.5 % (37.0-53.0); Hemoglobin 8.7 g/dL (13.5-17.5)
[2021-03-29 04:32] LABS: Albumin, Blood 1.3 g/dL (3.4-5.0); Anion Gap 5 mmol/L (6-16); Blood Urea Nitrogen 31 mg/dL (8-24); Bun/Creatinine Ratio 5.1 (12.0-20.0); CO2, Blood 31 mmol/L (21-32); Calcium, Blood 7.6 mg/dL (8.5-10.1); Chloride, Blood 112 mmol/L (98-108); Creatinine, Blood 6.04 mg/dL (0.60-1.20); Glomerular Filtration Rate 9 (60-); Glucose, Blood 240 mg/dL (70-99); Magnesium, Blood 2.2 mg/dL (1.6-2.4); Phosphorus, Blood 2.9 mg/dL (2.5-4.9); Potassium, Blood 3.3 mmol/L (3.5-5.5); Sodium, Blood 148 mmol/L (136-145)
--- NOTE | 2021-03-29 05:51 | NUR ---
SHIFT SUMMARY PATIENT BEGAN SHIFT WITH MUMBLED SENTENCES, DISORIENTED BUT FOLLOWING COMMANDS. SHIFT PROGRESSED, PATIENT'S SPEECH CLEARED. PATIENT SPOKE OF SON AND DAUGHTER OFTEN USING CLEAR SENTENCES AND VERBALIZING NAMES. PATIENT WITH ON EPISODE OF INCREASED CONFUSION AND AGGRESSIVE BEHAVIOR. ATIVAN PRN GIVEN AND EFFECTIVE. PATIENT BEGAN RESTING AFTER 2200, CPAP PLACED WITH NO 02 BLEED IN. 02 SATS ABOVE 95%. PATIENT TOLERATED CPAP WELL. TUBE FEEDS REMAINED AT GOAL VIA DOBHOFF. BILAT SWR IN PLACE. NOEL PATENT AND DRAINING CLEAR, YELLOW URINE. REPOSITIONED FOR SKIN INTEGRITY. POTASSIUM RESULT CALLED TO DR. BOWEN, RECEIVED ORDERS TO REPLACE. PATIENT COOPERATIVE WITH AM ORAL CARE, DENIED PAIN OR DISCOMFORTS WHEN ASKED. WILL CONTINUE TO MONITOR AND REPORT TO ONCOMING RN.
--- NOTE | 2021-03-29 08:00 | NUR ---
PT SLEEPS WHEN NOT DISTURBED. HOME CPAP IN PLACE-RA AND SATS>90%PT OPENS EYES TO VOICE AND FOLLOWS SOME SIMPLE COMMANDS. PT SPEECH IS GARBLED, HE MUMBLES, AND IS DIFFICULT TO UNDERSTAND. PT FOLLOWING COMMANDS TO OPEN HIS MOUTH AND HE DID ALLOW FOR ORAL CARE. PT REACHES FOR LINES AND TUBES WHEN NOT RESTRAINED. PT MOVES ALL EXTREMITIES, THOUGH NOT ALWAYS ABLE TO FOLLOW COMMANDS TO DO SO. TEMP 100.4. HR 100-120'S ST. SBP 170'S. GENERALIZED EDEMA CONTINUES-ESPECIALLY TO EXTREMITIES 2-3+ AND PITTING TO LOWER EXTREMITIES. LUNGS DIMINISHED TO BASES. OCCASIONAL COUGH-PRODUCTIVE OF LARGE AMOUNTS OF THICK, YELLOW/BROWN SPUTUM. PT NOTED TO HAVE SEVERAL AREAS IN HIS HANDLEY THAT SEEMED TO BE SPUTUM THAT HE SPIT OUT.PT NPO-DOBHOFF TF NEPRO @ 50 CC/HR WITHOUT DIFFICUTLY. CHARLES AREA WITH YEAST-LIKE RASH. WILL REQUEST ANTI-FUNGAL POWDER. PARTIAL BATH, PARTIAL LINEN CHANGE, AND CHARLES CARE COMPLETED. PT TOLERATED WELL, BUT REQUIRED 3 PEOPLE TO TURN AND REPOSITION. DR. HOSKINS IN TO SEE PT. UPDATED TO CURRENT VS AND STATUS. PT MADE MEDICAL FLOOR STATUS-SPECIAL CARE UNIT DUE TO CONFUSION.
--- NOTE | 2021-03-29 10:15 | NUR ---
WHILE DOING ROUNDS, RN ASKED PT IF HE WAS OK? PT STATED "I'M GOING TO THROW UP." IMMEDIATELY, HOB ELEVATED AND YANKEUR SUCTION UTILIZED TO ATTEMPT TO PREVENT ASIPIRATION. HOWEVER, PT PROJECTILE VOMITED APOXIMATELY 2 LITERS OF UNDIGESTED TUBE FEEDING WITH SOME CLUMPS. ALSO, PT VOMITED UP HIS DOBHOFF.PT MAINTAINED SATS>90%. DR. HOSKINS UPDATED. PT GIVEN COMPLETED BED BATH & LINEN CHANGE COMPLETED. AFTER BED BATH, PT BEGAN VOMITING AGAIN. PT MED WITH ZOFRAN 8 MG IVP X1 AND NGT PLACED TO RIGHT NARE-PLACED TO LOW CONTINUOUS SUCTION.
--- NOTE | 2021-03-29 11:40 | NUR ---
Spoke with Dr Hunt this AM and discussed case. Pt showing some improvement today. Pt in bed with ICU care team inserting NG tube. Pt has been vomiting and potentially have an illeus. Pt cooperative with care this AM. Palliative Care will remain available.
--- NOTE | 2021-03-29 12:00 | NUR ---
PT AWAKENS EASILY TO VOICE. SOME COHERENT COMMUNICATION. PT FOLLOWS SOME COMMANDS, BUT APPEARS IRRITABLE AND AGITATED AT TIMES. PT REACHES FOR PG AND NGT WHEN NOT RESTRAINED. LUNGS DIMINISHED IN THE BASES. NO NOTED SOB. HOWEVER, PT PLACED ON 3 LITERS NASAL CANULA TO KEEP SATS>90%. HR 90-120'S SR TO ST. SBP TRENDING 180'S-MED WITH HYDRALAZINE-SEE EMAR. CBG 136-NO COVERAGE REQUIRED. NGT TO RIGHT NARE CONTINUES TO LOW CONTINUOUS SUCTION. NGT SUCTION PRODUCTIVE OF SMALL AMOUNT OF UNDIGESTED TUBE FEEDING.
--- NOTE | 2021-03-29 13:00 | NUR ---
LEFT FOREARM IV LEAKING-DISCONTINUED WITH CATHETER INTACT. THERE IS A SMALL PRESSURE ULCER NOTED. CLEANSED WITH SUREPREP AND APPLIED FOAM DRESSING.
--- NOTE | 2021-03-29 14:00 | NUR ---
PT RESTING QUIETLY WHEN NOT DISTURBED. AWAKENED EASILY WHEN RN CALLED HIS NAME. PT BECAME AGITATED WITH ORAL CARE AND REPOSITIONING. ULTIMATELY, PT DID COMPLY/COOPERATE WITH CARE.
--- NOTE | 2021-03-29 16:30 | NUR ---
PT GRIMACING AND CRIED OUT "OUCH!" HOWEVER, WHEN ASKED WHERE THE PAIN WAS, PT STATES "I DON'T KNOW." WHEN THIS RN DOING ORAL CARE, PT BECAME VERY AGITATED AND ATTEMPTED TO GRAB MY WRIST. PT COOPERATED WITH ORAL CARE WITH LOTS OF ENCOURAGEMENT. TEMP 100.5 . BP STABLE SINCE HYDRALAZINE GIVEN EARLIER TODAY-SEE EMAR.LUNGS DIMNISHED IN THE BASES. SATS>90% ON 2 LITERS NASAL CANULA. PT NPO. NGT WITH MODERATE AMOUNT OF GREEN, BILIOUS, LIQUID DRAINAGE. EDEMA CONTINUES. URINE OUTPUT 275 THIS SHIFT. PLAN FOR DIALYSIS TOMORROW. DR. HOSKINS MADE AWARE THAT PT IS FEBRILE AND OF CONCERN THAT PT MAY HAVE ASPIRATED WHEN HE VOMITED EARLIER TODAY. PT NOW PCU STATUS. STAT CH1V ORDERED.
[2021-03-29 16:53] LABS: Source, Urine Foley catheter
--- NOTE | 2021-03-29 16:53 | NUR ---
CH1V DONE AND U/A SENT.
[2021-03-29 16:56] LABS: Appearance, Urine Hazy (Clear); Bilirubin, Urine Neg (Neg); Blood, Urine 4+ (Neg); Color, Urine Yellow (P-Yellow); Glucose Qualitative, Urine 3+ (Neg); Ketones, Urine 1+ (Neg); Leukocyte Esterase, Urine Neg (Neg); Nitrite, Urine Neg (Neg); Protein, Urine 4+ (Neg); Urobilinogen, Urine NORM (Normal)
[2021-03-29 17:21] LABS: Amorphous Light (0-Heavy); Granular Casts Rare /lpf (0)
[2021-03-29 17:23] LABS: Bacteria Mod /hpf; Squamous Epithelial Cells Not Seen /hpf (Few)
--- NOTE | 2021-03-29 18:05 | NUR ---
PT RESTING QUIETLY WHEN NOT DISTURBED. NO ACUTE DISTRESS NOTED AT THIS TIME. NO ACUTE CHANGES.
--- NOTE | 2021-03-29 19:15 | NUR ---
ASSUMPTION OF CARE NS TKO INFUSING. PT ON 2L NC WITH SPO2 >96%. NG IN PLACE CONNECTED TO LOW CONTINUOUS SUCTION. DRAINAGE IS DARK BILE COLORED IN CANISTER BUT DOES NOT APPEAR TO BE ACTIVELY REMOVING LIQUID AT THIS TIME. DISCONNECTED FROM SUCTION, GIVEN MEDS AND FLUSHED WITH SMALL AMOUNT OF WATER. PT APPEARS TO BE TOLERATING. PT WAKENS EASILY TO VERBAL STIMULI. PT MAKES EYE CONTACT AND FOLLOWS SOME COMMANDS ALTHOUGH SLOW TO RESPOND. PT IS ABLE TO STATE HIS FIRST NAME. MOSTLY ANSWERS YES/NO QUESTIONS. SMALL AMOUNTS OF INCOMPREHENSIBLE PHRASES. PT DENIES NAUSEA. C/O PAIN, WHEN ASKED IF IT IS HIS BACK HE STS "YES" AND WHEN ASKED IF IT HURTS ANYWHERE ELSE HE STS "I DON'T KNOW". PT SQUEEZES HANDS LIGHTLY TO COMMMAND AND DOES NOT WIGGLE TOES. BUT PT MAKES STRONG PURPOSEFUL MOVEMENTS WITH EXTREMITIES TO REPOSITION SELF. NOEL REMAINS IN PLACE DRAINING DARK YELLOW URINE. SEE SHIFT ASSESSMENT.
[2021-03-30 03:33] LABS: Hemoglobin 9.3 g/dL (13.5-17.5)
[2021-03-30 03:54] LABS: Albumin, Blood 1.3 g/dL (3.4-5.0); Anion Gap 3 mmol/L (6-16); Blood Urea Nitrogen 40 mg/dL (8-24); Bun/Creatinine Ratio 5.6 (12.0-20.0); CO2, Blood 33 mmol/L (21-32); Calcium, Blood 7.8 mg/dL (8.5-10.1); Chloride, Blood 113 mmol/L (98-108); Creatinine, Blood 7.08 mg/dL (0.60-1.20); Glomerular Filtration Rate 8 (60-); Glucose, Blood 187 mg/dL (70-99); Magnesium, Blood 2.4 mg/dL (1.6-2.4); Phosphorus, Blood 4.5 mg/dL (2.5-4.9); Potassium, Blood 3.9 mmol/L (3.5-5.5); Sodium, Blood 149 mmol/L (136-145)
--- NOTE | 2021-03-30 06:12 | NUR ---
SHIFT SUMMARY PT IS ON RA WITH SPO2 >93%. PT HAS BEEN AWAKE FOR THE LAST TWO HOURS. PT HAS MOMENTS OF CLARITY AND THEN CONFUSION. PT CONSISTENTLY ABLE TO STATE HIS NAME AND KNOWS HIS AND SON'S NAMES, OTHER INFORMATION COMES AND GOES. PT PARTICPATES IN CONVERSATION AND WILL ANSWER QUESTIONS, MOSTLY COMPLIANT. PT BECAME AGITATED REGARDING NEED TO URINATE AND HAVE A BOWEL MOVEMENT. PT INSISTS ON GETTING OUT OF BED TO "GO AROUND THE CORNER AND GO OUTSIDE". PT REMINDED NEED TO STAY IN BED AT THIS TIME, PT PULLING AGAINST RESTRAINTS AND MEDICATED PER EMAR. AFTER PT CALMED DOWN, PT PLACED ON BEDPAN AND HAD SMALL BM. PT HAD LARGE INCONTINENT BM EARLIER IN SHIFT. PT DENIES PAIN OR NAUSEA AT THIS TIME. NG CLAMPED. DARK YELLOW URINE WITH 300ML OUTPUT THIS SHIFT. PT CURRENTLY LYING IN BED WITH EYES CLOSED. VSS. WILL REPORT TO ONCOMING RN.
[2021-03-30 07:54] LABS: BASOPHILS ABSOLUTE AUTO 0.05 K/mm3 (0.00-0.23); BASOPHILS PERCENT AUTO 1 % (0-2); EOSINOPHILS ABSOLUTE AUTO 0.31 K/mm3 (0.00-0.68); EOSINOPHILS PERCENT AUTO 3 % (0-6); Hematocrit 30.5 % (37.0-53.0); Hemoglobin 9.3 g/dL (13.5-17.5); IMMATURE GRAN ABSOLUTE AUTO 0.05 K/mm3 (0.00-0.10); IMMATURE GRAN PERCENT AUTO 1 % (0-1); LYMPHOCYTES ABSOLUTE AUTO 1.31 K/mm3 (0.84-5.20); LYMPHOCYTES PERCENT AUTO 15 % (21-46); MONOCYTES ABSOLUTE AUTO 0.98 K/mm3 (0.16-1.47); MONOCYTES PERCENT AUTO 11 % (4-13); Mean Corpuscular HGB 30.8 pg (26.0-34.0); Mean Corpuscular HGB Conc 30.5 g/dL (31.5-36.5); Mean Corpuscular Volume 101 fL (80-100); Mean Platelet Volume 9.7 fL (9.1-12.4); NEUTROPHILS PERCENT AUTO 70 % (41-73); Platelet Count 126 K/mm3 (150-400); RDW Coefficient Variation 12.7 % (11.7-14.2); RDW Standard Deviation 46.5 fL (35.1-46.3); Red Blood Cell Count 3.02 M/mm3 (4.30-5.90)
--- NOTE | 2021-03-30 09:00 | NUR ---
AM ASSESSMENT: PT EXTREMELY CONFUSED AND AGITATED. PT INCONTINENT OF LARGE AMOUNT OF BROWN, LIQUID STOOL. WHEN ATTEMPTING TO CLEAN UP PT, PT BEGAN YELLING, KICKING, AND PULLING ON RESTRAINTS. PT MED WITH ATIVAN 1 MG IVP X 1, THEN RN AND WINE BOTTLE INSPECTOR ATTEMPTED TO DO PARTIAL BATH AND CHANGE LINEN. HOWEVER, PT CONTINUED TO WRITHE IN THE BED AND CRY OUT. PT TRYING TO GRAB ON TO STAFF MEMBERS WRISTS. PT MED WITH FENTANYL 50 MG IVP X1 AND AFTER APROXIMATELY 5 MINUTES AND WITH 4 STAFF MEEMBERS PRESENT, ABLE TO COMPLETE PT AM CARE. PT IS AFEBRILE. ECG SHOWS SR TO ST. BP STABLE. LUNGS DIMINISHED IN THE BASES AND SATS>90% ON RA. NO NOTED COUGH. ORAL MUCOSA VERY DRY. PT IS A MOUTH BREATHER. ORAL CARE COMPLETED WITH MUCH DIFFICULTY. PT BITES ON YANKEUR AND THE ORAL CARE SWAB. ABDOMEN IS SOFT WITH BT'S X 4. NGT INTACT TO RIGHT NARE. ROUTINE AM MEDS GIVEN AND NGT FLUSHED WITH 100 CC H20. NGT CLAMPED AFTER MEDS GIVEN. EDEMA IS WORSE TODAY. RIGHT ARM WEEPING. NOEL WITH SCANT AMOUNT OUT FERNANDO URINE TO BSD. ANTICIPATE DIALYSIS LATER TODAY.
--- NOTE | 2021-03-30 10:00 | NUR ---
PT REMAINS INTERMITTIENTLY AGITATED. GIVEN SEROQUEL VIA NGT. ORAL CARE DONE WITH NYSTATIN SWISH AND SWALLOW-PT TOLERATED FAIR.
--- NOTE | 2021-03-30 10:04 | NUR ---
I called and spoke with Rashi (patient's ) this morning. I let her know that he is now at the top of the waiting list for [facility]. She is concerned with his behaviors and mental health since being admitted. She states that when he is medically stable to discharge she would like to have him come home but, is concerned about this declining mental health. I offered the option of applying for Medicaid and making a referral to [facility]. She declined at this time and hopes that he will improve to his baseline prior to admit. I confirmed that she has my work cell phone number for future communication due to the current no visitor policy at [facility].
--- NOTE | 2021-03-30 12:01 | NUR ---
PT SOMULENT. TEMP 99.4. LUNGS SLIGHTLY COARSE TO UPPER LOBES. PT HOME CPAP PLACED HE HAS BEEN SLEEPING. SATS IN THE UPPER 90'S WITH CPAP 11 AND RA.CBG 225 COVERED PER SLIDING SCALE-SEE EMAR. PREP TO TRANSFER PT TO DIALYSIS UNIT FOR HEMODIALYSIS.
--- NOTE | 2021-03-30 15:26 | NUR ---
PT RETURNED FROM DIALYSIS. 1.5 LITERS REMOVED. PT OPENS EYES WITH ORAL CARE, GRIMACES, AND BITES DOWN ON SUCTION. PT NOT FOLLOWING COMMANDS. AFEBRILE. SBP 130'S. HR 80-90'S SR. NO CHANGE IN EDEMA. LUNGS REMAIN COARSE TO UPPER LOBES AND DIMINISHED IN THE BASES. SATS 98% ON PT HOME CPAP 11 AND RA. NO NOTED COUGH. OGT REMAINS CLAMPED AND ABDOMEN IS SOFT/NONTENDER TO PALPATION. NOEL WITH SMALL AMOUNT OF DARK, YELLOW URINE TO BSD. MRS. MCKEON GIVEN UPDATE REGARDING PT CURRENT STATUS AND PLAN OF CARE. DR. HOSKINS SPOKE WITH HER WELL.
--- NOTE | 2021-03-30 19:10 | NUR ---
ASSUMPTION OF CARE PT IS ON HOME CPAP AT THIS TIME. HE IS LYING IN BED SLEEPING, EASILY AROUSABLE WITH VERBAL STIMULI. PT IRRITATBLE, RELUCTANT TO ANSWER QUESTIONS BUT EVENTUALLY DOES. SPEECH IS MOSTLY CLEAR BUT ONLY SAYS A FEW WORDS THEN CLOSES EYES. NGT CLAMPED. NOEL REMAINS IN PLACE. SEE SHIFT ASSESSMENT.
[2021-03-31 03:51] LABS: Hematocrit 30.4 % (37.0-53.0); Hemoglobin 9.8 g/dL (13.5-17.5)
[2021-03-31 04:09] LABS: Albumin, Blood 1.5 g/dL (3.4-5.0); Anion Gap 4 mmol/L (6-16); Blood Urea Nitrogen 34 mg/dL (8-24); Bun/Creatinine Ratio 5.7 (12.0-20.0); CO2, Blood 32 mmol/L (21-32); Calcium, Blood 8.3 mg/dL (8.5-10.1); Chloride, Blood 111 mmol/L (98-108); Creatinine, Blood 5.92 mg/dL (0.60-1.20); Glomerular Filtration Rate 10 (60-); Glucose, Blood 111 mg/dL (70-99); Magnesium, Blood 2.1 mg/dL (1.6-2.4); Phosphorus, Blood 3.2 mg/dL (2.5-4.9); Potassium, Blood 3.9 mmol/L (3.5-5.5); Sodium, Blood 147 mmol/L (136-145)
--- NOTE | 2021-03-31 05:53 | NUR ---
SHIFT SUMMARY PT REMAINS ON CPAP. PT AWAKE AND WATCHING TV. OCCASIONALLY RESTLESS AND MUMBLING TO SELF. PT MAKES EYE CONTACT WHEN ENTERING ROOM. PT INCONSISTENTLY FOLLOWS COMMANDS AND ONLY ANSWERS SOME QUESTIONS. PT REMAINS CONFUSED AND HAS CONVERSATIONS THAT ARE NONSENSICAL AND SOMETIMES DIFFICULT TO UNDERSTAND WORDS. NGT IS CLAMPED AND HAS HAD 100ML WATER FLUSHES Q6. NOEL REMAINS IN PLACE DRAINING FERNANDO URINE WITH SHIFT OUTPUT OF 125ML. PT MEDICATED WITH ATIVAN PER EMAR. VSS. WILL REPORT TO ONCOMING RN.
--- NOTE | 2021-03-31 08:00 | NUR ---
PT REMAINS CONFUSED. PT VERY RESTLESS AND AGITATED THIS AM. PT GRIMACING & MUMBLING INCOHERENTLY. PT PULLING ON RESTRAINTS AND KICKING HIS LEGS IN THE BED. MED WITH ATIVAN 1 MG IVP-SEE EMAR. HYSET GIVEN NGT FOR PAIN/SEDATION ADJUNCT-SEE EMAR. TEMP 99.4. ECG SHOWS SR. BP 168/59. EDEMA CONTINUES THROUGH OUT-PARTICULARLY TO THE EXTREMITIES. EXTREMITIES ELEVATED ON PILLOWS. LUNGS DIMINISHED IN THE BASES. NO NOTED SOB OR COUGH. PT GIVEN BREAK FROM CPAP HE IS AWAKE-THOUGH CONFUSED. SATS>90% ON RA. ABDOMEN SOFT AND NONTENDER TO PALPATION. NGT CLAMPED AFTER AM MEDS GIVEN. CBG 111-LONG ACTING INSULIN HELD THIS AM. WILL REQUEST TO RESUME TUBE FEEDING. FOAM DRESSING INTACT TO LEFT FOREARM. CHARLES AREA RED/[id number] POWDER PLACED AFTER CHARLES CARE DONE. NOEL WITH SMALL AMOUNT OF DARK, YELLOW URINE TO BSD. NO DIALYSIS ANTICIPATED TODAY.
--- NOTE | 2021-03-31 11:05 | NUR ---
PT GRIMACING, AGITATED, PULLING ON RESTRAINTS. PT MOVING HIS HIPS BACK AND FORTH AND KICKING HIS LEGS AT TIMES. SBOP 200'S/100-110'S-MED WITH ATIVAN 1 MG IVP, FENTANYL 50 MCG IVP X 1, AND HYDRALAZINE 10 MG IVP-SEE EMAR. CBG 81-NO COVERAGE GIVEN.
--- NOTE | 2021-03-31 17:20 | NUR ---
PT HAS REMAINED CONFUSED THORUGH OUT THE SHIFT. PT VERY AGITATED WITH ORAL CARE AND POSITION CHANGES. PT CONTINUES TO KICK HIS LEGS ABOUT THE BED AND PUSHES AGAINST STAFF WITH TURNING/REPOSITIONING. PT REACHES FOR STAFF, LINES, AND TUBES WHEN NOT RESTRAINED. MED WITH ATIVAN 1 MG IVP X 2 THIS SHIFT-SEE EMAR. PT SLEEPS OFF AND ON-CPAP IN PLACE. SATS>90% TEMP 99.1 BP STABLE. PT TOLERATING TF WELL-15 CC RESIDUAL REFED. NOEL WITH 150 CC URINE OUT THIS SHIFT.
--- NOTE | 2021-03-31 20:00 | NUR ---
Assumed care after report recv'd. assessment complete. moving around in bed, resistance to passive ROM. Does not attempt to communicate with nurse. tolerating tube feeding, 5 ml residual. increased rate to goal rate of 50.
[2021-04-01 04:36] LABS: BASOPHILS ABSOLUTE AUTO 0.02 K/mm3 (0.00-0.23); BASOPHILS PERCENT AUTO 0 % (0-2); EOSINOPHILS PERCENT AUTO 0 % (0-6); Hematocrit 30.4 % (37.0-53.0); Hemoglobin 10.1 g/dL (13.5-17.5); IMMATURE GRAN ABSOLUTE AUTO 0.09 K/mm3 (0.00-0.10); IMMATURE GRAN PERCENT AUTO 1 % (0-1); LYMPHOCYTES ABSOLUTE AUTO 1.19 K/mm3 (0.84-5.20); LYMPHOCYTES PERCENT AUTO 6 % (21-46); MONOCYTES ABSOLUTE AUTO 1.36 K/mm3 (0.16-1.47); MONOCYTES PERCENT AUTO 7 % (4-13); Mean Corpuscular HGB 31.8 pg (26.0-34.0); Mean Corpuscular HGB Conc 33.2 g/dL (31.5-36.5); Mean Corpuscular Volume 96 fL (80-100); Mean Platelet Volume 9.9 fL (9.1-12.4); NEUTROPHILS ABSOLUTE AUTO 15.83 K/mm3 (1.96-9.15); NEUTROPHILS PERCENT AUTO 86 % (41-73); Platelet Count 172 K/mm3 (150-400); RDW Coefficient Variation 12.5 % (11.7-14.2); RDW Standard Deviation 42.4 fL (35.1-46.3); Red Blood Cell Count 3.18 M/mm3 (4.30-5.90); White Blood Cell Count 18.49 K/mm3 (4.00-11.30)
[2021-04-01 05:11] LABS: Albumin, Blood 1.5 g/dL (3.4-5.0); Albumin/Globulin Ratio 0.4 (0.8-1.8); Bilirubin, Total 0.3 mg/dL (0.1-1.0); Bun/Creatinine Ratio 7.3 (12.0-20.0); C-REACTIVE PROTEIN, EXT RANGE 1.94 mg/dL (0.000-0.300); Creatinine, Blood 7.11 mg/dL (0.60-1.20); Globulin, Blood 3.5 g/dL (2.2-4.0); Magnesium, Blood 2.6 mg/dL (1.6-2.4); Phosphorus, Blood 4.4 mg/dL (2.5-4.9); Potassium, Blood 4.2 mmol/L (3.5-5.5)
--- NOTE | 2021-04-01 06:27 | NUR ---
Rested well through night. Periods of restlessness and very tense during turns. Medicated for comfort, see eMAR. No attempts to communicate and will not follow directions. Generalized edema with uppper extremities weeping. attemts made to keep extremities elevated
[2021-04-01 07:09] LABS: HBSAG SCREEN Negative (Negative); HEP B CORE AB, TOT Negative (Negative); HEP C VIRUS AB <0.1 (0.0-0.9); HIV AB/P24 AG SCREEN Non Reactive (Non Reactive)
--- NOTE | 2021-04-02 02:10 | NUR ---
DR BOWEN UPDATED WITH G 375. ORDER FOR 10 UNITS LANTUS NOW AND INCREASE SS TO HIGH.
[2021-04-02 04:18] LABS: BASOPHILS ABSOLUTE AUTO 0.03 K/mm3 (0.00-0.23); BASOPHILS PERCENT AUTO 0 % (0-2); EOSINOPHILS PERCENT AUTO 0 % (0-6); Hematocrit 29.7 % (37.0-53.0); Hemoglobin 9.9 g/dL (13.5-17.5); IMMATURE GRAN ABSOLUTE AUTO 0.19 K/mm3 (0.00-0.10); IMMATURE GRAN PERCENT AUTO 1 % (0-1); LYMPHOCYTES ABSOLUTE AUTO 0.71 K/mm3 (0.84-5.20); LYMPHOCYTES PERCENT AUTO 4 % (21-46); MONOCYTES ABSOLUTE AUTO 1.26 K/mm3 (0.16-1.47); MONOCYTES PERCENT AUTO 7 % (4-13); Mean Corpuscular HGB 31.7 pg (26.0-34.0); Mean Corpuscular HGB Conc 33.3 g/dL (31.5-36.5); Mean Corpuscular Volume 95 fL (80-100); Mean Platelet Volume 9.7 fL (9.1-12.4); NEUTROPHILS ABSOLUTE AUTO 15.98 K/mm3 (1.96-9.15); NEUTROPHILS PERCENT AUTO 88 % (41-73); Platelet Count 171 K/mm3 (150-400); RDW Coefficient Variation 12.8 % (11.7-14.2); RDW Standard Deviation 42.5 fL (35.1-46.3); Red Blood Cell Count 3.12 M/mm3 (4.30-5.90); White Blood Cell Count 18.17 K/mm3 (4.00-11.30)
[2021-04-02 04:38] LABS: Calcium, Blood 7.9 mg/dL (8.5-10.1); Creatinine, Blood 5.89 mg/dL (0.60-1.20)
--- NOTE | 2021-04-02 06:21 | NUR ---
NO SIGNIFICANT CHANGES OVERNIGHT. PT OPENS EYES TO VOICE BUT DOES NOT FOLLOW COMMANDS. HE TURNS AWAY FROM ORAL CARE AND STATES VERY CLEARLY, "LEAVE ME ALONE!" WHEN CHANGING HIS LINENS. VSS. WILL CONTINUE TO MONITOR AND REPORT TO ONCOMING SHIFT.
--- NOTE | 2021-04-02 07:30 | NUR ---
ASSUMED CARE: PT RESTING IN BED. NG WITH TF IN PLACE. RA. BILATERAL SOFT WRIST RESTRAINTS IN PLACE DUE TO CONFUSION. SINUS TACH ON TELE AT 101. NO ACUTE NEEDS OR CONCERNS AT THIS TIME.
--- NOTE | 2021-04-02 10:00 | NUR ---
REPOSITIONED AND GAVE PT BATH DUE TO BOWEL MOVEMENT. DURING BATH, RELEASED WRIST RESTRAINT FOR REPOSITIONING AND PT IMMEDIATELY REACHED FOR NG TUBE. WHEN ARM WAS REPLACED IN RESTRAINT, PT SAID "JUST GIVE ME A F------ ARM." SPEECH HAD BEEN GARBLED PRIOR TO THIS. PT IRRITABLE WITH REPOSITIONING. BILATERAL WRIST RESTRAINTS BACK IN PLACE AND PT RESTING QUIETLY
--- NOTE | 2021-04-02 13:05 | NUR ---
PT'S CALLED TO SEE HOW HE IS DOING. GAVE HER AN UPDATE REGARDING STATUS AND ALSO MENTIONED THAT WOULD LIKE TO DO A MEETING WITH HER SOME TIME THIS WEEK TO DISCUSS DISCHARGE PLANS BUT ALSO WANTED TO SEE IF SEEING HER IMPROVED PT'S MENTATION. NO ACUTE NEEDS AT THIS TIME.
--- NOTE | 2021-04-02 19:08 | NUR ---
SHIFT SUMMARY: PT REMAINS IN BILATERAL WRIST RESTRAINTS AND CONFUSED. TF IN PLACE, ATTEMPTS TO GRAB AT NG IF HANDS ARE FREE FROM RESTRAINTS. SPOKE WITH PT'S AND SHE IS AWARE THAT DR WILL WANT MEETING LATER THIS WEEK TO DISCUSS DC PLANS AND ORIENTATION. RESTING QUIETLY AT THIS TIME. NO ACUTE NEEDS OR CONCERNS.
[2021-04-03 04:10] LABS: BASOPHILS ABSOLUTE AUTO 0.02 K/mm3 (0.00-0.23); BASOPHILS PERCENT AUTO 0 % (0-2); EOSINOPHILS ABSOLUTE AUTO 0.01 K/mm3 (0.00-0.68); EOSINOPHILS PERCENT AUTO 0 % (0-6); Hematocrit 28.4 % (37.0-53.0); Hemoglobin 9.4 g/dL (13.5-17.5); IMMATURE GRAN ABSOLUTE AUTO 0.17 K/mm3 (0.00-0.10); IMMATURE GRAN PERCENT AUTO 1 % (0-1); LYMPHOCYTES ABSOLUTE AUTO 1.41 K/mm3 (0.84-5.20); LYMPHOCYTES PERCENT AUTO 7 % (21-46); MONOCYTES ABSOLUTE AUTO 1.96 K/mm3 (0.16-1.47); MONOCYTES PERCENT AUTO 10 % (4-13); Mean Corpuscular HGB 31.5 pg (26.0-34.0); Mean Corpuscular HGB Conc 33.1 g/dL (31.5-36.5); Mean Corpuscular Volume 95 fL (80-100); Mean Platelet Volume 9.8 fL (9.1-12.4); NEUTROPHILS ABSOLUTE AUTO 17.05 K/mm3 (1.96-9.15); NEUTROPHILS PERCENT AUTO 83 % (41-73); Platelet Count 190 K/mm3 (150-400); RDW Coefficient Variation 12.8 % (11.7-14.2); RDW Standard Deviation 42.1 fL (35.1-46.3); Red Blood Cell Count 2.98 M/mm3 (4.30-5.90); White Blood Cell Count 20.62 K/mm3 (4.00-11.30)
[2021-04-03 04:29] LABS: Albumin, Blood 1.5 g/dL (3.4-5.0); Albumin/Globulin Ratio 0.5 (0.8-1.8); Bilirubin, Total 0.1 mg/dL (0.1-1.0); Bun/Creatinine Ratio 10.3 (12.0-20.0); Calcium, Blood 7.7 mg/dL (8.5-10.1); Creatinine, Blood 6.81 mg/dL (0.60-1.20); Magnesium, Blood 2.5 mg/dL (1.6-2.4); Phosphorus, Blood 4.1 mg/dL (2.5-4.9); Potassium, Blood 3.7 mmol/L (3.5-5.5); Total Protein, Blood 4.5 g/dL (6.4-8.2)
--- NOTE | 2021-04-03 06:12 | NUR ---
PT BECOMES MORE VERBAL, AGITATED AND RESTLESS OVERNIGHT. HE DOES NOT FOLLOW COMMANDS, AND STRUGGLES AGAINST ANY CARE. HE MUMBLES AND THEN SOMETIMES VERY CLEARLY STATES THINGS LIKE, "LEAVE ME ALONE," OR GET IN HERE." NO OTHER SIGNIFICANT CHANGES NOTED. WILL CONTINUE TO MONITOR AND REPORT TO ONCOMING SHIFT.
--- NOTE | 2021-04-03 12:38 | NUR ---
TRANSFER TO PCU PT TRANSFERED TO PCU BED AND TAKEN TO DIALYSIS FOR TREATMENT. WAITING TO GIVE REPORT AT THIS TIME. PT TO GO TO PCU ROOM 11 AFTER DIALYSIS TREATMENT. ALL PT BELONGINGS TAKEN TO PCU ROOM 11.
--- NOTE | 2021-04-03 19:23 | NUR ---
SHIFT SUMMARY RECEIVED REPORT FROM RN WHILE PT IN DIALYSIS. PT TO ROOM APPROX 1530. PT ALERT, NOT ANSWERING QUESTIONS APPROPRIATELY, SPEECH IS GARBLES AND PT MUMBLE WORDS. PT IN BILATERAL WRIST RESTRAINTS. NO S/SX OF PAIN OF DISTRESS NOTED. NG TUBE IN PLACE, CONTINUEING TUBE FEEDING. NOEL PATENT AND DRAINING MINIMAL; DIALYSIS THIS AFTERNOON. VSS. NO OTHER ACUTE CHANGES NOTED. REPORT GIVEN TO ONCOMING RN.
[2021-04-04 04:13] LABS: Hemoglobin 10.2 g/dL (13.5-17.5)
[2021-04-04 04:27] LABS: Albumin, Blood 1.6 g/dL (3.4-5.0); Anion Gap 6 mmol/L (6-16); Blood Urea Nitrogen 54 mg/dL (8-24); Bun/Creatinine Ratio 9.9 (12.0-20.0); CO2, Blood 31 mmol/L (21-32); Calcium, Blood 7.8 mg/dL (8.5-10.1); Chloride, Blood 104 mmol/L (98-108); Creatinine, Blood 5.46 mg/dL (0.60-1.20); Glomerular Filtration Rate 10 (60-); Glucose, Blood 159 mg/dL (70-99); Magnesium, Blood 2.6 mg/dL (1.6-2.4); Phosphorus, Blood 3.7 mg/dL (2.5-4.9); Potassium, Blood 3.6 mmol/L (3.5-5.5); Sodium, Blood 141 mmol/L (136-145)
--- NOTE | 2021-04-04 06:38 | NUR ---
SHIFT SUMMARY PT ALERT, NOT ORIENTED. MUMBLES INCOHERENTLY. HAS RANDOM OUTBURSTS OF AGITATION/VERBAL ABUSE. SP02>92% ON RA. TELEMETRY SHOWS JUNCTIONAL RHYTHM, HR 50'S-100'S. PT HAS NG TUBE INFUSING CONTINUOUS TUBE FEED AT GOAL RATE. DURING THIS SHIFT, PT PULLED NG TUBE OUT WHILE IN SOFT WRIST RESTRAINTS. PT ABLE TO LOOSEN RESTRAINTS WITH STRENGTH. RESTRAINTS REPLACED WITH TOUGH CUFFS FOR STRENGTH. WHILE REPLACING NG TUBE, PT ATTEMPTED TO KICK STAFF. TOUGH CUFFS X4 APPLIED. PT STATES, "I'M GOING TO SPIT ON YOU" ATTEMPTS TO SPIT, SPUTUM CAUGHT BY YONKER AND SUCTIONED. NG TUBE VERIFIED BY XRAY. PT HAD ONE LARGE PASTY BM THIS SHFIT. C/D ATTENDS IN PLACE. NOEL CATHETER DRAINING TO GRAVITY. CALL LIGHT IN REACH.
--- NOTE | 2021-04-04 13:50 | NUR ---
Spiritual CAre Visit. Pt. was resting deeply and mostly unresponsive. I attempted to waken him bu twas unsuccessful. I will return and attempt to make a spiritual care visit.
--- NOTE | 2021-04-04 17:39 | NUR ---
Spiritual Care visit. Pt. was alert and in restraints. Pt. is unsettled by his hospitalization, but is not verbalizing clearly. Pt. verbalizes his desire to go home. Attempted to provide containment and a calming presence. Reported his verbalized needs to nursing staff.
--- NOTE | 2021-04-04 17:47 | NUR ---
SHFIT SUMMARY PT ALERT, UNABLE TO ANSWER QUESTIONS APPROPRIATELY. PT SPEECH GARBLED AND MUMBLES. THIS EVENING PT POINTS TO THE FLOOR AND STATES THERE IS THE ELK I KILLED. PT IRRITABLE THIS AM. PT TO DIALYSIS THIS AM, BACK TO ROOM THIS AFTERNOON, APPEARS TO BE SLEEPING INTERMITTENTLY. NO S/SX OF DISRESS NOTED T/O SHIFT. NG TUBE IN PLACE. TUBE FEEDING INFUSING PER ORDERS. VSS. NO OTHER ACUTE CHANGES NOTED DURING SHIFT. WILL CONTINUE TO MONITOR UNITL REPORT GIVEN TO ONCOMING RN.
[2021-04-05 03:31] LABS: Hematocrit 27.8 % (37.0-53.0); Hemoglobin 9.3 g/dL (13.5-17.5)
[2021-04-05 04:00] LABS: Albumin, Blood 1.4 g/dL (3.4-5.0); Anion Gap 3 mmol/L (6-16); Blood Urea Nitrogen 49 mg/dL (8-24); CO2, Blood 33 mmol/L (21-32); Calcium, Blood 7.9 mg/dL (8.5-10.1); Chloride, Blood 107 mmol/L (98-108); Creatinine, Blood 4.89 mg/dL (0.60-1.20); Glomerular Filtration Rate 12 (60-); Glucose, Blood 219 mg/dL (70-99); Magnesium, Blood 2.7 mg/dL (1.6-2.4); Phosphorus, Blood 4.1 mg/dL (2.5-4.9); Potassium, Blood 4.2 mmol/L (3.5-5.5); Sodium, Blood 143 mmol/L (136-145)
--- NOTE | 2021-04-05 17:27 | NUR ---
SHIFT SUMMARY PT HAS BEEN RESTING IN BED. PT HAS NAPPED TWICE FOR APPROXIMATELY ONE HOUR EACH TIME. PT HAS BEEN MUMBLING AND TALKING TO SELF FOR MOST OF THE DAY. WHEN CONVERSING WITH PT, THEY WILL MAKE NONSENSICAL STATEMENTS. PT REPLIES TO ORIENTATION QUESTIONS WITH NONSENSICAL STATEMENTS. PT ATTEMPTS TO HIT, KICK, OR BITE STAFF DURING CARES. REPEATEDLY ATTEMPTED TO PLACE PT IN TALAMANTES'S POSITION FOR TUBE FEEDING, PT WOULD IMMEDIATELY SLIDE SELF DOWN, OBTAINED ORDERS TO CHANGE FROM CONTINUOUS TO BOLUS FEED FOR PT SAFETY. VSS.
--- NOTE | 2021-04-05 17:35 | NUR ---
Spoke with Primary RN Maverick and RN Trish. Discussed case and concerns. Pt significantly confused and MD is considering the need for PEG Tube placement. Family may benefit from goals of care discussion and having family come in to see Pt for a meeting. Spoke with Dr Gay and discussed case. Called and spoke with Pt's spouse Rashi. Discussed the need for family to come in and discuss case with Dr Gay. Rashi reports having a conversation with Dr Gay and is requesting a second opinion and is requesting a different doctor to oversee Pt's care. She reports Dr Nieves suggested to her having neurology get involved in the case. After several conversations with Rashi it was decided to hold on family meeting for a few days. Rashi expresses appreciation. Palliative Care will remain available.
[2021-04-06 03:50] LABS: Hematocrit 28.8 % (37.0-53.0); Hemoglobin 9.3 g/dL (13.5-17.5)
[2021-04-06 04:22] LABS: Albumin, Blood 1.5 g/dL (3.4-5.0); Anion Gap 5 mmol/L (6-16); Blood Urea Nitrogen 65 mg/dL (8-24); Bun/Creatinine Ratio 11.1 (12.0-20.0); CO2, Blood 32 mmol/L (21-32); Chloride, Blood 107 mmol/L (98-108); Creatinine, Blood 5.87 mg/dL (0.60-1.20); Glomerular Filtration Rate 10 (60-); Glucose, Blood 54 mg/dL (70-99); Magnesium, Blood 2.9 mg/dL (1.6-2.4); Phosphorus, Blood 4.3 mg/dL (2.5-4.9); Potassium, Blood 3.7 mmol/L (3.5-5.5); Sodium, Blood 144 mmol/L (136-145)
--- NOTE | 2021-04-06 05:58 | NUR ---
SHIFT SUMMARY PT ALERT NOT ORIENTED. NOT FOLLOWING COMMANDS, COMBATIVE, PHYSICALLY AND VERBALLY AGRESSIVE. TAKES 3-4 PEOPLE TO ROLL/CHANGE PT ATTENDS. SP02>92% ON RA. TELEMETRY SHOWS SINUS/SINUS TACH, HR 70'S-100'S. PT HAS NOEL CATHETER DRAINING TO GRAVITY. ONE INCONTINENT LARGE SOFT BM THIS SHIFT. C/D ATTENDS IN PLACE. PT IS PASSING ALOT OF GAS. TUBE FEED BOLUS GIVEN PER ORDERS. ORAL DONE Q4H. PT Q6 CBG. MIDNIGHT CBG RESULTED IN 153. WITH MORNING LABS, GLUCOSE HAD DECREASED TO 54. CALL PLACED TO MD MORRISSEY. MD MORRISSEY W/ ORDERS FOR HYPOGLYCEMIA PROTOCOL/25 MLS D50.
--- NOTE | 2021-04-06 06:16 | NUR ---
PT UPDATE UPON CBG RECHECK, BLOOD GLUCOSE WAS 68. CALL PLACED TO MD MORRISSEY. MD MORRISSEY W/ ORDERS FOR D5 DRIP, SEE EMAR.
--- NOTE | 2021-04-06 10:47 | NUR ---
Ethics case review facilitated. Medical condition, prognostic factors, and advance care planning instrument discussed with palliative care and the assigned hospitalist. If the patient is clinically verified, via due diligence through two provider attestation and appropriate consultation to be in a terminal state, and there is a confirmed low probability that additional medical care will be non-beneficial in resolving his condition, then his directive stipulating the forgoing of life saving interventions, including nutrition and hydration by tube should be honored. Proceeding beyond these expressed preferences would constitute medical battery. Please see ORS 127.635 for further detail to this effect. Thank you for this consult. Jose Rafael Kevin ThD
--- NOTE | 2021-04-06 12:30 | NUR ---
Pt resting in bed and is in restraints. Pt is confused and engages in non sensical conversation. Mild anxiety noted. Spoke with Primary RN Maverick and discussed case. Spoke with Jose Rafael Kevin from Ethics and discussed case. Please see his note. Palliative Care will remain available.
--- NOTE | 2021-04-06 16:56 | NUR ---
SHIFT SUMMARY PT HAS BEEN RESTLESS, CONSTANTLY SHIFTING IN BED. PT HAS BEEN TALKING TO THEMSELF AND HAS BEEN HALLUCINATING ANOTHER PERSON OR PERSONS THAT THEY HAVE TALKED TO. WHEN ASKED QUESTIONS, PT WILL ANSWER WITH NONSENSICAL STATEMENTS. BLOOD PRESSURE HAS REMAINED STABLE IN THE 150'S EXCEPT DURING DIALYSIS WHICH SAW SPIKES TO 190 SBP. TEMPERATURE, PULSE, RESPIRATIONS, AND SPO2 HAVE ALL REMAINED STABLE. PT IS MOSTLY UNCOOPERATIVE WITH CARES AND WILL OCCAISIONALLY FOLLOW A COMMAND. PT ATTEMPTED TO KICK A STAFF MEMBER DURING CARES. PT WILL BE REPOSITIONED IN [place] AND WILL IMMEDIATELY BEGIN SCOOTING TOWARD THE FOOT OF THE BED UNTIL THEY ARE LAYING FLAT.
--- NOTE | 2021-04-07 05:44 | NUR ---
SHIFT SUMMARY: VS STABLE T/O SHIFT; SINUS RHYTHM. PATIENT AGITATED AND TALKING TO SELF T/O MOST OF SHIFT. PATIENT FELL ASLEEP AT 0530. TWO BMS THIS SHIFT - BOWEL CARE MEDS HELD. ONE TUBE FEEDING GIVEN. INSULIN HELD PATIENT NPO AND PLAN IS TO D/C FUTURE TUBE FEEDINGS. RESTRAINTS ASSESSED PER PROTOCOL - PATIENT TOLERATING WELL. ANSHUL POWERGLIDE FLUSHES WELL AND IS SALINE LOCKED. NO ADVERSE EVENTS THIS SHIFT. WILL CONTINUE TO MONITOR AND REPORT TO DAY RN.
--- NOTE | 2021-04-07 10:20 | NUR ---
Spoke with ST Romero and discussed case. ST recommendations are for a puree diet. Spoke with Dr Hunt and discussed case. Dr Hunt will call spouse today and provide update and discuss plan of care. Relayed spouse's request for Dr Hunt and Palliative Care to meet with family on Saturday. Dr Hunt is in agreement. Pt resting in bed and is in restraints. Primary JENNA Romero offering medications. Spoke with striper machine Gabe and discussed case. Palliative Care will remain available.
--- NOTE | 2021-04-07 10:53 | NUR ---
PATIENT ALERT TO SELF. ANSWERS "NO" TO MY OTHER ORIENTING QUESTIONS THIS AM. AT TIMES HARD TO UNDERSTAND. NONSENSICAL STATEMENTS AT TIMES. SPEECH THERAPY IN THIS AM, ABLE TO FOLLOW SIMPLE COMMANDS. NEW DIET ORDERED. MEDS CRUSHED IN APPLESAUCE. PATIENT TOLERATING PO DIET AND MEDS WELL THIS AM. NG TUBE REMAINS IN PLACE. CALLED DR. HOSKINS, WILL CONTINUE TO MOINTOR THIS AM AND RECHECK WHEN IS APPROPRIATE TO REMOVE NG TUBE. VITAL SIGNS STABLE. DENIES CHEST PAIN/PRESSURE. TELE SHOWING SINUS RHYTHM WITH HR 70'S. EDEMA NOTED TO BLE AND UPPER EXTREMITIES. DENIES ABDOMINAL PAIN/NAUSEA. ATTENDS IN PLACE WELL NOEL CATH DRAINING TO GRAVITY. NO DIALYSIS TODAY. DIALYSIS PORT TO RIGHT UPPER CHEST WALL. TUFF CUFF RESTRAINTS IN PLACE DUE TO SAFETY. SHARMAINE FROM PALLIATIVE CARE IN TO CHECK ON PATIENT THIS AM. POSSIBLE FAMILY MEETING PLAN FOR SATURDAY. THIAMINE INFUSING AT THIS TIME. WILL CONTINUE TO MONITOR.
--- NOTE | 2021-04-07 15:23 | NUR ---
Meeting with family in Pt's room with Dr Hunt, this PC RN, and Primary RN Heather. Dr uHnt provides update on Pt's prognosis and discusses current plan of care. Dr Hunt educates on disease process and answers questions. Dr Hunt D/C's NG and discusses plan moving forward. Discussed the importance of family consideration of Pt needing memory care. Discussed potential plan if Pt starts to decline. Family elects to keep Pt DNR. Family expresses appreciation and reports no other concerns at this time. Palliative Care will remain available.
--- NOTE | 2021-04-07 16:26 | NUR ---
UPDATE: FAMILY MEETING TODAY WITH DR. HOSKINS AND PALLIATIVE CARE. FAMILY VERY APPRECIATIVE OF DR. HOSKINS AND HIS TIME SPENT WITH THEM. PATIENT SITTING UPRIGHT AT THIS TIME, ALERT AND TALKING WITH FAMILY. DR. HOSKINS REMOVED NG TUBE. PATIENT ABLE TO STATE EACH FAMILY MEMBERS NAME AND RECOGNIZE THEM. PATIENT MORE COOPERATIVE AND LESS AGGITATED WITH FAMILY PRESENCE. VITAL SIGNS REMAIN STABLE. DENIES NEEDS AT THIS TIME.
--- NOTE | 2021-04-07 18:15 | NUR ---
PATIENT FAMILY REMAINS IN ROOM AFTER FAMILY MEETING. NO CHANGES IN MENTATION. MORE TALKATIVE AND AT TIMES VERY CONFUSING STATEMENTS. NO CHANGES IN TELE. REMAINS ON ROOM AIR. PATIENT COOPERATIVE AND CALM. RESTRAINTS OFF AT 1630. NO SIGNS OF PULLING AT LINES OR TRYING TO GET OUT OF BED. WATCHING TV CALMLY. COOPERATIVE WITH ATTENDS CHANGING. NOEL CATH REMAINS PATENT. TOLERATING PO DIET. ATE 50% OF DINNER AND DRINKING WATER. CALL LIGHT IN REACH. DENIES NEEDS AT THIS TIME. WILL CONTINUE TO MONITOR.
--- NOTE | 2021-04-08 05:19 | NUR ---
UPDATE: PATIENT WAS MOVED FROM [facility] TO [facility] AT THE BEGINNING OF THIS SHIFT SO HE COULD BE MONITORED BY CAMERA. MONITORS CALLED THIS RN AND TECH Q5-10 MIN FOR LINE PULLING AND ATTEMPTING TO GET OUT OF BED. BED ALARM WAS ALSO SET. THIS RN AND NADIA NOEL RN SPENT MORE THAN 4 HOURS COLLECTIVELY SITTING WITH PATIENT TRYING TO DISTRACT HIM AND KEEP HIM IN BED. SHORTLY BEFORE 0200 MONITORS CALLED THE BED ALARM WAS ALARMING AND THIS RN FOUND PATIENT STRADDLED ON RAILS. HIS CATHETER WAS PULLED TAUT BUT STILL INTACT. THIS RN AND GLIDING PILOT INSTRUCTOR GOT PATIENT RESITUATED IN BED AND BOOSTED HIM. MONITORS CALLED TO REQUEST RESTRAINTS BE PUT ON PATIENT "HE GOT IN THAT POSITION IN ONE FELL SWOOP AND WAS NEARLY ON THE FLOOR WHILE WE WERE STILL TRYING TO CALL." THIS RN SAT IN ROOM TO ENSURE PATIENT SAFETY. PATIENT THEN FLIPPED OVER ONTO KNEES AND STARTED CRAWLING TOWARDS HEAD OF BED. THIS RN WAS STANDING ON SIDE OF BED WHEN PATIENT SAT UP IN THE KNEELING POSITION AND THEN FELL PERPENDICULARLY ACROSS THE MIDDLE OF THE BED. THIS RN CAUGHT PATIENT'S HEAD AND SHOULDERS WITH HER BODY AND YELLED FOR HELP. WARD SUPERVISOR, TWO OTHER RNS, AND A TECH RAN IN TO HELP RESITUATE PATIENT. NOEL WAS STILL INTACT. PATIENT WAS PLACED IN CAPRI VEST, DR. Lori MORRISSEY APPROVED RESTRAINT ORDER, AND LATER AN ORDER FOR PRN ATIVAN WAS ACQUIRED PATIENT WAS STILL PULLING NOEL AND ATTEMPTING TO CRAWL OUT OF CAPRI VEST. PATIENT RECEIVED ATIVAN PER EMAR AND IS NOW RESTING COMFORTABLY IN BED. HAS BEEN
--- NOTE | 2021-04-08 05:31 | NUR ---
SHIFT SUMMARY: VS STABLE T/O SHIFT, PATIENT DENIES SOB AND CHEST PAIN. PATIENT PLEASANTLY CONFUSED AND COOPERATIVE AT BEGINNING OF SHIFT, BUT BECAME ANXIOUS AND BEGAN LINE PULLING AND HAD A NEAR FALL. SEE THIS RN'S PREVIOUS NOTE ON ADVERSE EVENT. PATIENT MEDICATED PER EMAR AND ON CAMERA FOR CLOSER MONITORING. WILL CONTINUE TO MONITOR AND REPORT TO ONCOMING RN.
[2021-04-08 06:10] LABS: Hematocrit 28.2 % (37.0-53.0); Hemoglobin 9.4 g/dL (13.5-17.5)
[2021-04-08 07:02] LABS: Albumin, Blood 1.5 g/dL (3.4-5.0); Anion Gap 6 mmol/L (6-16); Blood Urea Nitrogen 70 mg/dL (8-24); Bun/Creatinine Ratio 11.5 (12.0-20.0); CO2, Blood 30 mmol/L (21-32); Calcium, Blood 8.1 mg/dL (8.5-10.1); Chloride, Blood 109 mmol/L (98-108); Creatinine, Blood 6.09 mg/dL (0.60-1.20); Glomerular Filtration Rate 9 (60-); Glucose, Blood 71 mg/dL (70-99); Magnesium, Blood 3.2 mg/dL (1.6-2.4); Phosphorus, Blood 5.6 mg/dL (2.5-4.9); Potassium, Blood 3.8 mmol/L (3.5-5.5); Sodium, Blood 145 mmol/L (136-145)
--- NOTE | 2021-04-08 13:52 | NUR ---
PT TRANSITIONED TO MEDICAL STATUS WITH NO TELE. TRANSFERRED TO ROOM 350, REPORT GIVEN TO LILLY WEST. PT WAS LETHARGIC DURING SHIFT CHANGE THIS MORNING BARELY WAKING UP, OPENS EYES BUT FALLS BACK TO SLEEP, WILL RESPOND TO PAIN WITH GARBLED SPEECH. CBG WAS CRITICALLY LOW AT 40, D50 SYRINGE WAS GIVEN X1, CBG WENT UP TO 90, PT WAS ABLE TO TAKE ONLY FEW BITES OF BREAKFAST, TOOK MEDS WITH APPLESAUCE BUT STILL FALLING BACK TO SLEEP. CBG WAS MONITORED Q1HR STAYED ABOVE 70'S, PROVIDER IS AWARE, LONG ACTING INUSULIN HELD THIS AM, TO CONTINUE TO MONITOR CBG UNTIL PT WAS AWAKE ENOUGH TO EAT. DIALYSIS TX DONE THIS AM, PT MORE AWAKE AFTER DIALYSIS AGAIN TOOK ONLY FEW BITES OF LUNCH AND HAD ALMOST HALF OF THE ORANGE JUICE AND WENT BACK TO SLEEP. PROVIDER MADE AWARE AND WILL MAKE CHANGES ON INSULIN. PT REMAINS ON CAPRI VEST RESTRAINT FOR SAFETY. PERMACATH ON RIGHT UPPER CHEST INTACT AND DRESSED, POWERGLIDE FLUSHING PATENT WTIH GOOD BLOOD RETURN, NOEL DRAINING VIA GRAVITY. NO OTHER ISSUES ENCOUNTERED FOR THE SHIFT
--- NOTE | 2021-04-08 16:46 | NUR ---
PT IS ALERT ORIENTED TO SELF ONLY AT THIS TIME. THE PT HAS BEEN MOSTLY SLEEPING ON AND OFF SINCE HIS ARRIVAL TO THE MEDICAL FLOOR AROUND 1330, PT GETS AGITATEDED WHEN POSITIONED OR GIVEN CARE. PT APPEARS TO BE BREATHING EASILY ON RA AT THIS TIME. PT IS IN VEST RESTRAINT FOR IMPULSIVENESS. CALL LIGHT IN REACH WILL CONTINUE TO MONITOR AND ASSESS FOR CHANGES
--- NOTE | 2021-04-08 22:53 | NUR ---
PT BEING COMBATIVE WITH STAFF AND NOT FOLLOWING DIRECTIONS. REFUSING TO TAKE NIGHT MEDICATIONS AND IS CUSSING AT ME. PT TUGGING AT HIS NOEL REPEATEDLY AND DOES NOT LET GO WHEN ASKED TO. HE IS CONTINUALLY TRYING TO CLIMB OUT OF BED SAYING "I HAVE TO LEAVE". PT ALERT AND ORIENTED TO SELF ONLY. ORDER OBTAINED FOR FOUR BED RAILS, CAPRI, AND BILATERAL SOFT WRIST RESTRAINTS. PT GIVEN 1 MG OF IV ATIVAN WITH SOME IMPROVEMENT, THOUGH PT STILL COMBATIVE AND UNCOOPERATIVE. HE CONTINUES TO PULL AT RESTRAINTS AND HIS NOEL. HOSPITALIST CONTACTED AND ORDER FOR 10 MG OF IM GEODON OBTAINED AND ADMINISTERED. PT IS CURRENTLY SNORING WITH INTERMITTENT MOVING OF HIS LEGS. WILL CONTINUE TO MONITOR.
--- NOTE | 2021-04-09 04:33 | NUR ---
VACUUM CLEANER REPAIRER SUMMARY PT WAS ADMITTED FOR HYPERKALEMIA - RESOLVED. PT IS A DNR. HE IS ALERT AND ORIENTED TO SELF ONLY. PT WAS COMBATIVE WITH ME AT THE START OF THE SHIFT AND WAS PULLING AT HIS NOEL AND POWERGLIDE. PT WAS NOT EASILY REDIRECTABLE AND BEGAN CUSSING AT STAFF. ORDER WAS OBTAINED FOR RESTRAINTS AND PT WAS MEDICATED PER MAY. HE DID NOT TAKE HIS ORAL HS MEDICATIONS. PT HAS BEEN SLEEPING THROUGHOUT THE SHIFT AFTER IM GEODON AND IV ATIVAN. HE REPOSITIONS HIS FEET REGULARLY BUT IS NO LONGER PULLING AT LINES.
[2021-04-09 06:14] LABS: Hematocrit 29.4 % (37.0-53.0); Hemoglobin 9.9 g/dL (13.5-17.5)
[2021-04-09 06:34] LABS: Albumin, Blood 1.3 g/dL (3.4-5.0); Anion Gap 6 mmol/L (6-16); Blood Urea Nitrogen 53 mg/dL (8-24); Bun/Creatinine Ratio 9.9 (12.0-20.0); CO2, Blood 29 mmol/L (21-32); Calcium, Blood 7.5 mg/dL (8.5-10.1); Chloride, Blood 105 mmol/L (98-108); Creatinine, Blood 5.35 mg/dL (0.60-1.20); Glomerular Filtration Rate 11 (60-); Glucose, Blood 213 mg/dL (70-99); Magnesium, Blood 2.8 mg/dL (1.6-2.4); Phosphorus, Blood 5.9 mg/dL (2.5-4.9); Potassium, Blood 4.2 mmol/L (3.5-5.5); Sodium, Blood 140 mmol/L (136-145)
--- NOTE | 2021-04-09 14:59 | NUR ---
Patient is on completed bedrest with restraint intact, patient was reposition Q2h and offered toiling/hydration. patient Rashi was updated on plan of care and all questions was answered, Patient was inform to call when any concerns and new question arise. patient in no acute distress.
--- NOTE | 2021-04-10 06:48 | NUR ---
Shift Summary Patient in no acute distress. Sleeping throughout the shift. He is still on restraing. Hydration + repositioning provided. We are monitoring patient for any acute changes.
[2021-04-10 07:52] LABS: Hematocrit 27.5 % (37.0-53.0); Hemoglobin 9.1 g/dL (13.5-17.5)
[2021-04-10 08:00] LABS: Albumin, Blood 1.2 g/dL (3.4-5.0); Anion Gap 15 mmol/L (6-16); Blood Urea Nitrogen 77 mg/dL (8-24); CO2, Blood 22 mmol/L (21-32); Calcium, Blood 7.8 mg/dL (8.5-10.1); Chloride, Blood 101 mmol/L (98-108); Creatinine, Blood 6.44 mg/dL (0.60-1.20); Glomerular Filtration Rate 9 (60-); Glucose, Blood 420 mg/dL (70-99); Potassium, Blood 5.7 mmol/L (3.5-5.5); Sodium, Blood 138 mmol/L (136-145)
[2021-04-10 08:22] LABS: Phosphorus, Blood 8.2 mg/dL (2.5-4.9)
--- NOTE | 2021-04-10 12:12 | NUR ---
DIALYSIS INCREASED TIME FROM 2.5 HRS TO 3.0 HRS DUE TO LOW BFR. WHEN THE PT TOOK REALLY LARGE BREATHS OR MOVED HIS CHEST IN CERTAIN WAYS IT WOULD CAUSE THE ART ALARM. HAD TO RUN IT AT 250 TO KEEP FROM ALARMING. CLEANED AND CHANGED THE DRESSING. SITE CLEAR. \
--- NOTE | 2021-04-10 18:48 | NUR ---
SHIFT SUMMARY PT REMAINS IN RESTRAINTS AND HAS BEEN ASLEEP FOR THE VAST MAJORITY OF THE DAY. HE HAD A CH PHOSPHORUS VALUE THIS AM BUT RECEIVED DIALYSIS. PT WAS ABLE TO WAKE UP FOR A SHORT AMOUNT OF TIME IN ORDER TO EAT SOME YOGURT AND BE EVALUATED BY SPEECH THERAPY. DUE TO THE PATIENT NOT BEING ABLE TO STAY AWAKE HIS ORAL MEDICATIONS HAVE BEEN HELD THIS SHIFT. TO THE BEDSIDE SIDE THIS SHIFT. NOEL DRAINING DARK RED URINE. WILL REPORT TO [facility].
--- NOTE | 2021-04-11 03:15 | NUR ---
Shift Summary Patient remaining asleep through the shift. He does not take anything PO. PATIENT Blood sugar check at midnight was 67. Dr. Shields called and ordered Dextrose. With order to call him back after recheking the blood sugar in 30 minutes. Result came back 97. Patient still in observation since we are unable to wake him up. Continue with monitoring patient for any acute changes.
[2021-04-11 05:19] LABS: BASOPHILS ABSOLUTE AUTO 0.02 K/mm3 (0.00-0.23); BASOPHILS PERCENT AUTO 0 % (0-2); EOSINOPHILS ABSOLUTE AUTO 0.32 K/mm3 (0.00-0.68); EOSINOPHILS PERCENT AUTO 2 % (0-6); Hematocrit 29.4 % (37.0-53.0); Hemoglobin 9.3 g/dL (13.5-17.5); IMMATURE GRAN PERCENT AUTO 1 % (0-1); LYMPHOCYTES ABSOLUTE AUTO 1.34 K/mm3 (0.84-5.20); LYMPHOCYTES PERCENT AUTO 7 % (21-46); MONOCYTES ABSOLUTE AUTO 1.08 K/mm3 (0.16-1.47); MONOCYTES PERCENT AUTO 6 % (4-13); Mean Corpuscular HGB 30.8 pg (26.0-34.0); Mean Corpuscular HGB Conc 31.6 g/dL (31.5-36.5); Mean Corpuscular Volume 97 fL (80-100); Mean Platelet Volume 9.6 fL (9.1-12.4); NEUTROPHILS ABSOLUTE AUTO 16.71 K/mm3 (1.96-9.15); NEUTROPHILS PERCENT AUTO 86 % (41-73); Platelet Count 243 K/mm3 (150-400); RDW Coefficient Variation 13.8 % (11.7-14.2); RDW Standard Deviation 47.4 fL (35.1-46.3); Red Blood Cell Count 3.02 M/mm3 (4.30-5.90); White Blood Cell Count 19.57 K/mm3 (4.00-11.30)
[2021-04-11 06:00] LABS: Albumin, Blood 1.2 g/dL (3.4-5.0); Anion Gap 5 mmol/L (6-16); Blood Urea Nitrogen 55 mg/dL (8-24); CO2, Blood 31 mmol/L (21-32); Calcium, Blood 7.6 mg/dL (8.5-10.1); Chloride, Blood 108 mmol/L (98-108); Creatinine, Blood 5.48 mg/dL (0.60-1.20); Glomerular Filtration Rate 10 (60-); Glucose, Blood 141 mg/dL (70-99); Magnesium, Blood 2.8 mg/dL (1.6-2.4); Phosphorus, Blood 6.1 mg/dL (2.5-4.9); Potassium, Blood 4.2 mmol/L (3.5-5.5); Sodium, Blood 144 mmol/L (136-145)
--- NOTE | 2021-04-11 10:20 | NUR ---
Received call from Pt's spouse Rashi. Offered therapeutic listening as Rashi reports Pt was significantly somnolent yesterday. She requested for this RN to visit Pt today and provide my thoughts. Pt resting in bed with his eyes closed. Pt wakes to moderate verbal stimuli and gentle touch. Pt is A&O to self and family only. Pt denies pain and dyspnea at this time. Pt remains in restraints. Spoke with Primary RN More and discussed case. Pt's urine appears more clear today. Pt refused his breakfast this AM. Plan: Will call spouse this afternoon after lunch has been offered.
--- NOTE | 2021-04-11 16:48 | NUR ---
Spiritual Care visit. Pt. is conscious and in restraints. Spouse is present. After initial greetings the spouse respectfully declined spiritual care.
--- NOTE | 2021-04-11 18:31 | NUR ---
SHIFT SUMMARY PT REMAINS VERY CONFUSED THIS SHIFT. THIS AM HE WAS CALM AND PHYSICIAN DECIDED TO TRIAL HIM OUT OF WRIST RESTRAINTS. WITHIN MINUTES PATIENT WAS GETTING OUT OF BED, UNDOING HIS RESTRAINTS AND WAS ALMOST ON THE FLOOR. PT'S BEHAVIOR HAS BEEN ESCALATING STEADILY T/O THE DAY. PT BEGAN TO ALSO KICK AND WAS ABLE TO GET OUT OF RESTRAINTS AND WAS KICKING STAFF. 4 POINT RESTRAINTS WERE THEN APPLIED. CAME TO BEDSIDE AND WAS ABLE TO COMFORT PT SOME BUT HE STILL REMAINS AGITATED AT TIMES. VSS. WILL REPORT TO NOC RN.
--- NOTE | 2021-04-12 05:11 | NUR ---
Patient more awake tonight. He was offered some food that he spit out. Trying to get out his restrains. Became more agitated when spoken too. No acute changes noted. We will continue to monitor patient.
--- NOTE | 2021-04-12 18:41 | NUR ---
PATIENT SLEPT THROUGH BREAKFAST AND LUNCH TODAY AND HAD DIALYSIS. VSS, ON 4LO2 TO MAINTAIN SATS. REMAINS IN 4 POINT RESTRAINTS, 4 BED RAILS AND CAPRI VEST TO PROTECT PATIENT AND LINES. CT SCAN ORDERED, BUT GOT MOVED UNTIL TOMORROW DUE TO AGITATION. SEROQUEL GIVEN X1 AND DID HELP PATIENT CALM DOWN. AT BEDSIDE THIS EVENING AND HE DID EAT SOME DINNER. POWERGLIDE TO R ARM WNL AND SL. DENIES ANY PAIN. A/O TO SELF AND FAMILY ONLY, DIFFICULTY FOLLOWING COMMANDS. NOEL TO GRAVITY.
--- NOTE | 2021-04-13 03:56 | NUR ---
Pt has been asleep most of the night. When he did wake up a few times, he was a confuse and was pulling his restraints. He did not want to take his night medications but was able to convince him to take his seroquel. Pt is not oriented. He can follow commands like swallow but his words are not always coherent. Dixon catheter is placed in gravity, below kidneys and off the floor. Repositioning completed several times tonight. Restraint assessment Q2 completed. bed in lowest position. bed alarm on.
[2021-04-13 05:45] LABS: BASOPHILS ABSOLUTE AUTO 0.04 K/mm3 (0.00-0.23); BASOPHILS PERCENT AUTO 0 % (0-2); EOSINOPHILS ABSOLUTE AUTO 0.48 K/mm3 (0.00-0.68); EOSINOPHILS PERCENT AUTO 5 % (0-6); Hematocrit 27.3 % (37.0-53.0); IMMATURE GRAN ABSOLUTE AUTO 0.03 K/mm3 (0.00-0.10); IMMATURE GRAN PERCENT AUTO 0 % (0-1); LYMPHOCYTES ABSOLUTE AUTO 1.53 K/mm3 (0.84-5.20); LYMPHOCYTES PERCENT AUTO 15 % (21-46); MONOCYTES ABSOLUTE AUTO 0.92 K/mm3 (0.16-1.47); MONOCYTES PERCENT AUTO 9 % (4-13); Mean Corpuscular HGB 31.7 pg (26.0-34.0); Mean Corpuscular Volume 96 fL (80-100); Mean Platelet Volume 9.8 fL (9.1-12.4); NEUTROPHILS PERCENT AUTO 71 % (41-73); Platelet Count 180 K/mm3 (150-400); RDW Coefficient Variation 13.2 % (11.7-14.2); RDW Standard Deviation 46.1 fL (35.1-46.3); Red Blood Cell Count 2.84 M/mm3 (4.30-5.90)
[2021-04-13 06:07] LABS: Albumin, Blood 1.1 g/dL (3.4-5.0); Albumin/Globulin Ratio 0.3 (0.8-1.8); Bilirubin, Total 0.3 mg/dL (0.1-1.0); Bun/Creatinine Ratio 9.9 (12.0-20.0); Calcium, Blood 7.4 mg/dL (8.5-10.1); Creatinine, Blood 5.56 mg/dL (0.60-1.20); Globulin, Blood 3.2 g/dL (2.2-4.0); Phosphorus, Blood 5.2 mg/dL (2.5-4.9); Potassium, Blood 3.9 mmol/L (3.5-5.5); Total Protein, Blood 4.3 g/dL (6.4-8.2)
--- NOTE | 2021-04-13 14:56 | NUR ---
Pt resting in bed and is awake. Pt attempts conversation and manages to mumbles a couple of uninteligable words. Pt appears comfortable with no S/S of distress. Assisted Primary RN Carlene in repositioning Pt in bed. Pt remains in CAPRI and upper extremity soft restraints. Carlene reports Pt appears in a better mood today. No new concerns reported at this time. Palliative Care will remain available.
--- NOTE | 2021-04-13 17:43 | NUR ---
PATIENT HAD A BETTER DAY TODAY. MUCH MORE ALERT AND REDIRECTABLE. VSS, MAINTAINING SATS ON RA. 2LO2 AT NOC. PATIENT ATE BETTER TODAY AND WAS ABLE TO TAKE HIS MEDICATIONS. ABLE TO ANSWER SOME YES/NO QUESTIONS. SKIN INTACT. REMAINS IN WRIST RESTRAINTS AND CAPRI. NOEL TO GRAVITY, WITH GOOD OUTPUT THIS SHIFT. AT BEDSIDE THIS EVENING AND ASSISTED WITH CARE AND FED HIM DINNER. NO NEW CONCERNS THIS SHIFT.
[2021-04-14 06:36] LABS: Hematocrit 31.5 % (37.0-53.0); Hemoglobin 10.4 g/dL (13.5-17.5)
[2021-04-14 09:14] LABS: Free Thyroxine 0.75 ng/dL (0.70-1.60); Thyroid Stimulating Hormone 6.55 uIU/mL (0.360-4.800)
--- NOTE | 2021-04-14 18:45 | NUR ---
PATIENT IS IN RESTRAINTS. A NEW ORDER IS NEEDED THIS EVINING. WAITING FOR PROVIDER TO CALL BACK. PATIENT HAS BEEN DISORIENTATED THROUGH OUT THIS SHIFT. HE WAKES FOR BRIEF MOMENTS AND THEN GOES RIGHT BACK TO SLEEP. HE HAS A NOEL IN PLACE THAT IS PATENT. HIS CMS IS GOOD, AND THE PATIENTS RESTRAINTS ARE MONITORED FOR FIT FREQUENTLY.
[2021-04-15 04:46] LABS: Hematocrit 26.9 % (37.0-53.0)
[2021-04-15 05:10] LABS: Albumin, Blood 1.1 g/dL (3.4-5.0); Anion Gap 8 mmol/L (6-16); Blood Urea Nitrogen 56 mg/dL (8-24); Bun/Creatinine Ratio 9.8 (12.0-20.0); CO2, Blood 30 mmol/L (21-32); Calcium, Blood 7.3 mg/dL (8.5-10.1); Chloride, Blood 102 mmol/L (98-108); Creatinine, Blood 5.71 mg/dL (0.60-1.20); Glomerular Filtration Rate 10 (60-); Glucose, Blood 263 mg/dL (70-99); Phosphorus, Blood 4.8 mg/dL (2.5-4.9); Potassium, Blood 4.2 mmol/L (3.5-5.5); Sodium, Blood 140 mmol/L (136-145)
[2021-04-15 08:11] LABS: HBSAG SCREEN Negative (Negative)
--- NOTE | 2021-04-15 18:54 | NUR ---
SHIFT SUMMARY- PT ALERT TO SELF AND SPOUSE, CURRENTLY AWAKE. DURING SHIFT REPORT THE PT HAD PULLED HIMSELF TO THE FOOT OF THE BED AND HAD THE CAPRI AROUND HIS ARM PITS AND NECK. PT WAS REPOSITIONED, COMBATIVE WITH STAFF, CONFUSED AND SPEAKING NONSENSICALLY. NIGHT RN ADMINISTERED ATIVAN DURING REPORT, PT WAS ESCALATING FAST. PT POSITIONED SAFELY IN BED, ATTENDS CHANGED, NOEL HIDDEN FROM THE PT REACH AND WRIST RESTRAINTS WERE READJUSTED. PT SEEMED TO BE RELAXING AFTER THE ATIVAN. BEDSIDE REPORT COMPLETED.
--- NOTE | 2021-04-16 06:01 | NUR ---
Pt is alert but very confuse. He is impulsive and keeps trying to pull his sanders cathether. When he awoke last night, he became agitated and combative. medicated pt per PRN medication. He is not redirectable. He mumbles and is incoherent with his words. q2 charting for restraints completed. restraints renewed for bilateral upper extremities, vest and 4 side rails up. bed alarm on. pt is now calmly sleeping, but still manages to keep pulling his sanders catheter unconsciously. repositioning done and restraint skin assessment completed. no signs of skin breakdown from restraints. call light within reach.
[2021-04-16 06:35] LABS: Hematocrit 28.8 % (37.0-53.0); Hemoglobin 9.4 g/dL (13.5-17.5)
[2021-04-16 07:01] LABS: Albumin, Blood 1.3 g/dL (3.4-5.0); Anion Gap 10 mmol/L (6-16); Blood Urea Nitrogen 74 mg/dL (8-24); Bun/Creatinine Ratio 10.6 (12.0-20.0); CO2, Blood 29 mmol/L (21-32); Calcium, Blood 7.5 mg/dL (8.5-10.1); Chloride, Blood 99 mmol/L (98-108); Glomerular Filtration Rate 8 (60-); Glucose, Blood 535 mg/dL (70-99); Phosphorus, Blood 6.5 mg/dL (2.5-4.9); Potassium, Blood 4.7 mmol/L (3.5-5.5); Sodium, Blood 138 mmol/L (136-145)
--- NOTE | 2021-04-16 08:25 | NUR ---
CALLED DR JOSEPH- PT BG WAS 461 ON MORNING [address] TESTING. DR JOSEPH IS AWARE AND OK FOR PT TO RECIEVE HS DOSING OF HUMALOG PT IS CURRENTLY OBTUNDED D/T AGITATION T/O THE NIGHT, PRN MEDICATIONS MADE HIM SLEEPY THIS MORNING. DR AWARE OF THAT WELL. WILL MEDICATE WITH 4 UNITS OF HUMALOG.
--- NOTE | 2021-04-16 12:00 | NUR ---
PT RETURNED FROM DIALYSIS SOMNOLENT. MOUTH WIDE OPEN IF HE WERE SLEEPING, EYES OPEN AND TRACKING STAFF. VEWS SCORE 4 RESP RATE 25 ACCESSORY MUSCLE USE NOTED. CALLED DR JOSEPH WHO CAME TO THE BEDSIDE TO EVALUATE THE PT. SPOUSE AT THE BEDSIDE, HAD ARRIVED TO FEED THE PT LUNCH. PT TO OBTUNDED TO RECOGNIZE HER OR EAT, SPOUSE LEFT AND WILL COME BACK AT DINNER TIME WHEN THE PT USUALLY WAKES UP. PT HAS [facility] HOME CPAP AT THE BEDSIDE HOWEVER D/T RESTRAINTS, WHICH ARE NEEDED TO PROTECT THE PT PERMACATH, IV AND NOEL, HE IS UNABLE TO REMOVE THE CPAP IF HE SHOULD VOMIT SO HE CAN NOT WEAR IT AT THIS TIME. O2 PLACED IN PT OPEN MOUTH WHILE HE IS ASLEEP. SATS 93% ON 3L. DR AWARE OF THIS, NO NEW ORDERS AT THIS TIME. SPOKE WITH RT HOB ELEVATED PER RECOMENDATION.
--- NOTE | 2021-04-16 19:28 | NUR ---
SHIFT SUMMARY- CONTINUED TO DOSE THE PT WITH THE HS DOSING FOR INSULIN DIRECTED BY DR JOSEPH. PT HAS BEEN SLEEPING HARD AND NOT ABLE TO BE WOKE AT ALL FOR MEALS (DR AVERY). PT PULLS AT O2 TUBES AND CATHETER, TRIES TO GET TO HIS IV LINE AND PERMACATH WELL WHEN NOT RESTRAINED. DR AVERY AND PT REMAINS IN CAPRI VEST, SOFT WRIST AND 4 SIDE RAILS FOR RESTRAINT. WHEN HE WAKES HE BECOMES AGITATED AND COMBATIVE. ROM EXERCISES DONE Q2. THIS EVENING ATTENDS WERE CHANGED, PT HAS PAJAMA PANTS ON TIED BACKWARDS TO SLOW HIS ABILITY TO GET TO THE CATHETER TUBING. PLACED A NEW STAT LOC TODAY THE PT REMOVED THE OLD ONE. PT SEEMS TO BE OPENING HIS EYES MORE AT SHIFT CHANGE. NIGHT RN AWARE. PT SPOUSE CAME IN AT LUNCH TIME AND AGAIN AT DINNER TO WAKE HIM AND FEED HIM, WE WERE UNABLE TO WAKE HIM FOR EITHER MEAL. PT USUALLY WILL EAT FOR HER WHERE HE WILL NOT EAT FOR STAFF. SPOUSE COMES IN FOR THE MEAL TIMES. PASSED ON TO NIGHT RN IN REPORT.
--- NOTE | 2021-04-17 04:55 | NUR ---
During the start of shift, pt was sleeping but still tries to pull his sanders cather as he is starting to wake up. He became very agitated towards the staff. He put his legs in between the side rails and trying to rip off his wrist restraints. We repositioned him and redirected him to take his night medications with applesauce, but patient decided to spit all the medications and applesauc towards the RN. He was very agitated. Administered ativan per PRN order. Patient started to fall asleep and relax after an hour. Oxygen 2L NC on. Patient is provided perineal and sanders catheter care. Q2 restraints assesment completed. Bed alarm in lowest position. bed alarm on. pt is camera monitored.
[2021-04-17 05:37] LABS: Hemoglobin 9.2 g/dL (13.5-17.5)
[2021-04-17 05:59] LABS: Albumin, Blood 1.3 g/dL (3.4-5.0); Anion Gap 6 mmol/L (6-16); Blood Urea Nitrogen 58 mg/dL (8-24); Bun/Creatinine Ratio 9.9 (12.0-20.0); CO2, Blood 33 mmol/L (21-32); Calcium, Blood 7.6 mg/dL (8.5-10.1); Chloride, Blood 105 mmol/L (98-108); Creatinine, Blood 5.86 mg/dL (0.60-1.20); Glomerular Filtration Rate 10 (60-); Glucose, Blood 165 mg/dL (70-99); Phosphorus, Blood 5.5 mg/dL (2.5-4.9); Potassium, Blood 4.2 mmol/L (3.5-5.5); Sodium, Blood 144 mmol/L (136-145)
--- NOTE | 2021-04-17 17:23 | NUR ---
SHIFT SUMMARY PATIENT IS ALERT THIS EVENING ENOUGH TO EAT DINNER AT BEDIDE. PATIENT HAS BEEN SLEEPING MOST OF THIS SHIFT. SPOUSE IS AT BEDSIDE ASSISTING WITH CARE. PATIENT RECEIVED IV MEDS THIS SHIFT. PT HAS NOT BEEN AWAKE ENOUGH TO TAKE PO MEDS UNTIL NOW. PATIENT NEEDS QUEING WHILE EATING. COVERAGE FOR INSULIN GIVEN X2 THIS SHIFT. VSS. THIS NURSE WILL CONTINUE TO CARE FOR THE PATIENT UNITL SHIFT REPORT IS GIVEN TO ONCOMING NURSE.
[2021-04-18 05:26] LABS: Hemoglobin 9.4 g/dL (13.5-17.5)
[2021-04-18 05:45] LABS: Albumin, Blood 1.2 g/dL (3.4-5.0); Anion Gap 9 mmol/L (6-16); Blood Urea Nitrogen 80 mg/dL (8-24); Bun/Creatinine Ratio 11.8 (12.0-20.0); CO2, Blood 29 mmol/L (21-32); Calcium, Blood 7.8 mg/dL (8.5-10.1); Chloride, Blood 103 mmol/L (98-108); Creatinine, Blood 6.76 mg/dL (0.60-1.20); Glomerular Filtration Rate 8 (60-); Glucose, Blood 455 mg/dL (70-99); Phosphorus, Blood 7.1 mg/dL (2.5-4.9); Potassium, Blood 4.4 mmol/L (3.5-5.5); Sodium, Blood 141 mmol/L (136-145)
--- NOTE | 2021-04-18 05:59 | NUR ---
Patient is sleeping during beginning of shift. He did not have his restraints off, RN in dayshift was assessing how well he does without them. I reassesed patient and he was sleeping, but after 8pm, patient woke up and became agitated. He was trying to slide down off the bed and puts his foot in between the railings. He also tries pulling his sanders catheter. RN and TECHNOLOGY TRAINER placed his wrist restraints back. q2 restraint assessment done. patient has O2 2L. He is hard to redirect. He is oriented to self. Assist patient in turning every 2 hours to relieve pressure from his buttocks. Call light within reach.
--- NOTE | 2021-04-18 17:45 | NUR ---
SUMMARY PT RESTING IN BED, FAMILY AT THE BEDSIDE, MEETING HELD WITH DR CHANEY AND PALLIATIVE CARE RN, FAMILY TO MEET AGAIN TOMORROW WITH AND RN, PT HAD DIALYSIS TODAY, PT GOES BETWEEN ASLEEP AND AGITATED, PULLS AT CATHETER IF HE CAN REACH IT, PT IS DISORIENTED AND DOES NOT REORIENT, VSS, WILL CONT TO MONITOR
--- NOTE | 2021-04-18 17:48 | NUR ---
Joint visit with Pt, Dr Bunch, Pt's son, Pt's daughter, and Pt's spouse. Dr Bunch provides update, discusses current plan of care, discusses prognosis, and options. Comfort Care and hospice discussed as an option. Therapeutic listening and questions answered. Family report they would like time to discuss and consider what Pt would want. Family expresses appreciation and plan will be to meet with family tomorrow at 1500. Spoke with Medical Floor Clinical Coordinator Fanny, putter in [place]. Both are in agreement with allowing family back in tomorrow to discuss further regarding goals of care. Palliative Care will remain available for supportive and therapeutic listening.
--- NOTE | 2021-04-18 20:32 | NUR ---
PT APPEARS COMFORTABLE AND SETTLED AT THIS TIME W/CAPRI VEST, SOFT MITS AND X4 RAILS IN PLACE. HE WAS WAKEFUL TO VOICE AND PLEASANT W/MINIMAL VERBAL INTERACTION BUT REFUSED BITES OF PUDDING AND APPLESAUCE AT THIS TIME. STAFF INQUIRED WHEHTER HE'D BE WILLING TO TAKE HS MEDS BUT HE SHOOK HIS HEAD NO DESPITE ENCOURAGEMENT. MEDS HELD AT THIS TIME BUT WILL ATTEMPT AGAIN LATER IF PT IS AGREEABLE TO PO INTAKE.
--- NOTE | 2021-04-18 22:00 | NUR ---
NEW RESTRAINT RX W/MITTS ADDED: PT AWOKE MUCH MORE AGGITATED AND PULLING AT LINES AND RESTRAINTS. HE HAD CAPRI VEST UP AROUND HEAD, HAD TURNED OVER IN BED AND REMOVED X1 WRIST RESTRAINT. BED ALARM WAS SOUNDING AND PT DIFFICULT TO REDIRECT. X3 STAFF REPOSITIONED PT IN BED, SECURED RESTRAINTS APPROPRIATELY AGAIN AND APPLIED MITTS FOR ADDITIONAL SAFETY. SEROQUEL PRN RECIEVED CRUSHED IN APPLESAUCE BUT THIS RN WAS UNABLE TO PROVIDE ANY ADDITIONAL MEDS D/T PT ATTEMPTING TO SPIT THEM OUT. CAMERA MONITORING CONTINUES AND WCTM CLOSELY.
--- NOTE | 2021-04-19 05:22 | NUR ---
SUMMARY: PT A/O TO SELF ONLY BUT IS AWARE OF FAMILY WHEN PRESENT AT BEDSIDE. MOOD CONT'S LABILE AND HE SEEMS TO SLEEP W/O S/S DISTRESS OR AWAKE CONFUSED AND AGGITATED. HE REMAINS VERY IMPULSIVE, PULLING AT LINES, NOEL CATHETER, RESTRAINTS AND PERMCATH WA. HE'S VERY DIFFICULT TO REDIRECT BUT CALMS SLIGHTLY W/STAFF REITERATION OF INSTRUCTIONS. BED ALARM, CAPRI VEST, BILAT SOFT WRIST RESTRAINTS, MITTS AND X4 RAILS IN PLACE FOR PT SAFETY AND PROTECTION OF LINES. HE REFUSED PO INTAKE AND HS MEDS DESPITE ENCOURAGEMENT BUT INSULIN AND TOPICAL POWDER RECIEVED PER EMAR. THIS RN WAS ABLE TO SAFELY GIVE X1 DOSE OF PRN SEROQUEL CRUSHED IN A COUPLE BITES OF PUDDING BEFORE HE BEGAN SPITTING OUT FOOD. MED SEEMED AFFECTIVE AT CALMING PT AND PROMOTING SLEEP REST. NOEL IS PATENT/DRAINING AND TURN SCHEDULE MAINTAINED FOR SBD PREVENTION. NO ACUTE CHANGES, VSS/AFEBRILE. FAMILY PLANS TO MEET AGAIN W/PALLAIATIV CARE AND MD TODAY. WCROBERT AND REPORT TO DAY RN.
[2021-04-19 05:32] LABS: BASOPHILS ABSOLUTE AUTO 0.01 K/mm3 (0.00-0.23); BASOPHILS PERCENT AUTO 0 % (0-2); EOSINOPHILS ABSOLUTE AUTO 0.11 K/mm3 (0.00-0.68); EOSINOPHILS PERCENT AUTO 1 % (0-6); Hematocrit 30.3 % (37.0-53.0); Hemoglobin 9.6 g/dL (13.5-17.5); IMMATURE GRAN ABSOLUTE AUTO 0.04 K/mm3 (0.00-0.10); IMMATURE GRAN PERCENT AUTO 0 % (0-1); LYMPHOCYTES PERCENT AUTO 13 % (21-46); MONOCYTES ABSOLUTE AUTO 0.86 K/mm3 (0.16-1.47); MONOCYTES PERCENT AUTO 6 % (4-13); Mean Corpuscular HGB 30.9 pg (26.0-34.0); Mean Corpuscular HGB Conc 31.7 g/dL (31.5-36.5); Mean Corpuscular Volume 97 fL (80-100); Mean Platelet Volume 10.3 fL (9.1-12.4); NEUTROPHILS ABSOLUTE AUTO 11.55 K/mm3 (1.96-9.15); NEUTROPHILS PERCENT AUTO 80 % (41-73); Platelet Count 205 K/mm3 (150-400); RDW Coefficient Variation 13.5 % (11.7-14.2); RDW Standard Deviation 46.9 fL (35.1-46.3); Red Blood Cell Count 3.11 M/mm3 (4.30-5.90); White Blood Cell Count 14.37 K/mm3 (4.00-11.30)
[2021-04-19 05:51] LABS: Albumin, Blood 1.1 g/dL (3.4-5.0); Anion Gap 3 mmol/L (6-16); Blood Urea Nitrogen 61 mg/dL (8-24); CO2, Blood 33 mmol/L (21-32); Chloride, Blood 108 mmol/L (98-108); Creatinine, Blood 5.54 mg/dL (0.60-1.20); Glomerular Filtration Rate 10 (60-); Glucose, Blood 312 mg/dL (70-99); Phosphorus, Blood 5.2 mg/dL (2.5-4.9); Potassium, Blood 3.9 mmol/L (3.5-5.5); Sodium, Blood 144 mmol/L (136-145)
--- NOTE | 2021-04-19 15:54 | NUR ---
Family meeting this afternoon with Dr Bunch, this PC RN, Pt's daughter, Pt's daughter's SO and Pt's spouse Rashi. Dr Bunch provides updates and discusses additional options. Family reports Pt would want to focus on comfort at this point in his life. Educated on comfort care philosophy with V/U made by family. Dr Bunch will place comfort care orders. Continued therapeutic listening and answered questions. Family express appreciation and report no other concerns at this time. Spoke with Primary RN Ghulam and discussed case. Palliative Care will remain available.
--- NOTE | 2021-04-19 18:10 | NUR ---
SUMMARY PT RESTING IN BED, RESTLESS AND AGITATED OR ASLEEP, FAMILY HAS BEEN IN TO VISIT AND MEET WITH DR CHANEY AND PALLIATIVE CARE RN, PLAN IS TO MAKE PT COMFORT CARE AND DC DIALYSIS, PT WITH POOR APPETITE, NO S/S PAIN OR DISTRESS, WILL CONT TO MONITOR
--- NOTE | 2021-04-20 05:41 | NUR ---
PM SHIFT SUMMARY PATIENT REFUSED ALL OF HIS ORAL MEDICATIONS THIS EVENING. I GAVE HIM HIS INSULIN GLARGINE PER SCHEDULE. HE ALSO RECEIVED 2MG IV ATIVAN. PATIENT HAS BEEN ASLEEP SINCE ROUGHLY 0030 OR 0100. WHEN HE CHANGED HIM, HE WAS ATTMEPTING TO PUSH OFF THE SIDE RAIL WITH HIS LEGS AND ONE FREE ARM. NOEL CATHETER IS IN PLACE. MIDLINE FLUSES WELL. DOCTOR SPOKE WITH FAMILY YESTERDAY AND PLAN HAS BEEN CHANGED TO COMFORT CARE AT THIS TIME.
--- NOTE | 2021-04-20 13:12 | NUR ---
Comfort Care Visit Pt resting in bed with his eyes closed. Pt appears comfortable with no S/S of distress at this time. Pt left undisturbed at this time. Spoke with Primary RN Ana Luisa. No concerns reported at this time. Palliative Care will remain available.
--- NOTE | 2021-04-20 17:26 | NUR ---
PATIENT REMAIN ON COMFORT CARE. PATIENT ATE MINIMAL AMOUNT OF FOOD. DENIES PAIN.FAMILY SPEND THE DAY AT PATIENT BEDSIDE. ROSA MARIA PALLATIVE CARE NURSE MET WITH PATIENT AND DISCUSS PLAN OF CARE WITH PATIENT DAUGHTER.
--- NOTE | 2021-04-21 05:34 | NUR ---
PM SHIFT SUMMARY PATIENT SLEPT THE ENTIRE SHIFT ONCE HE TOOK HIS 2100 MEDICATIONS. HE TOOK HIS SEROQUEL THIS EVENING, WHICH HELPED DRASTICALLY WITH GETTING HIM NEEDED REST. HE IS STILL IN BUE WRIST RESTRAINTS AND MITTEN, WELL THE VEST. MANY MEDICATIONS WERE DC'ED DUE TO HIM BEING COMFORT CARE.NOEL CATHETER IN PLACE AND PATENT.
--- NOTE | 2021-04-21 07:13 | NUR ---
PATIENT TRISH MADE AWARE OF THAT HE IS .
--- NOTE | 2021-04-21 08:07 | NUR ---
Pt's spouse and family arrive to office and reporting getting a phone call that Pt has . Walked with family to Pt's room and offered emotional support. Offered condolences and therapeutic listening. Family reports [facility] is preference. Family appears to be grieving appropriately. Spoke with house coordinatorJENNA Levine and relayed home choice. Palliative Care will remain available.
== END 2021-04-21 07:05 | DRG 673 ==
LOC: ER 18:03 → MEDS 21:36 → ICUW 21:36 → PCU 21:36 → SURS 21:36 → PCU 23:50 → SURS 03-01 16:05 → MEDS 03-07 17:15 → ICUW 03-21 13:27 → PCU 04-03 14:01 → MEDS 04-08 12:56
PROVIDERS: Emergency Medicine; Family Medicine; Hospitalist; Internal Medicine; Internal Medicine Endocrinology, Diabetes & Metabolism; Internal Medicine Nephrology; Pharmacist; Pharmacist Pharmacotherapy; Student in an Organized Health Care Education/Training Program; Surgery; ADMIT Internal Medicine
PROC: 02HV33Z Insertion of Infusion Device into Superior Vena Cava, Percutaneous Approach (ICD-10-PCS; 2021-03-04)
PROC: B518ZZA Fluoroscopy of Superior Vena Cava, Guidance (ICD-10-PCS; 2021-03-04)
PROC: 0JH63XZ Insertion of Tunneled Vascular Access Device into Chest Subcutaneous Tissue and Fascia, Percutaneous Approach (ICD-10-PCS; principal; 2021-03-04 08:00)
PROC: 5A1D70Z Performance of Urinary Filtration, Intermittent, Less than 6 Hours Per Day (ICD-10-PCS; 2021-03-05)
DX: N17.9 Acute kidney failure, unspecified (principal); G92.8 Other toxic encephalopathy; I62.03 Nontraumatic chronic subdural hemorrhage; J69.0 Pneumonitis due to inhalation of food and vomit; G04.90 Encephalitis and encephalomyelitis, unspecified; I82.612 Acute embolism and thrombosis of superficial veins of left upper extremity; Z66 Do not resuscitate; Z51.5 Encounter for palliative care; N13.8 Other obstructive and reflux uropathy; E87.0 Hyperosmolality and hypernatremia; F03.91 Unspecified dementia, unspecified severity, with behavioral disturbance; J90 Pleural effusion, not elsewhere classified; F05 Delirium due to known physiological condition; E87.2 Acidosis; Z20.822 Contact with and (suspected) exposure to COVID-19; Z78.1 Physical restraint status; N04.1 Nephrotic syndrome with focal and segmental glomerular lesions; E87.5 Hyperkalemia; E86.0 Dehydration; E83.39 Other disorders of phosphorus metabolism; E83.51 Hypocalcemia; R11.10 Vomiting, unspecified; K59.00 Constipation, unspecified; E87.6 Hypokalemia; I16.0 Hypertensive urgency; E10.9 Type 1 diabetes mellitus without complications; I10 Essential (primary) hypertension; N26.9 Renal sclerosis, unspecified; R31.9 Hematuria, unspecified; D63.1 Anemia in chronic kidney disease; N40.1 Benign prostatic hyperplasia with lower urinary tract symptoms; N18.6 End stage renal disease; E78.5 Hyperlipidemia, unspecified; E03.9 Hypothyroidism, unspecified; Z79.82 Long term (current) use of aspirin; Z79.4 Long term (current) use of insulin; Z79.899 Other long term (current) drug therapy; Z87.891 Personal history of nicotine dependence
CPT/HCPCS: 0241U; 36415; 50200; 51703; 70450; 70551; 71045; 71046; 76770; 77001; 77012; 80048; 80053; 80061; 80069; 80074; 80076; 80202; 81001; 81050; 82140; 82248; 82330; 82550; 82570; 82784; 82947; 83516; 83520; 83735; 83880; 84100; 84132; 84145; 84153; 84154; 84156; 84165; 84166; 84300; 84439; 84443; 84481; 84484; 84550; 85007; 85014; 85018; 85025; 85027; 85610; 85651; 85730; 86037; 86038; 86140; 86160; 86225; 86317; 86334; 86335; 86376; 86704; 86708; 86800; 86803; 87040; 87077; 87086; 87186; 87340; 87389; 88329; 92526; 92610; 93005; 93010; 93306; 93970; 94660; 94760; 94762; 95819; 96374; 96375; 97110; 97161; 97165; 97535; 99285-25; A9270; C1750; C1751; J0133; J0360; J0610; J0690; J0696; J1100; J1630; J1642; J1644; J1650; J1815; J2060; J2405; J2704; J2765; J2930; J3010; J3360; J3370; J3411; J3486; J7030; J7040; J7042; J7050; J7512; P9046

== ENCOUNTER → 2021-02-20 | Outpatient (CLI) | payer BC ==
[~2021-02-20] MED LIST: ASPI81CH PO; ATOR20 PO; DICL75ER PO; EUTHYROX50 MCG PO; GVOKE HYPO0.5 MG/0.2 SQ; HUMALOG KW100 UNIT/1 SQ; TOUJEO SOL300 UNIT/2
[2021-02-20 16:57] LABS: BASOPHILS ABSOLUTE AUTO 0.05 K/mm3 (0.00-0.23); BASOPHILS PERCENT AUTO 1 % (0-2); EOSINOPHILS ABSOLUTE AUTO 0.07 K/mm3 (0.00-0.68); EOSINOPHILS PERCENT AUTO 1 % (0-6); Hematocrit 46.8 % (37.0-53.0); Hemoglobin 15.5 g/dL (13.5-17.5); IMMATURE GRAN ABSOLUTE AUTO 0.03 K/mm3 (0.00-0.10); IMMATURE GRAN PERCENT AUTO 0 % (0-1); LYMPHOCYTES ABSOLUTE AUTO 0.62 K/mm3 (0.84-5.20); LYMPHOCYTES PERCENT AUTO 6 % (21-46); MONOCYTES ABSOLUTE AUTO 0.33 K/mm3 (0.16-1.47); MONOCYTES PERCENT AUTO 3 % (4-13); Mean Corpuscular HGB 30.9 pg (26.0-34.0); Mean Corpuscular HGB Conc 33.1 g/dL (31.5-36.5); Mean Corpuscular Volume 93 fL (80-100); Mean Platelet Volume 8.9 fL (9.1-12.4); NEUTROPHILS ABSOLUTE AUTO 8.63 K/mm3 (1.96-9.15); NEUTROPHILS PERCENT AUTO 89 % (41-73); Platelet Count 306 K/mm3 (150-400); RDW Standard Deviation 44.1 fL (35.1-46.3); Red Blood Cell Count 5.02 M/mm3 (4.30-5.90); White Blood Cell Count 9.73 K/mm3 (4.00-11.30)
[2021-02-20 17:15] LABS: Albumin, Blood 1.4 g/dL (3.4-5.0); Albumin/Globulin Ratio 0.4 (0.8-1.8); Bilirubin, Total 0.2 mg/dL (0.1-1.0); Bun/Creatinine Ratio 25.5 (12.0-20.0); Calcium, Blood 8.4 mg/dL (8.5-10.1); Creatinine, Blood 5.5 mg/dL (0.60-1.20); Globulin, Blood 3.2 g/dL (2.2-4.0); Total Protein, Blood 4.6 g/dL (6.4-8.2)
[2021-02-20 17:17] LABS: Potassium, Blood 6.1 mmol/L (3.5-5.5)
[2021-02-20 18:08] LABS: Albumin, Blood 1.5 g/dL (3.4-5.0); Albumin/Globulin Ratio 0.5 (0.8-1.8); Bilirubin, Total 0.2 mg/dL (0.1-1.0); Calcium, Blood 8.5 mg/dL (8.5-10.1); Creatinine, Blood 5.6 mg/dL (0.60-1.20); Globulin, Blood 3.3 g/dL (2.2-4.0); Total Protein, Blood 4.8 g/dL (6.4-8.2)
[2021-02-20 18:09] LABS: Potassium, Blood 6.1 mmol/L (3.5-5.5)
== END ==
LOC: LAB 16:53 → LAB SHORT 16:53
PROVIDERS: Family Medicine
DX: E10.65 Type 1 diabetes mellitus with hyperglycemia (principal)
CPT/HCPCS: 80053; 85025